=== PATIENT | female | born 1950 | race Caucasian/White ===

== ENCOUNTER 2018-07-22 00:54 | Outpatient (CLI) | payer MEDICARE, BC, SELFPAY ==
[2018-07-22 13:20] LABS: Cholesterol 216 mg/dL (50-200); HDL Cholesterol 74 mg/dL (40-60); LDL CHOLESTEROL 126 mg/dL (<100); TSH 2.12 uIU/mL (0.358-3.74); Triglyceride 82 mg/dL (30-150)
== END 2018-07-22 01:14 ==
PROVIDERS: PCP Family Medicine; Visit Provider Family Medicine
DX: E03.9 Hypothyroidism, unspecified (principal); E78.5 Hyperlipidemia, unspecified
CPT/HCPCS: 36415; 80061; 83721; 84443

== ENCOUNTER 2018-08-21 00:45 | Outpatient (CLI) | payer MEDICARE, BC, SELFPAY ==
--- NOTE | 2018-08-21 15:15 | DI.MAMMO_ITS ---
SYMPTOMS/DIAGNOSIS: BREAST CA SCREENING, Z12.31 MAMMOGRAMS: Mammograms were interpreted according to the usual protocol including computer analysis with CAD system, tomosynthesis and C view imaging. Comparison is with the prior examinations. No masses or microcalcifications are seen. There is nothing to suggest malignancy. IMPRESSION: Negative mammogram. Routine screening is recommended. Category 1 , breast density B. MQSA ASSESSMENT OF FINDINGS: Negative. Category 1. Patient will receive a letter notifying them of these results. BI-RADS category B. There are scattered areas of fibroglandular density.
== END 2018-08-21 01:05 ==
PROVIDERS: PCP Family Medicine; Visit Provider Obstetrics & Gynecology Gynecology
DX: Z12.31 Encounter for screening mammogram for malignant neoplasm of breast (principal)
CPT/HCPCS: 77063; 77067

== ENCOUNTER 2018-10-29 01:59 | Outpatient (CLI) | payer MEDICARE, BC, SELFPAY ==
[2018-10-29 12:45] LABS: Bilirubin Negative (Negative); Blood Negative (Negative); Clarity Clear; Glucose Negative (Negative); Ketones Negative (Negative); Leukocyte Esterase Small (Negative); Nitrite Negative (Negative); Specific Gravity 1.015 (1.005-1.025); Urobilinogen 0.2 EU/dL (Up TO 0.2)
[2018-10-29 13:04] LABS: Bacteria Few HPF (Negative); C & S Indicated? Yes; Casts Negative LPF (Negative); Crystals Negative HPF (Negative); Epithelial Cells Few HPF (Negative); Mucus Trace (Negative); Other Cells Rare Renal (Negative); RBC Negative (0-2)
== END 2018-10-29 02:19 ==
PROVIDERS: Emergency Medicine; PCP Family Medicine; Visit Provider Family Medicine
DX: R30.0 Dysuria (principal)
CPT/HCPCS: 81003; 81015; 87086

== ENCOUNTER 2019-07-28 02:17 | Outpatient (CLI) | payer MEDICARE, BC, SELFPAY ==
[2019-07-28 11:13] LABS: HCT 39.5 % (36.0-46.0); HGB 12.9 g/dL (12.0-15.5); Mean Corp. HGB Concentration 32.7 g/dL (32.0-36.0); Mean Corpuscular Hemoglobin 29.5 pg (27.0-33.0); Mean Corpuscular Volume 90.2 fL (80-95); Mean Platelet Volume 10.3 fL (8.0-11.0); Platelet Count 187 x1000/uL (130-400); RBC 4.38 m/cumm (4.00-5.20); RBC Distribution Width 13.3 % (11.7-14.6); White Blood Cell Count 5.12 k/cumm (4.4-10.8)
[2019-07-28 11:46] LABS: BUN 19 mg/dL (7-18); CREATININE 0.76 mg/dL (0.55-1.02); Chloride 102 mmol/L (98-107); Glucose 115 mg/dL (70-100); Potassium 3.9 mmol/L (3.5-5.1); Sodium 140 mmol/L (136-145); TSH 1.88 uIU/mL (0.36-3.74)
[2019-07-29 08:42] LABS: Calculated LDL 154 mg/dL; Cholesterol 251 mg/dL (50-200); HDL Cholesterol 81 mg/dL (40-60); Triglyceride 82 mg/dL (30-150)
== END 2019-07-28 02:37 ==
PROVIDERS: PCP Family Medicine; Visit Provider Family Medicine
DX: E03.9 Hypothyroidism, unspecified (principal); I10 Essential (primary) hypertension; E78.5 Hyperlipidemia, unspecified
CPT/HCPCS: 36415; 80048; 80061; 85027; 84443

== ENCOUNTER 2019-08-23 13:40 | Outpatient (REF) | payer MEDICARE, BC, SELFPAY ==
--- NOTE | 2019-08-23 13:00 | PAPFT_PTH ---
PATIENT: Sienna Ramirez LOC: [facility] U#:[id number] AGE/SX: 69/F ROOM: RE08/23/[address]: Love Osorio : 1950 BED: DIS: 08/23/2019 SPEC #: [id number] RECD: 08/23/19 18:46 STATUS: WINDY REQ #: [id number] YOLY: 08/23/19 13:[address]: Love Osorio [facility]PT[facility] Cytology RECD BY: Irlanda Dee ENTERED: 08/23/19 18:47 SP TYPE: PAPFT ESPERANZA DR: Matt Gibson MD Tissues: 1 - CX/ENDOCX FOR PAP SMEARS Procedures: PAP THIN PREP/UVM Screening HPV DNA PROBE Comments: [id number]
== END 2019-08-23 14:00 ==
LOC: LBN 13:40
PROVIDERS: PCP Family Medicine; Visit Provider Obstetrics & Gynecology Gynecology
DX: Z12.4 Encounter for screening for malignant neoplasm of cervix (principal); Z11.51 Encounter for screening for human papillomavirus (HPV)
CPT/HCPCS: 88142; 87624

== ENCOUNTER 2019-08-24 00:45 | Outpatient (CLI) | payer MEDICARE, BC, SELFPAY ==
--- NOTE | 2019-08-24 15:25 | DI.MAMMO_ITS ---
EXAM: MG MAMMO SCREENING CLINICAL HISTORY: screening TECHNIQUE: Bilateral full field digital CC and MLO mammographic images were obtained with 3D tomosyn thesis and utilizing computer aided detection (CAD). COMPARISON: Available for comparison. FINDINGS: Masses/Architectural Distortion: There is a focal asymmetric density in the posterior central right b reast appreciated on the craniocaudad view. This area should be further evaluated with a spot compre ssion view. Ultrasound may be indicated at that time. Microcalcifications: No suspicious pleomorphic-type are seen. Skin Thickening/Nipple Retraction: None. IMPRESSION: 1. Focal asymmetric density in the posterior central right breast. This area should be further evalu ated with a spot compression view and ultrasound. BI-RADS Cat 0 - Assessment Incomplete: Need additional imaging evaluation Breast Density - Category B - Scattered areas of fibroglandular density A negative radiographic report should not delay biopsy if a dominant or clinically suspicious mass is present. Up to ten percent of cancers are not identified on mammography. A negative report may reinforce clinical impression. Adenosis and dense breasts may obscure an underlying neoplasm. False positive reports average 6 to 10%. Patient will receive a letter notifying them of these results.
== END 2019-08-24 01:05 ==
PROVIDERS: PCP Family Medicine; Visit Provider Obstetrics & Gynecology Gynecology
DX: Z12.31 Encounter for screening mammogram for malignant neoplasm of breast (principal); R92.8 Other abnormal and inconclusive findings on diagnostic imaging of breast
CPT/HCPCS: 77063; 77067

== ENCOUNTER 2019-08-31 01:08 | Outpatient (CLI) | payer MEDICARE, BC, SELFPAY ==
--- NOTE | 2019-08-31 10:05 | DI.MAMMO_ITS ---
EXAM: MG MAMMO SCREEN CALL BACK UNI CLINICAL HISTORY: FOCAL ASYMMETRIC DENSITY IN POSTERIOR CENTRAL RT BREAST TECHNIQUE: Bilateral full field digital CC and MLO mammographic images were obtained with 3D tomosyn thesis and utilizing computer aided detection (CAD). COMPARISON: 2009 through 08/24/19. FINDINGS: A spot compression CC view with tomography was performed for a small area of nodular asymmetry in th e central right breast. No persistent abnormality is seen on the additional views. IMPRESSION: Category 1, negative mammogram. Yearly screening mammography is recommended. Breast Density - Category B - Scattered areas of fibroglandular density.
== END 2019-08-31 01:28 ==
PROVIDERS: PCP Family Medicine; Visit Provider Obstetrics & Gynecology Gynecology
DX: Z12.31 Encounter for screening mammogram for malignant neoplasm of breast (principal); R92.8 Other abnormal and inconclusive findings on diagnostic imaging of breast; N64.59 Other signs and symptoms in breast
CPT/HCPCS: 77063; 77067

== ENCOUNTER 2020-07-21 03:04 | Outpatient (CLI) | payer MEDICARE, BC, SELFPAY ==
[2020-07-24 11:41] LABS: Patient Race White; SARS-CoV-2 RNA Undetected (Undetected); SARS-CoV-2 Specimen Source Nasopharynx
== END 2020-07-21 03:24 ==
PROVIDERS: PCP Nurse Practitioner; Visit Provider Nurse Practitioner Family
DX: J02.9 Acute pharyngitis, unspecified (principal); J06.9 Acute upper respiratory infection, unspecified
CPT/HCPCS: U0003

== ENCOUNTER 2020-08-09 04:44 | Outpatient (CLI) | payer MEDICARE, BC, SELFPAY ==
[2020-08-09 13:29] LABS: Hemoglobin A1C 5.8 % (<5.7)
[2020-08-09 13:39] LABS: Calculated LDL 125 mg/dL (<100); Cholesterol 227 mg/dL (<200); HDL Cholesterol 81 mg/dL (40-60); Triglyceride 107 mg/dL (<150)
== END 2020-08-09 05:04 ==
PROVIDERS: PCP Nurse Practitioner; Visit Provider Nurse Practitioner
DX: E03.9 Hypothyroidism, unspecified (principal); R73.01 Impaired fasting glucose
CPT/HCPCS: 36415; 80061; 83036

== ENCOUNTER 2020-09-18 02:44 | Outpatient (CLI) | payer SELFPAY ==
[2020-09-18 12:55] LABS: Abs Immature Grans 0.02 10^3/uL (0.0-0.06); Absolute Basophil Count 0.01 10^3/uL (0.0-0.2); Absolute Eosinophil Count 0.26 10^3/uL (0.0-0.7); Absolute Lymphocyte Count 1.48 10^3/uL (1.2-3.4); Absolute Monocyte Count 0.45 10^3/uL (0.1-0.8); Absolute Neutrophil Count 2.58 10^3/uL (1.2-6.7); Basophils % 0.2; Eosinophils % 5.4; HCT 38.3 % (36.0-46.0); HGB 12.4 g/dL (11.2-15.7); Immature Grans % 0.4; Lymphocytes % 30.8; MCH 28.8 pg (27.0-33.0); MCHC 32.4 % (32.0-36.0); MCV 88.9 fL (80-95); MPV 10.6 fL (8.0-11.0); Monocytes % 9.4; Neutrophils % 53.8; Nucleated RBC 0 %; Platelet Count 187 10^3/uL (130-400); RBC 4.31 10^6/uL (3.93-5.22); RDW 13.2 % (11.7-14.6); RDW-SD 43.8 fL
[2020-09-18 13:11] LABS: PTT Activated 24.8 sec (21.0-27.5); Prothrombin Time 9.9 sec (9.3-11.0)
[2020-09-18 13:24] LABS: ALT 21 U/L (14-59); AST 21 U/L (15-37); Albumin 3.9 g/dL (3.4-5.0); Alkaline Phosphatase 63 U/L (46-116); BUN 25 mg/dL (7-18); Bilirubin, Total 0.5 mg/dL (0.2-1.0); CREATININE 0.83 mg/dL (0.55-1.02); Calcium 8.9 mg/dL (8.5-10.1); Chloride 103 mmol/L (98-107); Creatine Kinase 39 U/L (26-192); Glucose 113 mg/dL (74-106); LDH 182 U/L (81-234); PHOSPHORUS 3.9 mg/dL (2.6-4.7); Potassium 3.9 mmol/L (3.5-5.1); Sodium 138 mmol/L (136-145); Total Protein 6.9 g/dL (6.4-8.2)
[2020-09-18 13:41] LABS: GGT 33 U/L (5-55)
== END 2020-09-18 03:04 ==
PROVIDERS: PCP Nurse Practitioner; Visit Provider Internal Medicine Pulmonary Disease
DX: Z79.899 Other long term (current) drug therapy (principal); Z00.6 Encounter for examination for normal comparison and control in clinical research program
CPT/HCPCS: 36415; 80053; 82550; 82977; 83615; 84100; 84443; 84550; 85025; 85610; 85730

== ENCOUNTER 2020-12-06 02:24 | Outpatient (REF) | payer SELFPAY ==
[2020-12-06 12:42] LABS: Abs Immature Grans 0.01 10^3/uL (0.0-0.06); Absolute Basophil Count 0.02 10^3/uL (0.0-0.2); Absolute Lymphocyte Count 1.55 10^3/uL (1.2-3.4); Absolute Monocyte Count 0.53 10^3/uL (0.1-0.8); Absolute Neutrophil Count 2.78 10^3/uL (1.2-6.7); Basophils % 0.4; Eosinophils % 5.8; HCT 38.5 % (36.0-46.0); HGB 12.6 g/dL (11.2-15.7); Immature Grans % 0.2; Lymphocytes % 29.9; MCH 29.2 pg (27.0-33.0); MCHC 32.7 % (32.0-36.0); MCV 89.1 fL (80-95); MPV 10.7 fL (8.0-11.0); Monocytes % 10.2; Neutrophils % 53.5; Nucleated RBC 0 %; Platelet Count 192 10^3/uL (130-400); RBC 4.32 10^6/uL (3.93-5.22); RDW 13.2 % (11.7-14.6); RDW-SD 43.2 fL; WBC 5.19 10^3/uL (4.4-10.8)
[2020-12-06 13:01] LABS: ALT 26 U/L (14-59); AST 25 U/L (15-37); Alkaline Phosphatase 61 U/L (46-116); Anion Gap 7.4 mmol/L (3-11); BUN 21 mg/dL (7-18); Bilirubin, Total 0.5 mg/dL (0.2-1.0); CO2 28.6 mmol/L (21.0-32.0); CREATININE 0.7 mg/dL (0.55-1.02); Calcium 8.9 mg/dL (8.5-10.1); Chloride 103 mmol/L (98-107); Creatine Kinase 52 U/L (26-192); Glucose 100 mg/dL (74-106); LDH 198 U/L (81-234); Potassium 3.9 mmol/L (3.5-5.1); Sodium 139 mmol/L (136-145); TSH 4.05 uIU/mL (0.36-3.74); Total Protein 7.3 g/dL (6.4-8.2)
[2020-12-06 13:04] LABS: PTT Activated 26.1 sec (21.0-27.5); Prothrombin Time 9.9 sec (9.3-11.0)
[2020-12-06 13:21] LABS: GGT 29 U/L (5-55)
== END 2020-12-06 02:25 | disposition home or self-care (01) ==
LOC: LOS 02:24
PROVIDERS: PCP Nurse Practitioner; Visit Provider Internal Medicine Pulmonary Disease
DX: Z00.6 Encounter for examination for normal comparison and control in clinical research program (principal)
CPT/HCPCS: 36415; 80053; 82550; 82977; 83615; 84100; 84443; 84550; 85025; 85610; 85730

== ENCOUNTER 2021-01-31 03:02 | Outpatient (CLI) | payer MEDICARE, BC, SELFPAY ==
[2021-01-31 13:31] LABS: TSH 2.28 uIU/mL (0.36-3.74)
== END 2021-01-31 03:03 | disposition home or self-care (01) ==
LOC: LOS 03:02
PROVIDERS: PCP Nurse Practitioner; Visit Provider Nurse Practitioner
DX: E03.9 Hypothyroidism, unspecified (principal)
CPT/HCPCS: 36415; 84443

== ENCOUNTER 2021-02-02 03:05 | Outpatient (CLI) | payer MEDICARE, BC, SELFPAY ==
--- NOTE | 2021-02-02 12:45 | DI.MAMMO_ITS ---
EXAM: MAMMO SCREENING CLINICAL HISTORY: screening,Z12.39 TECHNIQUE: Mammograms were interpreted according to the usual protocol including computer analysis w [employer] CAD system, tomosynthesis and C-view imaging. COMPARISON: 2010 through 2018 FINDINGS: The breasts are composed of scattered fibroglandular densities, Breast Density category B. The right MLO view shows mild motion and suboptimal positioning. A repeat right MLO view is requeste d. No suspicious masses or suspicious microcalcifications are seen. No skin thickening or abnormal axillary lymph nodes are seen. There has been no significant change from prior exams. IMPRESSION: BI-RADS Category 0 - Assessment Incomplete: Need additional imaging evaluation. A repeat right MLO v iew is requested due to motion.. Breast Density - Category B, scattered fibroglandular densities. A negative radiographic report should not delay biopsy if a dominant or clinically suspicious mass is present. Up to ten percent of cancers are not identified on mammography. A negative report may reinforce clinical impression. Adenosis and dense breasts may obscure an underlying neoplasm. False positive reports average 6 to 10%. Patient will receive a letter notifying them of these results.
== END 2021-02-02 03:25 ==
PROVIDERS: PCP Nurse Practitioner; Visit Provider Nurse Practitioner
DX: Z12.31 Encounter for screening mammogram for malignant neoplasm of breast (principal); R92.8 Other abnormal and inconclusive findings on diagnostic imaging of breast
CPT/HCPCS: 77063; 77067

== ENCOUNTER 2021-02-07 02:53 | Outpatient (CLI) | payer MEDICARE, BC, SELFPAY ==
--- NOTE | 2021-02-07 | DI.MAMMO_ITS ---
EXAM: MG MAMMO SCREEN CALL BACK UNI -RIGHT CLINICAL HISTORY: REPEAT VIEW DUE TO MOTION AND SUBOPTIMAL POSITIONING, F/U MAMMO. TECHNIQUE: Unilateral REPEAT RIGHT MLO VIEW WELL SPOT COMPRESSION CC VIEW were obtained with 3 D tomosynthesis and utilizing computer aided detection (CAD). . COMPARISON: Prior mammograms dating back 2010 were reviewed. This additional imaging was performe d due to motion on the right MLO view of the screening mammogram performed 02/02/2021 FINDINGS: Repeat right MLO view on today's study appears unremarkable. We also performed additional spot compr ession CC view because of an asymmetric density seen on the 4 12/30/2020 screening CC view located ap proximately 6 cm in from the nipple..This additional spot view renders this area less concerning. Re view of prior mammograms also reveal that this area underwent spot-compression view on August 31, 019. This asymmetric density was not evident on interval mammograms but is actually evident and unch anged from mammogram of April 2012. IMPRESSION: No radiographic evidence of malignancy in the right breast Appropriate follow-up is to keep this patient yearly mammogram schedule, with earlier imaging if a se lf detected breast change is noted.. The patient was informed of these findings and recommendations prior to leaving the department today. BI-RADS Category 2 - Benign Findings Breast Density - Category B - Scattered areas of fibroglandular density Breast density Category C or D implies that the patient has dense breast tissue. Dense breast tissue can make it harder to find cancer on a mammogram. Dense breast tissue is also associated with an incr eased risk of breast cancer. This information about the result of the mammogram report was provided to the patient to raise their awareness. Use this report when you speak with the patient about their risks for breast cancer, which includes their family history. At that time, you may recommend additional screening tests (Ultrasoun d or MRI) as these tests may add significant information. A negative radiographic report should not delay biopsy if a dominant or clinically suspicious mass is present. Up to ten percent of cancers are not identified on mammography. A negative report may reinforce clinical impression. Adenosis and dense breasts may obscure an underlying neoplasm. False positive reports average 6 to 10%. Patient will receive a letter notifying them of these results.
== END 2021-02-07 03:13 ==
PROVIDERS: PCP Nurse Practitioner; Visit Provider Nurse Practitioner
DX: Z12.31 Encounter for screening mammogram for malignant neoplasm of breast (principal); R92.8 Other abnormal and inconclusive findings on diagnostic imaging of breast; N64.59 Other signs and symptoms in breast
CPT/HCPCS: 77063; 77067

== ENCOUNTER 2021-08-15 01:38 | Outpatient (CLI) | payer MEDICARE, BC, SELFPAY ==
[2021-08-15 12:22] LABS: HGB 13.9 g/dL (11.2-15.7); MCH 28.9 pg (27.0-33.0); MCHC 33.1 % (32.0-36.0); MCV 87.3 fL (80-95); MPV 9.6 fL (8.0-11.0); Platelet Count 378 10^3/uL (130-400); RBC 4.81 10^6/uL (3.93-5.22); RDW 12.3 % (11.7-14.6); RDW-SD 39.9 fL; WBC 9.86 10^3/uL (4.4-10.8)
[2021-08-15 12:55] LABS: CREATININE 0.8 mg/dL (0.55-1.02); Calculated LDL 136 mg/dL (<100); Cholesterol 273 mg/dL (<200); HDL Cholesterol 119 mg/dL (40-60); Potassium 3.7 mmol/L (3.5-5.1); Triglyceride 90 mg/dL (<150)
[2021-08-15 13:25] LABS: Hemoglobin A1C 6.1 % (<5.7)
== END 2021-08-15 01:39 | disposition home or self-care (01) ==
LOC: LOS 01:39
PROVIDERS: PCP Nurse Practitioner; Visit Provider Nurse Practitioner
DX: I10 Essential (primary) hypertension (principal); E78.2 Mixed hyperlipidemia; R73.01 Impaired fasting glucose
CPT/HCPCS: 36415; 80061; 85027; 82565; 83036; 84132

== ENCOUNTER 2021-08-30 13:25 | Inpatient (IN) | payer MEDICARE, BC, SELFPAY ==
[2021-08-30] VITALS (91 sets, daily range): BP systolic 99–149; BP diastolic 50–92; PULSE 69–154; RESP 1–35; TEMP 36–36.8; O2SAT 68–100
--- NOTE | 2021-08-30 13:30 | RT.EKG_ITS ---
APPROVED REPORT Exam: Resting ECG Reason for Exam: sob Patient Location: E HR:93 bpm ECG Measurements Heart Rate 93 AXIS OH 157 P 5 QRSd 113 QRS -30 QT 349 T -14 QTc 434 Conclusion Sinus rhythm...normal P axis, V-rate 60- 99 Atrial premature complex...SV complex w/ short R-R interval Left ventricular hypertrophy...multiple LVH criteria
[2021-08-30] MEDS: methylPREDNISolone SUCC 40 MG VIAL IVP (15:32)
[2021-08-30 15:33] LABS: Source Nasal/Nares
[2021-08-30 15:35] LABS: Abs Immature Grans 0.06 10^3/uL (0.0-0.06); Absolute Basophil Count 0.01 10^3/uL (0.0-0.2); Absolute Lymphocyte Count 0.32 10^3/uL (1.2-3.4); Absolute Monocyte Count 0.25 10^3/uL (0.1-0.8); Absolute Neutrophil Count 6.07 10^3/uL (1.2-6.7); Basophils % 0.1; Eosinophils % 1.5; HCT 32.2 % (36.0-46.0); HGB 10.9 g/dL (11.2-15.7); Immature Grans % 0.9; Lymphocytes % 4.7; MCH 28.6 pg (27.0-33.0); MCHC 33.9 % (32.0-36.0); MCV 84.5 fL (80-95); MPV 9.2 fL (8.0-11.0); Monocytes % 3.7; Neutrophils % 89.1; Nucleated RBC 0 %; RBC 3.81 10^6/uL (3.93-5.22); RDW 12.8 % (11.7-14.6); RDW-SD 39.4 fL; WBC 6.81 10^3/uL (4.4-10.8)
[2021-08-30 15:36] LABS: Platelet Count 144 10^3/uL (130-400)
--- NOTE | 2021-08-30 15:50 | DI.RAD_ITS ---
Exam(s) XR PORTABLE CHEST AP EXAM: XR PORTABLE CHEST AP CLINICAL HISTORY: hypoxia. TECHNIQUE: 2D digital imaging was performed. COMPARISON: CR CHEST 2 VIEWS PA,LAT from 12/08/2015 FINDINGS: Heart size is upper normal. The mediastinum is not widened. Increased interstitial markings both lungs. Some nodular-type infiltrate evident in the left lower l obe. No pleural effusions IMPRESSION: Abnormal findings as above. Recommend nonportable PA and lateral views when clinically possible DATA REPOSITORY: RADIATION DOSE DELIVERED: All CT scans at this facility use at least one of these dose optimization techniques: automated exposure control; mA and/or kV adjustment per patient size (includes targeted e xams where dose is matched to clinical indication); or iterative reconstruction.
[2021-08-30 16:03] LABS: ALT 28 U/L (14-59); AST 53 U/L (15-37); Albumin 3.1 g/dL (3.4-5.0); Alkaline Phosphatase 53 U/L (46-116); Anion Gap 7.8 mmol/L (3-11); BUN 19 mg/dL (7-18); Bilirubin, Total 1.1 mg/dL (0.2-1.0); CO2 29.2 mmol/L (21.0-32.0); CREATININE 0.7 mg/dL (0.55-1.02); Calcium 8.4 mg/dL (8.5-10.1); Chloride 92 mmol/L (98-107); Glucose 106 mg/dL (74-106); Magnesium 1.6 mg/dL (1.8-2.4); NT-proBNP 4372 pg/mL (<300); Sodium 129 mmol/L (136-145); Total Protein 6.4 g/dL (6.4-8.2)
[2021-08-30 16:08] LABS: Potassium 2.8 mmol/L (3.5-5.1)
--- NOTE | 2021-08-30 16:15 | DI.CT_ITS ---
Exam(s) CT CHEST PE CTA EXAM: CT CHEST PE CTA CLINICAL HISTORY: increased hypoxia, factor 5 leiden. TECHNIQUE: Imaging Protocol: Axial CT angiography was performed with multi-slice acquisition and mu lti-planar and/or 3D reconstructions. CONTRAST MATERIAL: Intravenous: Omnipaque 350 Contrast volume:100 ml COMPARISON: CT CHEST WITH CONTRAST from 01/19/2016 CR,XR XR PORTABLE CHEST AP from 08/30/2021 FINDINGS: Exam is somewhat limited by respiratory motion and expiratory changes. Pulmonary Arteries: No eviden ce of filling defect to suggest pulmonary emboli. Tracheobronchial tree: Patent where visualized. Mild traction bronchiectasis greater in the lower lob es. Mediastinum and Yuki: No dominant adenopathy or fluid collection. Pulmonary parenchyma: No consolidation or dominant measurable mass. Increased interstitial markings w ith peripheral honeycombing. Peripheral basilar blebs. Bilateral ground-glass opacities with a patc hy appearance. This could represent viral pneumonitis. Pleura: No effusion or pneumothorax. Heart: The heart is not dilated. coronary artery calcifications are seen. Aorta: Thoracic aorta non-dilated. No aneurysm. No dissection. Mild atherosclerotic changes. Upper abdomen: Unremarkable. Bones: Degenerative changes in the spine. Displaced right 10th rib fracture, acute or subacute. Old right 9th rib fracture. IMPRESSION: No evidence of pulmonary embolism. Worsening pulmonary fibrosis and traction bronchiectasis.. Evalua tion of the lungs is limited due to respiratory motion and expiratory changes. Viral pneumonitis rylan fabio expiratory changes. Right 9th rib fracture. RADIATION DOSE DELIVERED: 323.7mGy.cm Total DLP DATA REPOSITORY: All CT scans at this facility are submitted to the National Radiology Data Registry (NRDR) Dose Index Registry (DIR) with the [employer] (ACR). RADIATION OPTIMIZATION: All CT scans at this facility use at least one of these dose optimization te chniques: automated exposure control; mA and/or kV adjustment per patient size (includes targeted exa ms where dose is matched to clinical indication); or iterative reconstruction.
[2021-08-30 16:26] LABS: COVID-19 PCR Negative (Negative)
--- NOTE | 2021-08-30 16:27 | DI.VRAD_ITS ---
PROCEDURE INFORMATION: Exam: XR Chest Exam date and time: 08/30/2021 3:02 PM Age: 71 years old Clinical indication: Other: Hypoxia TECHNIQUE: Imaging protocol: XR of the chest. Views: 1 view. COMPARISON: CT CHEST WITH CONTRAST 01/19/2016 2:21 PM FINDINGS: Lungs: Worsened diffuse peripheral dominant lacy thin subpleural interstitial lung densities. No airspace opacification. No pleural effusion or pneumothorax. Increased similar, smooth benign-appearing biapical capping. The changes are greater on such that there now appears to be peripheral ground-glass opacification raising suspicion for possible superimposed other disease. Pleural spaces: No pneumothorax or pleural effusion. Heart/Mediastinum: Normal heart and cardio-mediastinal silhouette. Vasculature: Normal pulmonary vessels and width of the vascular pedicle. Bones/joints: Suspected lateral right 10th rib fracture. IMPRESSION: Mixed findings in the chest where there is worsened diffuse subpleural interstitial disease such that other more acute airspace disease cannot be excluded. Also, a lower lateral right rib fractures suspected but of unknown chronicity. Given the complexity of the findings, consider chest CT for further evaluation. Dictated and Authenticated by: Rich Ty MD. Ordering:MARIO Davis MD
--- NOTE | 2021-08-30 17:09 | ED.GENADUL_ITS ---
Discharge Plan Disposition Patient Disposition: [facility] INPATIENT Condition: Stable Discharge Details Clinical Impression: Pulmonary fibrosis, Hypoxia, Non-ST elevation LA (NSTEMI) Admit Date/Time: 08/30/21 18:49 Admit Provider: Lisa Li Attending Provider: Lisa Li Primary Care Provider: Regi Helton ED Provider: Praneeth Perez Discharge Data Discharge Date/Time-TO BE ENTERED AT DEPARTURE: 08/30/21 23:21 Medical Decision Making <Ryan Grady MD - Last Filed: 08/31/21 22:04> 1715 --61-year-old female with history of pulmonary fibrosis, on home O2, currently on prednisone taper, here with increased shortness of breath with dyspnea on exertion since yesterday. Patient saturating in the 60s off oxygen. Oxygen was administered. patient saturating in the 90s on 7 L nasal cannula and feeling much better. EKG was reviewed and interpreted by me: Please see report, LVH, no STEMI Chest x-ray was reviewed and interpreted by radiology:FINDINGS: Heart size is upper normal. The mediastinum is not widened. Increased interstitial markings both lungs. Some nodular-type infiltrate evident in the left lower lobe. No pleural effusions. Consider acute pulmonary embolism. CT of the chest was interpreted by radiology: IMPRESSION: Mixed findings in the chest where there is worsened diffuse subpleural interstitial disease such that other more acute airspace disease cannot be excluded. Also, a lower lateral right rib fractures suspected but of unknown chronicity. Given the complexity of the findings, consider chest CT for further evaluation. Labs reviewed and concerning for acute CHF exacerbation with elevated troponin concerning for NSTEMI. Will give ASA. Plan to trend trop. Hypomagnesemia and hypokalemia noted. I will initiate correction and give magnesium 1 g and potassium 20 mg IV. --Second troponin slightly improved. --Trialed lower dose of oxygen which patient tolerated initially and then became hypoxic and developed tachycardia and chest discomfort. High-dose nasal cannula was reapplied. Attempted humidified oxygen and flow insufficient. I requested higher flow humidified O2 from nursing. Nursing salvage supervisor requested RT involvement. 2013--I spoke with Dr. Li who requests that I speak with [facility] regarding potential transfer. Call to [facility] transfer center and they are checking on capacity. <Praneeth Perez MD - Last Filed: 08/30/21 22:19> unfortunately [facility] does not have bed. Respiratory therapy placed her on hfnc and she is stable with this, denies chest pain and apparently the oxygen valve her NC was attached to wasn't functioning. Discussed with Dr. Rivers who accepts for admission HPI <Ryan Grady MD - Last Filed: 08/31/21 22:04> General Mode of arrival: ambulatory . Date/Time Provider Initiated Documentation: 08/30/21 14:59 . Limitations to Documentation: no limitations . Information obtained by: patient . HPI Narrative: 71yo female with history of pulmonary fibrosis, here with increased shortness of breath since yesterday with associated dyspnea on exertion. Shortness of breath is moderate to severe. Improved now with increased oxygen administration. Patient typically uses nasal cannula 2 L over the past month. She has been on a prednisone taper. Patient denies associated chest pain or calf pain. Related Data Home Medications Medication Instructions Recorded Confirmed ibuprofen 2 tab PO TID PRN #100 tab-cap 06/04/13 08/30/21 Sodium Chloride For Inhalation 15 ml INHALATION BID 07/01/17 08/31/21 [Sodium Chloride] nintedanib 100 mg capsule 100 mg PO BID cap 08/17/18 08/30/21 famotidine 20 mg tablet 20 mg PO BID PRN 07/20/19 08/31/21 atenolol 50 mg tablet 50 mg PO DAILY #90 tab 10/19/20 08/30/21 levothyroxine 50 mcg tablet 50 mcg PO DAILY #90 tab-cap 10/19/20 08/30/21 losartan 100 mg tablet 100 mg PO DAILY #90 tab-cap 10/19/20 08/30/21 sertraline 50 mg tablet 50 mg PO DAILY #90 tab-cap 10/19/20 08/30/21 hydrochlorothiazide 25 mg tablet 25 mg PO DAILY 07/31/21 08/30/21 varicella-zoster glycoE [id number] 0.5 ml IM ONCE #1 ea 08/07/21 08/30/21 adj(PF) 50 mcg/0.5 mL IM susp, kit atorvastatin 20 mg PO HS 08/31/21 08/31/21 codeine-guaifenesin 10 ml PO HS PRN 08/31/21 08/31/21 ibuprofen [Advil] 200 mg PO PRN PRN 08/31/21 08/31/21 loratadine-pseudoephedrine 1 tab PO DAILY 08/31/21 08/30/21 [Lorata-D] prednisone 08/31/21 prednisone See Rx Instructions .ROUTE .COMPLEX 08/31/21 08/31/21 Previous Rx's Medication Instructions Recorded atenolol 50 mg tablet 50 mg PO DAILY #90 tab 10/19/20 levothyroxine 50 mcg tablet 50 mcg PO DAILY #90 tab-cap 10/19/20 losartan 100 mg tablet 100 mg PO DAILY #90 tab-cap 10/19/20 sertraline 50 mg tablet 50 mg PO DAILY #90 tab-cap 10/19/20 varicella-zoster glycoE vacc-[id number] 0.5 ml IM ONCE #1 ea 08/07/21 adj(PF) 50 mcg/0.5 mL IM susp, kit Allergies Allergy/AdvReac Type Severity Reaction Status Date / Time Sulfa (Sulfonamide Allergy Unknown Verified 08/30/21 13:50 Antibiotics) General Stated Complaint: SOB DANIEL: 2 Review of Systems <Ryan Grady MD - Last Filed: 08/31/21 22:04> All systems reviewed & are unremarkable except as noted in HPI and below Constitutional Constitutional: Denies fever(s) Cardiovascular Cardiovascular: Reports dyspnea Respiratory Respiratory: Denies cough and Reports dyspnea PFSH <Ryan Grady MD - Last Filed: 08/31/21 22:04> Active Problem List Elevated troponin (Acute) Acute exacerbation of idiopathic pulmonary fibrosis (Acute) Rib fracture (Acute) Hypomagnesemia (Acute) Hypokalemia (Acute) Discharge planning issues (Acute) DVT prophylaxis (Acute) Acute and chronic respiratory failure with hypoxia (Acute) Hypoxia (Acute) Non-ST elevation LA (NSTEMI) (Acute) Factor V Leiden carrier (Chronic) Pulmonary fibrosis (Chronic) Medical History Cervical 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 (10/30/11) h/o LEEP 2004 Chronic low back pain Chronic respiratory failure with hypoxia Depression (06/20/15) Factor V Leiden mutation H/O cervical fibromuscular dysplasia (09/11/15) HTN (hypertension) Hyperlipidemia Hypothyroidism (acquired) Impaired fasting glucose (09/19/12) Mass of skin (12/01/12) Pulmonary fibrosis Pulmonary nodule, right 07/2021- 10 mm, with enlarged hilar lymph node- rec 3 mo f/- [facility] following Rupture of right tympanic membrane (02/07/15) due to infection, healed 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 HIRAM Zaragoza of colonoscopy S/P right knee arthroscopy Family History Mother , AGE 63 Essential hypertension Heart disease Lung cancer Hypertension Father , AGE 81 Essential hypertension Stroke Lung cancer Heart disease Hypertension Sister , AGE 63 Essential hypertension Hyperlipidemia Bladder cancer Maternal Grandfather , age 56 Essential hypertension Heart disease Stroke Hypertension Paternal Grandfather , age 59 Throat cancer Hypertension Maternal Grandmother , age 54 Diabetes Hypertension Paternal Grandmother , age 82 Stomach cancer Hypertension Maternal Aunt Breast cancer Social History Smoking/Tobacco Use Status: Former Tobacco Use Quit Date: 10/13/05 Tobacco: How many years used: 5 Second Hand Exposure: Yes (As a child) Smoking risk assessment performed?: Yes Alcohol Intake: current Alcohol Intake frequency: a few times a week Alcohol type: wine Drug use: Never Substance use type: does not use Caregiver/Support person: No Household members: none Housing: house Number of Children: 3 Communication Needs: None Education Level: college Do you need help understanding health information?: Never 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 Pets and animals: No Sexually active: No Do you think of yourself as: straight/heterosexual Current gender identity: female What is your relationship status?: How often do you talk on the phone with friends or family?: three or more times per week How often do you get together with friends or relatives?: three or more times per week How often do you attend alevism or samaritan services?: 4 or more times per year Do you belong to any clubs or organized social groups?: yes Panel score (0-1 are the most socially isolated patients): 3 What type of physical activity do you participate in: walking Duration: 15-30 minutes/day Frequency: daily Jayde/Confucianism: Cheondoism Special jayde needs: No Seatbelt use: always Helmet use: Yes Helmet use: always Drive intox or ride w/intox waste collection driver: No Female Reproductive History Menstrual Menopause type: natural History History 3 Para Hx # Term Pregnancies 3 Multiple births Hx # Pregnancies Ectopic pregnancies AB induced Hx Number of Living Children AB spontaneous Exam <Ryan Grady MD - Last Filed: 08/31/21 22:04> Const General: cooperative and no acute distress HENMT Head: normocephalic and atraumatic Mouth: moist mucous membranes Eyes Conjunctivae: normal conjunctivae Sclera: normal sclerae EOM: EOM intact bilaterally Neck Neck: trachea midline and supple Resp Effort & Inspection: normal respiratory effort, no cough and not labored Auscultation: rales bilaterally at the base, no rhonchi and no wheezes Cardio Rate: regular rate and not tachycardic Rhythm: regular rhythm GI Palpation: soft, not firm, no guarding, no masses, not rigid and nontender Skin General skin exam: no rashes or lesions noted Neuro General: patient alert, patient awake, patient oriented x3 and tone normal Extrem General: no calf tenderness and no edema Psych Appearance: grossly normal Mental Status: mental status grossly normal Speech and Movement: speech and movement normal Course <Ryan Grady MD - Last Filed: 08/31/21 22:04> Vital Signs Vital signs: Vital Signs Temperature 36.6 C 08/30/21 13:40 Pulse 95 H 08/30/21 13:40 Respiratory Rate 35 H 08/30/21 13:40 Blood Pressure 120/76 08/30/21 13:40 Pulse Oximetry 68 L 08/30/21 13:40 Temperature 36.6 C 08/30/21 13:40 Temperature Source Skin 08/30/21 13:40 Pulse 93 H 08/30/21 16:45 Pulse 95 H 08/30/21 16:50 Respiratory Rate 24 08/30/21 16:50 Respiratory Effort 08/30/21 14:46 Respiratory Depth Normal 08/30/21 14:46 Respiratory Pattern Normal 08/30/21 14:46 Blood Pressure 138/83 08/30/21 16:45 Blood Pressure Mean 94 08/30/21 16:45 Blood Pressure Position Supine 08/30/21 13:40 Pulse Oximetry 97 08/30/21 16:50 Oxygen Delivery Method Nasal Cannula 08/30/21 14:48 Oxygen Flow Rate 10 08/30/21 14:48 Pain Level 0 08/30/21 13:40 Lab/Test Results Lab/Test Results: Laboratory Tests Range/Units 08/30/21 08/30/21 08/30/21 15:25 15:25 15:25 WBC (4.4-10.8) 10^3/uL 6.81 RBC (3.93-5.22) 10^6/uL 3.81 L Hgb (11.2-15.7) g/dL 10.9 L Hct (36.0-46.0) % 32.2 L MCV (80-95) fL 84.5 MCH (27.0-33.0) pg 28.6 MCHC (32.0-36.0) % 33.9 RDW (11.7-14.6) % 12.8 Plt Count (130-400) 10^3/uL 144 D MPV (8.0-11.0) fL 9.2 Immature Gran % 0.9 Neutrophils % 89.1 Lymphocytes % 4.7 Monocytes % 3.7 Eosinophils % 1.5 Basophils % 0.1 Nucleated RBC % % 0 Absolute Neutrophils (1.2-6.7) 10^3/uL 6.07 Absolute Lymphocytes (1.2-3.4) 10^3/uL 0.32 L Absolute Monocytes (0.1-0.8) 10^3/uL 0.25 Absolute Eosinophils (0.0-0.7) 10^3/uL 0.10 Absolute Basophils (0.0-0.2) 10^3/uL 0.01 Sodium (136-145) mmol/L 129 L Potassium (3.5-5.1) mmol/L 2.8 L* Chloride (98-107) mmol/L 92 L Carbon Dioxide (21.0-32.0) mmol/L 29.2 Anion Gap (3-11) mmol/L 7.8 BUN (7-18) mg/dL 19 H Creatinine (0.55-1.02) mg/dL 0.7 Estimated GFR/1.73 m2 (mL/min/1.73m2) >= 60.00 Glucose (74-106) mg/dL 106 Calcium (8.5-10.1) mg/dL 8.4 L Magnesium (1.8-2.4) mg/dL 1.6 L Total Bilirubin (0.2-1.0) mg/dL 1.1 H AST (15-37) U/L 53 H ALT (14-59) U/L 28 Alkaline Phosphatase (46-116) U/L 53 Troponin I (<0.06) ng/mL 0.40 H* NT-Pro-B Natriuret Pep (<300) pg/mL 4372 H Total Protein (6.4-8.2) g/dL 6.4 Albumin (3.4-5.0) g/dL 3.1 L COVID-19 Source Nasal/Nares
[2021-08-30] MEDS: Normal Saline - Diluent 50 ML VIAL IV (17:10)
[2021-08-30] MEDS: Normal Saline Flush 10 ML SYR IVP (17:10)
[2021-08-30] MEDS: Omnipaque 350 MG/ML 100 ML BTL IJ (17:10)
--- NOTE | 2021-08-30 17:15 | RT.EKG_ITS ---
APPROVED REPORT Exam: Resting ECG Reason for Exam: sob Patient Location: E HR:92 bpm ECG Measurements Heart Rate 92 AXIS MS 151 P 19 QRSd 107 QRS -30 QT 395 T -23 QTc 488 Conclusion Unknown rhythm, irregular rate...V-rate 60-149, variation>10% Left ventricular hypertrophy...multiple LVH criteria Probable anterior infarct, age indeterminate...Q >35mS, T neg, V2-V5
[2021-08-30] MEDS: MAGNESIUM SULFATE 1 GM/100 ML BAG IVPB (17:33)
--- NOTE | 2021-08-30 18:03 | DI.VRAD_ITS ---
PROCEDURE INFORMATION: Exam: CTA Chest With Contrast Exam date and time: 08/30/2021 4:25 PM Age: 71 years old Clinical indication: Other: Increased hypoxia, factor 5 leiden TECHNIQUE: Imaging protocol: Computed tomographic angiography of the chest with contrast. 3D rendering (Not supervised by radiologist): MIP and/or 3D reconstructed images were created by the technologist. Contrast material: OMNIPAQUE 350; Contrast volume: 100 ml; Contrast route: INTRAVENOUS (IV); COMPARISON: CT CHEST WITH CONTRAST 01/19/2016 2:21 PM FINDINGS: Limitations: None. Pulmonary arteries: Normal caliber and contrast opacification. Arterial contrast enhancement is diagnostic. Aorta: Mild atherosclerosis, otherwise, unremarkable. Great vessels off aortic arch: Normal caliber. No significant stenosis. Lungs: There is diffusely worsened subpleural cystic destructive change and increased caliber of the bronchi extending to those regions compatible with worsening traction bronchiectasis. Additionally there is increased interstitial thickening in the diseased segments. Diffuse bilateral ground-glass lung opacification is new with mild sparing at the extremes of both lung apices, left more so than right and in portions of the right middle lobe and non dependent right lower lobe. Pleural spaces: No pleural effusion or pneumothorax. Heart: Normal dimensions. No pericardial effusion. Coronary arteries: Multivessel calcification. Lymph nodes: No enlarged or otherwise suspicious axillary, mediastinal or hilar adenopathy. Bones/joints: Acute appearing displaced posterolateral right 10th rib fracture. Healed lateral right 9th rib fracture. Soft tissues: Normal. IMPRESSION: 1. Negative for pulmonary arterial embolism. 2. Worsened pulmonary disease, mainly in the form of worsened diffuse subpleural lung fibrosis but with diffuse ground-glass lung opacification of uncertain etiology or significance. Findings are not felt to be associated with pulmonary edema and may represent atypical diffuse infection including viral etiologies or changes associated with worsening lung fibrosis. Clinical correlation for acute infection with appropriate testing to corroborate is recommended. 3. Acute displaced posterolateral right 10th rib fracture. Dictated and Authenticated by: Rich Ty MD. Ordering:MARIO Davis MD
[2021-08-30 18:27] LABS: Troponin I 0.39 ng/mL (<0.06)
[2021-08-30] MEDS: Normal Saline 1,000 ML 100 ML IV (18:36)
[2021-08-30] MEDS: POTASSIUM CHLORIDE 20 MEQ/100 ML BAG 50 MEQ IVPB (18:36)
--- NOTE | 2021-08-30 19:33 | NUR.NOTE ---
Nursing Note: Patient O2 saturation showing 89% on 5 L/min via NC (high-flow) patient noted to be intermitently mouth breathing. Patient placed on Oxymask and O2 titrated up to 12 L/min and O2 saturation showed 93% for a few minutes. O2 saturation began to decrease to 90% (normal pleth) Dr. Grady notified and assessing patient.
--- NOTE | 2021-08-30 19:40 | NUR.NOTE ---
Nursing Note: Patient placed on humidified oxygen at 9L/min via high flow NC patient currently 92%
[2021-08-30] MEDS: Albuterol/Ipratropium 3 ML UPD VIAL UPD (20:00)
[2021-08-30] MEDS: Potassium Chloride 20 MEQ TABCR 40 MEQ PO (21:43)
[2021-08-30] MEDS: methylPREDNISolone SUCC 125 MG VIAL 80 MG IVP (21:45)
--- NOTE | 2021-08-30 22:10 | NUR.NOTE ---
Nursing Note: 2200 troponin collected and taken to lab. Patient remains on high flow oxygen and currently sating 92%, alert and orintated at this time. No distress noted. Vitals remain stable.
[2021-08-30 22:37] LABS: Troponin I 0.29 ng/mL (<0.06)
[2021-08-31] VITALS (191 sets, daily range): BP systolic 108–168; BP diastolic 60–115; PULSE 76–103; RESP 0–38; TEMP 36–37.1; O2SAT 79–99
--- NOTE | 2021-08-31 00:21 | W.PM.HP.N ---
Date of service: 08/31/21 Time of Service: 00:22 Assessment and Plan Assessment and plan (1) Acute exacerbation of idiopathic pulmonary fibrosis: Status: Acute Assessment and plan: I suspect that this exacerbation is precipitated by the steroid taper. Increase prednisone to 60 mg PO daily. R/o infection with a procalcitonin. Continue ofev, nebs. Consult pulmonology. (2) Acute and chronic respiratory failure with hypoxia: Status: Acute Assessment and plan: Due to above. As above. PE ruled out. (3) Elevated troponin: Status: Acute Assessment and plan: In setting of hypoxemia as well as SVT. I doubt that it represents a true ACS. Will consult cardiology. Repeat EKG in am and obtain echo. (4) SVT (supraventricular tachycardia): Status: Resolved Assessment and plan: I suspect that this was being triggered by hypoxemia. Will obtain echo/EKG. Cardiology consult. Continue home atenolol. Replete K/mag (5) Chest pain: Status: Resolved Assessment and plan: As above - in setting of hypoxemia/SVT, even though troponin is elevated, true ACS is less likely. Consult cardiology. Obtain echo. Repeat EKG in am. Will give one time dose of aspirin 325 mg and check FLP. (6) Hypokalemia: Status: Acute Assessment and plan: The patient was recently initiated on HCTZ which can cause hypokalemia. Replete and recheck in am. Also, replete magnesium. (7) Hypomagnesemia: Status: Acute Assessment and plan: Replete, recheck in am (8) Rib fracture: Status: Acute Assessment and plan: Likely due to cough as the patient is denying trauma. Will check vitamin D level. (9) Discharge planning issues: Status: Acute Assessment and plan: Full code as confirmed by conversation with the patient on admission (10) DVT prophylaxis: Status: Acute Assessment and plan: Enoxaparin SC History of Present Illness History of Present Illness Chief Complaint: Worsening dyspnea on exertion Narrative: Ms Ramirez is a 71 year old female with h/o pulmonary fibrosis on ofev, chronic hypoxic respiratory failure on 2L of O2 at baseline (was initiated on O2 about 6 weeks ago, followed by [facility] pulmonology), hypertension, hypothyroidism, who presented to [facility] ED on 08/30/21 c/o worsening exertional dyspnea for two days. The patient was saturating in the 70% range on her usual 2L of O2 at home this morning at rest, whereas before she would normally be around 88%, only briefly dipping into the 70s and on exertion. During the periods of low oxygen saturations, she would also feel like her heart is racing, and this morning she also had a substernal ache which resolved once the oxygen saturation came up. She states she had a stress test more than 20 years ago which was negative and has never had a cardiac cath. According to the ED provider, the patient saturated between 60-70% on arrival to the ED on 2L. The patient required up to 9 L of O2 in the ED - however, there were issues with the oxygen delivery system, and it is unclear just how much oxygen the patient was actually getting. During her ED stay, she did appear to go into SVT, which was not caught on EKG and was self-limited. She ruled out for COVID-19. The patient was found to have an elevated troponin of 0.40 without evidence of acute ischemia on EKG, which has now trended down to 0.29. PE has been ruled out with a negative CTA of the chest. The patient is now on humidified heated high flow system 50 L 40% FiO2 saturating in the 90s. Hospitalist admission was requested. The patient denies contact with anyone with symptoms of or confirmed diagnosis of COVID-19. She is fully vaccinated against COVID-19 but has not yet had a booster. She did have a temperature of 100.9 two days ago. Her sputum has not changed colors and she does not otherwise feel sick, specifically denying changes to taste/smell, nausea/diarrhea. She denies trauma to her ribs and thinks maybe it's cough that caused her to have a rib fracture seen on CT. She is full code. Review of Systems All systems reviewed & are unremarkable except as noted in HPI and below [facility] Active Problem List Elevated troponin (Acute) Acute exacerbation of idiopathic pulmonary fibrosis (Acute) Rib fracture (Acute) Hypomagnesemia (Acute) Hypokalemia (Acute) Discharge planning issues (Acute) DVT prophylaxis (Acute) Acute and chronic respiratory failure with hypoxia (Acute) Hypoxia (Acute) Non-ST elevation CO (NSTEMI) (Acute) Factor V Leiden carrier (Chronic) Pulmonary fibrosis (Chronic) Medical History Cervical 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 (10/30/11) h/o LEEP 2003 Chronic low back pain Chronic respiratory failure with hypoxia Depression (06/20/15) Factor V Leiden mutation H/O cervical fibromuscular dysplasia (06/23/15) HTN (hypertension) Hyperlipidemia Hypothyroidism (acquired) Impaired fasting glucose (09/19/12) Mass of skin (12/01/12) Pulmonary fibrosis Pulmonary nodule, right 07/2021- 10 mm, with enlarged hilar lymph node- rec 3 mo f/- 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 HIRAM Zaragoza of colonoscopy S/P right knee arthroscopy Family History Mother , AGE 63 Essential hypertension Heart disease Lung cancer Hypertension Father , AGE 81 Essential hypertension Stroke Lung cancer Heart disease Hypertension Sister , AGE 63 Essential hypertension Hyperlipidemia Bladder cancer Maternal Grandfather , age 56 Essential hypertension Heart disease Stroke Hypertension Paternal Grandfather , age 59 Throat cancer Hypertension Maternal Grandmother , age 54 Diabetes Hypertension Paternal Grandmother , age 82 Stomach cancer Hypertension Maternal Aunt Breast cancer Social History Smoking/Tobacco Use Status: Former Tobacco Use Quit Date: 10/13/05 Tobacco: How many years used: 5 Second Hand Exposure: Yes (As a child) Smoking risk assessment performed?: Yes Alcohol Intake: current Alcohol Intake frequency: a few times a week Alcohol type: wine Drug use: Never Substance use type: does not use Caregiver/Support person: No Household members: none Housing: house Number of Children: 3 Communication Needs: None Education Level: college Do you need help understanding health information?: Never 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 Pets and animals: No Sexually active: No Do you think of yourself as: straight/heterosexual Current gender identity: female What is your relationship status?: How often do you talk on the phone with friends or family?: three or more times per week How often do you get together with friends or relatives?: three or more times per week How often do you attend mu-ism or judaism services?: 4 or more times per year Do you belong to any clubs or organized social groups?: yes Panel score (0-1 are the most socially isolated patients): 3 What type of physical activity do you participate in: walking Duration: 15-30 minutes/day Frequency: daily Jayde/Christianity: Buddhist Special jayde needs: No Seatbelt use: always Helmet use: Yes Helmet use: always Drive intox or ride w/intox bus van driver: No Female Reproductive History Menstrual Menopause type: natural History History 3 Para Hx # Term Pregnancies 3 Multiple births Hx # Pregnancies Ectopic pregnancies AB induced Hx Number of Living Children AB spontaneous Meds Allergies and Home Medications Allergies Allergy/AdvReac Type Severity Reaction Status Date / Time Sulfa (Sulfonamide Allergy Unknown Verified 08/30/21 13:50 Antibiotics) Home Medications Medication Instructions Recorded Confirmed Type ibuprofen 2 tab PO TID PRN #100 tab-cap 06/04/13 08/30/21 History Sodium Chloride For Inhalation 15 ml INHALATION BID 07/01/17 08/31/21 History [Sodium Chloride] nintedanib 100 mg capsule 100 mg PO BID cap 08/17/18 08/30/21 History famotidine 20 mg tablet 20 mg PO BID PRN 07/20/19 08/31/21 History atenolol 50 mg tablet 50 mg PO DAILY #90 tab 10/19/20 08/30/21 Rx levothyroxine 50 mcg tablet 50 mcg PO DAILY #90 tab-cap 10/19/20 08/30/21 Rx losartan 100 mg tablet 100 mg PO DAILY #90 tab-cap 10/19/20 08/30/21 Rx sertraline 50 mg tablet 50 mg PO DAILY #90 tab-cap 10/19/20 08/30/21 Rx hydrochlorothiazide 25 mg tablet 25 mg PO DAILY 07/31/21 08/30/21 History varicella-zoster glycoE [id number] 0.5 ml IM ONCE #1 ea 08/07/21 08/30/21 Rx adj(PF) 50 mcg/0.5 mL IM susp, kit atorvastatin 20 mg PO HS 08/31/21 08/31/21 History codeine-guaifenesin 10 ml PO HS PRN 08/31/21 08/31/21 History ibuprofen [Advil] 200 mg PO PRN PRN 08/31/21 08/31/21 History loratadine-pseudoephedrine 1 tab PO DAILY 08/31/21 08/30/21 History [Lorata-D] prednisone See Rx Instructions .ROUTE .COMPLEX 08/31/21 08/31/21 History Exam Narrative Exam Narrative: General: Pleasant middle-aged female who is mildly dyspneic on humidified heated high flow canula, 40L 50% FiO2, O2 sat 92%, able to complete sentences Neurological: A&Ox3, no focal deficits Psychiatric: Appropriate speech pattern/content Skin: Visible skin intact HEENT: Atraumatic, normocephalic, EOMI, MMM, clear oropharynx, no submandibular or cervical lymphadenopathy, no goiter or JVD Cardiovascular: RRR, no m/r/g Lungs: mild rales at B bases Gastrointestinal: soft, nontender, nondistended Genitourinary: deferred Extremities: trace edema BLE's, B feet are cold, +1 pedal pulses B Results Imaging Additional studies: CXR: Increased interstitial markings both lungs. Some nodular-type infiltrate evident in the left lower lobe. No pleural effusions CTA chest: 1. Negative for pulmonary arterial embolism. 2. Worsened pulmonary disease, mainly in the form of worsened diffuse subpleural lung fibrosis but with diffuse ground-glass lung opacification of uncertain etiology or significance. Findings are not felt to be associated with pulmonary edema and may represent atypical diffuse infection including viral etiologies or changes associated with worsening lung fibrosis. Clinical correlation for acute infection with appropriate testing to corroborate is recommended. 3. Acute displaced posterolateral right 10th rib fracture. EKG #1: SR, HR 93, no acute ischemia EKG #2: SR 92, byphasic-appearing T waves in lateral precoridal leads, no acute ischemia Labs Result diagrams: 08/30/21 15:25 08/30/21 15:25 Labs: Laboratory Results - last 24 hr 08/30/21 08/30/21 08/30/21 15:25 15:25 15:25 WBC 6.81 RBC 3.81 L Hgb 10.9 L Hct 32.2 L MCV 84.5 MCH 28.6 MCHC 33.9 RDW 12.8 Plt Count 144 D MPV 9.2 Immature Gran % 0.9 Neutrophils % 89.1 Lymphocytes % 4.7 Monocytes % 3.7 Eosinophils % 1.5 Basophils % 0.1 Nucleated RBC % 0 Absolute Neutrophils 6.07 Absolute Lymphocytes 0.32 L Absolute Monocytes 0.25 Absolute Eosinophils 0.10 Absolute Basophils 0.01 Sodium 129 L Potassium 2.8 L* Chloride 92 L Carbon Dioxide 29.2 Anion Gap 7.8 BUN 19 H Creatinine 0.7 Estimated GFR/1.73 m2 >= 60.00 Glucose 106 Calcium 8.4 L Magnesium 1.6 L Total Bilirubin 1.1 H AST 53 H ALT 28 Alkaline Phosphatase 53 Troponin I 0.40 H* NT-Pro-B Natriuret Pep 4372 H Total Protein 6.4 Albumin 3.1 L COVID-19 Source Nasal/Nares SARS-CoV-2 (PCR) Negative 08/30/21 08/30/21 17:32 22:00 WBC RBC Hgb Hct MCV MCH MCHC RDW Plt Count MPV Immature Gran % Neutrophils % Lymphocytes % Monocytes % Eosinophils % Basophils % Nucleated RBC % Absolute Neutrophils Absolute Lymphocytes Absolute Monocytes Absolute Eosinophils Absolute Basophils Sodium Potassium Chloride Carbon Dioxide Anion Gap BUN Creatinine Estimated GFR/1.73 m2 Glucose Calcium Magnesium Total Bilirubin AST ALT Alkaline Phosphatase Troponin I 0.39 H* 0.29 H* NT-Pro-B Natriuret Pep Total Protein Albumin COVID-19 Source SARS-CoV-2 (PCR) Last Vital Signs Temp 36.8 C 08/30/21 21:51 Pulse 103 H 08/30/21 21:45 Resp 21 08/30/21 21:51 BP 123/71 08/30/21 21:45 Pulse Ox 91 L 08/30/21 21:51
[2021-08-31] MEDS: Albuterol/Ipratropium 3 ML UPD VIAL UPD ×5 (00:31→23:06)
[2021-08-31] MEDS: Aspirin E.C. 325 MG TABEC PO (02:48)
[2021-08-31] MEDS: Levothyroxine 50 MCG TAB PO (05:47)
[2021-08-31 07:13] LABS: Abs Immature Grans 0.04 10^3/uL (0.0-0.06); Absolute Basophil Count 0.01 10^3/uL (0.0-0.2); Absolute Lymphocyte Count 0.27 10^3/uL (1.2-3.4); Absolute Monocyte Count 0.11 10^3/uL (0.1-0.8); Absolute Neutrophil Count 5.41 10^3/uL (1.2-6.7); Basophils % 0.2; HCT 33.6 % (36.0-46.0); HGB 11.3 g/dL (11.2-15.7); Immature Grans % 0.7; Lymphocytes % 4.6; MCH 28.5 pg (27.0-33.0); MCHC 33.6 % (32.0-36.0); MCV 84.6 fL (80-95); MPV 9.9 fL (8.0-11.0); Monocytes % 1.9; Neutrophils % 92.6; Nucleated RBC 0 %; Platelet Count 174 10^3/uL (130-400); RBC 3.97 10^6/uL (3.93-5.22); RDW 12.9 % (11.7-14.6); RDW-SD 39.3 fL; WBC 5.84 10^3/uL (4.4-10.8)
[2021-08-31 07:36] LABS: Anion Gap 11.2 mmol/L (3-11); BUN 23 mg/dL (7-18); CO2 25.8 mmol/L (21.0-32.0); CREATININE 0.7 mg/dL (0.55-1.02); Calcium 8.8 mg/dL (8.5-10.1); Chloride 91 mmol/L (98-107); Glucose 187 mg/dL (74-106); Potassium 3.7 mmol/L (3.5-5.1); Sodium 128 mmol/L (136-145)
[2021-08-31 07:43] LABS: Magnesium 2.3 mg/dL (1.8-2.4)
[2021-08-31 07:44] LABS: Troponin I 0.17 ng/mL (<0.06)
[2021-08-31 07:48] LABS: Calculated LDL 111 mg/dL (<100); Cholesterol 227 mg/dL (<200); HDL Cholesterol 102 mg/dL (40-60); Triglyceride 72 mg/dL (<150)
[2021-08-31] MEDS: Enoxaparin 40 MG/0.4 ML SYR SC (07:56)
[2021-08-31] MEDS: Famotidine 20 MG TAB PO (07:57)
[2021-08-31] MEDS: Atenolol 50 MG TAB PO (07:57)
[2021-08-31] MEDS: hydroCHLOROthiazide 25 MG TAB PO (07:57)
[2021-08-31] MEDS: Losartan 50 MG TAB 100 MG PO (07:58)
[2021-08-31] MEDS: Potassium Chloride 20 MEQ TABCR 40 MEQ PO (07:58)
[2021-08-31] MEDS: predniSONE 20 MG TAB 60 MG PO (07:59)
[2021-08-31] MEDS: Sodium Chloride 0.9% for Inhalation 15 ML VIAL IH (07:59)
[2021-08-31] MEDS: Sertraline 50 MG TAB PO (07:59)
[2021-08-31] MEDS: Normal Saline Flush 10 ML SYR IVP ×2 (08:00→23:58)
--- NOTE | 2021-08-31 08:00 | RT.EKG_ITS ---
APPROVED REPORT Exam: Resting ECG Reason for Exam: follow up chest pain/elevated troponin Patient Location: I HR:83 bpm ECG Measurements Heart Rate 83 AXIS AK 146 P 8 QRSd 97 QRS -26 QT 435 T -38 QTc 511 Conclusion Sinus rhythm...normal P axis, V-rate 60- 99 Left ventricular hypertrophy...multiple voltage criteria Abnormal T, consider ischemia, diffuse leads...T <-0.20mV, ant/lat/inf
[2021-08-31 08:09] LABS: Procalcitonin 0.1 ng/mL
--- NOTE | 2021-08-31 08:17 | PUCC_ITS ---
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 She had been ruled out for a PE, however her CT scans show progressive fibrotic disease in addition now to bilateral ground glass opacities. I do suspect an ILD exacerbation, however prior to initiating high dose and prolonged steroids I will rule out infection with a bronchoscopy and BAL. Her FiO2 requirements are not high enough to preclude this procudure. This was discussed in depth with the patient and she is agreeable to the plan. Given the course of this process, if it is an infection, I favor an indolent fungal etiology. If her infectious work up is negative then we will proceed with a prolonged prednisone taper. Recommendations Pulmonary: Hypoxic Respiratory Failure - continue O2 for sats >90% - continue home nebulizers bid Progressive fibrosing interstitial lung disease - continue home OFEV - I will inform the patients pulmonologust at [facility] of her admission with us Abnormal chest CT - will performed bronchoscopy with BAL today to rule out infectious etiology - patient is consented (consent in chart) - will give conscious sedation for this procedure - if BAL diff returns with either prodominantly neutrophilic of macrophagic then ok with continueing steroids - if BAL returns with lymphocytic predomenance, then discontinue steroids and await for speciation - if BAL rules out infection then recommend the following prednisone taper:60mg daily for 1 week, 50mg daily for 1 week, 40mg daily for 1 week, 30mg daily for 1 week, 20mg daily for 1 week, 10mg daily for 1 week, 5mg daily for 1 week - would recommend PJP prophylaxis but patient has Sulfa allergy listed on jace rt - would inquire as to what the reaction is as the other options are dapsone or atovaquone, each with their own set of issues. Cardiac: SVT - likely 2/2 hypoxia - continue to monitor Elevated troponin - demand in the setting of hypoxia Renal: Chronic Hyponatremia - stable from labs done at [facility] 08/03/21 I&O: Intake & Output 08/28/21 08/29/21 08/30/21 08/31/21 23:59 23:59 23:59 23:59 Intake Total 200 / 200 60 / 60 Output Total 925 / 925 Balance 200 / 200 -865 / -865 Weight 64.8 kg 64.7 kg Daily Fluid Goal:: Even to negative GI Nutrition: OK for diet after bedside swallow Infectious Disease: Concern for infection - BAL and bronchial washings for bacterial, AFB and fungal culture - Fungitell, urine histo and urine blasto, BAL PJP PCR Hematologic: Lymphopenia - suggestive of possible infectious etiology, will monitor Neurologic: No acute concerns Endocrine: No acute concerns Lines: PIV Prophylaxis: Lovenox, recommend either PPI or H2 martin while on high dose steroids Code Status: Resuscitation Status Full Code Subjective Critical and life-threatening events over the past 24 hours: This is a 61-year-old female with medical history of fibrotic ILD who is followed at [facility] pulmonary for this problem. She was last seen there August 03, 2021 in the setting of worsening respiratory symptoms. Of note she had just completed a clinical trial on open label follow-up looking at the long-term treatment plan in patients with progressive fibrosing interstitial lung disease. She has been on Ofev and stable for several years however noticed in early July worsening in her shortness of breath with exertion, palpitation and significant hypoxia while at home. 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 Her otr hazmat company driver was concerned for an acute exacerbation of her ILD versus a PE and so he repeated a high-resolution CT scan of the chest in addition to a CT scan PE protocol. Her CT PE protocol was negative for pulmonary embolism however her chest CT with no contrast did show progression of her fibrotic disease. She was started on a prednisone taper for this and presented to the emergency department after decreasing her prednisone dose per the taper. Healthy that overall her symptoms have included shortness of breath and more difficulty breathing. She has also noted more fatigue and endorses 1 low-grade fever. She denies hemoptysis. She does also endorse palpitations from time to time. During her course the pharmacy did have 1 run of SVT that was self- limiting and she did have a mild troponin elevation which is likely demand due to her hypoxia. Cardiology saw the patient this morning and also believes her troponin elevation and SVT to be a result of hypoxia. He CTPE study completed not only showed progressive fibrotic disease but also found diffuse ground glass opacities. Spirometry Date FEV1/FVC LLN FEV1 % LLN FVC % LLN Comments 07/10/21 83 65 2.00 97 1.51 2.42 85 1.94 07/31/21 87 65 1.96 95 1.51 2.25 85 1.94 Date TLC % LLN RV % DLCO LLN sGaw % Pressures 07/10/21 8.35 46% 07/31/21 7.14 39% Exam Const General: no acute distress Nutritional Appearance: well nourished [facility] Head: normocephalic Ears: external ears normal and no periauricular adenopathy General nose exam: nasal mucous membranes and turbinates normal Face and sinus: sinuses nontender Mouth: oropharynx normal and moist mucous membranes Teeth and gingiva: dentition normal Eyes General: appearance normal, both eyes and all related structures Pupils: PERRL Neck Neck: normal visual inspection and no lymphadenopathy Chest Chest: normal inspection of the chest Resp Effort & Inspection: normal respiratory effort Auscultation: rales bilaterally 2/3 way up, no rhonchi and no wheezes Cardio Rate: regular rate Rhythm: regular rhythm Heart Sounds: S1 normal, S2 normal and no murmurs Pulses: radial pulses present bilaterally GI Inspection: normal to inspection Palpation: soft Skin General skin exam: no rashes or lesions noted Neuro General: patient alert, patient awake and patient oriented x3 Extrem General: no clubbing, cyanosis or edema Psych Mental Status: mental status grossly normal Affect: normal affect Attitude: cooperative Most Recent VS/Results Last Vital Signs Temp 36.0 C L 08/31/21 05:56 Pulse 93 H 08/31/21 08:01 Resp 19 08/31/21 08:01 BP 118/72 08/31/21 08:01 Pulse Ox 92 08/31/21 08:01 Laboratory Results - last 24 hr 08/30/21 08/30/21 08/30/21 15:25 15:25 15:25 WBC 6.81 RBC 3.81 L Hgb 10.9 L Hct 32.2 L MCV 84.5 MCH 28.6 MCHC 33.9 RDW 12.8 Plt Count 144 D MPV 9.2 Immature Gran % 0.9 Neutrophils % 89.1 Lymphocytes % 4.7 Monocytes % 3.7 Eosinophils % 1.5 Basophils % 0.1 Nucleated RBC % 0 Absolute Neutrophils 6.07 Absolute Lymphocytes 0.32 L Absolute Monocytes 0.25 Absolute Eosinophils 0.10 Absolute Basophils 0.01 Sodium 129 L Potassium 2.8 L* Chloride 92 L Carbon Dioxide 29.2 Anion Gap 7.8 BUN 19 H Creatinine 0.7 Estimated GFR/1.73 m2 >= 60.00 Glucose 106 Calcium 8.4 L Magnesium 1.6 L Total Bilirubin 1.1 H AST 53 H ALT 28 Alkaline Phosphatase 53 Troponin I 0.40 H* C-Reactive Protein NT-Pro-B Natriuret Pep 4372 H Total Protein 6.4 Albumin 3.1 L Triglycerides Total Cholesterol LDL Cholesterol, Calc HDL Cholesterol Procalcitonin COVID-19 Source Nasal/Nares SARS-CoV-2 (PCR) Negative 08/30/21 08/30/21 08/31/21 17:32 22:00 06:07 WBC RBC Hgb Hct MCV MCH MCHC RDW Plt Count MPV Immature Gran % Neutrophils % Lymphocytes % Monocytes % Eosinophils % Basophils % Nucleated RBC % Absolute Neutrophils Absolute Lymphocytes Absolute Monocytes Absolute Eosinophils Absolute Basophils Sodium 128 L Potassium 3.7 D Chloride 91 L Carbon Dioxide 25.8 Anion Gap 11.2 H BUN 23 H Creatinine 0.7 Estimated GFR/1.73 m2 >= 60.00 Glucose 187 H D Calcium 8.8 Magnesium 2.3 Total Bilirubin AST ALT Alkaline Phosphatase Troponin I 0.39 H* 0.29 H* 0.17 H* C-Reactive Protein 22.50 H NT-Pro-B Natriuret Pep Total Protein Albumin Triglycerides Total Cholesterol LDL Cholesterol, Calc HDL Cholesterol Procalcitonin COVID-19 Source SARS-CoV-2 (PCR) 08/31/21 08/31/21 08/31/21 06:07 06:07 06:07 WBC 5.84 RBC 3.97 Hgb 11.3 Hct 33.6 L MCV 84.6 MCH 28.5 MCHC 33.6 RDW 12.9 Plt Count 174 MPV 9.9 Immature Gran % 0.7 Neutrophils % 92.6 Lymphocytes % 4.6 Monocytes % 1.9 Eosinophils % 0.0 Basophils % 0.2 Nucleated RBC % 0 Absolute Neutrophils 5.41 Absolute Lymphocytes 0.27 L Absolute Monocytes 0.11 Absolute Eosinophils 0.00 Absolute Basophils 0.01 Sodium Potassium Chloride Carbon Dioxide Anion Gap BUN Creatinine Estimated GFR/1.73 m2 Glucose Calcium Magnesium Total Bilirubin AST ALT Alkaline Phosphatase Troponin I C-Reactive Protein NT-Pro-B Natriuret Pep Total Protein Albumin Triglycerides 72 Total Cholesterol 227 H LDL Cholesterol, Calc 111 H HDL Cholesterol 102 Procalcitonin 0.1 COVID-19 Source SARS-CoV-2 (PCR) Review of Systems All systems reviewed & are unremarkable except as noted in HPI and below Time spent with patient Time spent in Critical Care: 120 Time spent in Critical care included: Performing procedures not included in c.c time, Coordination of care, Chart review, Documenting critically ill care, Time at immediate bedside and Discussing critically ill care with other medical staff
--- NOTE | 2021-08-31 08:39 | W.CARDCONSUL ---
Date of service: 08/31/21 Time of Service: 08:39 Assessment and Plan Assessment and plan (1) SVT (supraventricular tachycardia): Status: Resolved (2) Acute exacerbation of idiopathic pulmonary fibrosis: Status: Acute (3) Non-ST elevation HI (NSTEMI): Status: Acute Assessment and plan: Patient has evidence of a non-ST elevation myocardial infarction likely on demand ischemia due to her severe lung disease and hypoxia. An echocardiogram pending Her self-limited SVT is likely also due in part to her lung disease From a cardiac standpoint I would recommend supportive care through this hospitalization Thank you for the opportunity to participate in the care of this patient History of Present Illness History of Present Illness Chief Complaint: Shortness of breath, elevated troponin Narrative: This is a 71-year-old woman who has a history of interstitial lung disease. This was diagnosed about 5 years ago. She was doing fairly well until about a month ago when she noted a dramatic decrease in her exercise tolerance, with worsening dyspnea on exertion as well as a drop in her pulse oximetry. Prior to this time she was able to walk up to a mile on a regular basis without limitation. She saw her fire prevention forester Dr. Shepherd at [facility] where she had pulmonary function tests repeated. Showed a significant decline in the FVC and in diffusing capacity over the course of 1 month's time. She was hypoxic at rest. She had a CTA to exclude pulmonary emboli which was negative. She was felt to have acute exacerbation of her interstitial lung disease. She was given supplemental oxygen and also a course of prednisone. She started on 40 mg daily and had been gradually tapering, and was taking 10 mg at the time of her presentation here. About 2 days prior to her admission she began to have worsening shortness of breath and hypoxia. She was dyspneic even walking to the bathroom and described associated chest tightness. She called [facility] and was advised to present here to the hospital for evaluation. She has been admitted, her steroids have been increased and she is receiving supplemental oxygen. As part of her evaluation she had serial cardiac enzymes. Initial troponin was 0.4, subsequently 0.39, 0.29, and 0.17 today. Her electrocardiogram showed no significant ST elevation or depressions, though some anterior and inferior T wave inversions have been noted. She has had several self-limited runs of supraventricular tachycardia, all asymptomatic. Patient denies any significant cardiac history. She has hypertension and dyslipidemia. She had exercise testing about 25 years ago, reportedly unremarkable Consults Consult date: 08/31/21 Requesting physician: Lisa Li Review of Systems Cardiovascular Cardiovascular: Reports as per HPI, Denies edema, Denies leg edema, Denies radiating jaw, neck or arm pain, Reports dyspnea and Reports dyspnea on exertion Comments: Chest tightness Respiratory Respiratory: Reports dyspnea and Reports dyspnea on exertion [facility] Active Problem List Elevated troponin (Acute) Acute exacerbation of idiopathic pulmonary fibrosis (Acute) Rib fracture (Acute) Hypomagnesemia (Acute) Hypokalemia (Acute) Discharge planning issues (Acute) DVT prophylaxis (Acute) Acute and chronic respiratory failure with hypoxia (Acute) Hypoxia (Acute) Non-ST elevation HI (NSTEMI) (Acute) Factor V Leiden carrier (Chronic) Pulmonary fibrosis (Chronic) Medical History Cervical 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 (10/30/11) h/o LEEP 2003 Chronic low back pain Chronic respiratory failure with hypoxia Depression (06/20/15) Factor V Leiden mutation H/O cervical fibromuscular dysplasia (06/23/15) HTN (hypertension) Hyperlipidemia Hypothyroidism (acquired) Impaired fasting glucose (09/19/12) Mass of skin (12/01/12) Pulmonary fibrosis Pulmonary nodule, right 07/2021- 10 mm, with enlarged hilar lymph node- rec 3 mo f/- [facility] following Rupture of right tympanic membrane (02/07/15) due to infection, healed 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 HIRAM Zaragoza of colonoscopy S/P right knee arthroscopy Family History Mother , AGE 63 Essential hypertension Heart disease Lung cancer Hypertension Father , AGE 81 Essential hypertension Stroke Lung cancer Heart disease Hypertension Sister , AGE 63 Essential hypertension Hyperlipidemia Bladder cancer Maternal Grandfather , age 56 Essential hypertension Heart disease Stroke Hypertension Paternal Grandfather , age 59 Throat cancer Hypertension Maternal Grandmother , age 54 Diabetes Hypertension Paternal Grandmother , age 82 Stomach cancer Hypertension Maternal Aunt Breast cancer Social History Smoking/Tobacco Use Status: Former Tobacco Use Quit Date: 10/13/05 Tobacco: How many years used: 5 Second Hand Exposure: Yes (As a child) Smoking risk assessment performed?: Yes Alcohol Intake: current Alcohol Intake frequency: a few times a week Alcohol type: wine Drug use: Never Substance use type: does not use Caregiver/Support person: No Household members: none Housing: house Number of Children: 3 Communication Needs: None Education Level: college Do you need help understanding health information?: Never 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 Pets and animals: No Sexually active: No Do you think of yourself as: straight/heterosexual Current gender identity: female What is your relationship status?: How often do you talk on the phone with friends or family?: three or more times per week How often do you get together with friends or relatives?: three or more times per week How often do you attend zoroastrian or congregation services?: 4 or more times per year Do you belong to any clubs or organized social groups?: yes Panel score (0-1 are the most socially isolated patients): 3 What type of physical activity do you participate in: walking Duration: 15-30 minutes/day Frequency: daily Jayde/Jainism: Jew Special jayde needs: No Seatbelt use: always Helmet use: Yes Helmet use: always Drive intox or ride w/intox parts delivery driver: No Female Reproductive History Menstrual Menopause type: natural History History 3 Para Hx # Term Pregnancies 3 Multiple births Hx # Pregnancies Ectopic pregnancies AB induced Hx Number of Living Children AB spontaneous Exam Narrative Exam Narrative: Well-developed well-nourished looks younger than stated age no acute distress Eyes EOM: EOM intact bilaterally Neck Carotids: normal carotid upstroke and no bruits Resp Effort & Inspection: normal respiratory effort and able to speak in complete sentences Other: Crackles, no wheeze Cardio Jugular venous pressure: no JVD Palpation: normal PMI Rate: regular rate Rhythm: regular rhythm Heart Sounds: S1 normal and S2 normal Other: 1/6 to 2/6 systolic ejection quality murmur Skin Other: Warm and dry Extrem Other: No peripheral edema, superficial varicosities, intact distal pulses Results Last Vital Signs Temp 37.1 C 08/31/21 08:04 Pulse 96 H 08/31/21 08:04 Resp 19 08/31/21 08:01 BP 118/72 08/31/21 08:01 Pulse Ox 92 08/31/21 08:01 Labs Result diagrams: 08/31/21 06:07 08/31/21 06:07 Labs: Laboratory Results - last 24 hr 08/30/21 08/30/21 08/30/21 15:25 15:25 15:25 WBC 6.81 RBC 3.81 L Hgb 10.9 L Hct 32.2 L MCV 84.5 MCH 28.6 MCHC 33.9 RDW 12.8 Plt Count 144 D MPV 9.2 Immature Gran % 0.9 Neutrophils % 89.1 Lymphocytes % 4.7 Monocytes % 3.7 Eosinophils % 1.5 Basophils % 0.1 Nucleated RBC % 0 Absolute Neutrophils 6.07 Absolute Lymphocytes 0.32 L Absolute Monocytes 0.25 Absolute Eosinophils 0.10 Absolute Basophils 0.01 Sodium 129 L Potassium 2.8 L* Chloride 92 L Carbon Dioxide 29.2 Anion Gap 7.8 BUN 19 H Creatinine 0.7 Estimated GFR/1.73 m2 >= 60.00 Glucose 106 Calcium 8.4 L Magnesium 1.6 L Total Bilirubin 1.1 H AST 53 H ALT 28 Alkaline Phosphatase 53 Troponin I 0.40 H* C-Reactive Protein NT-Pro-B Natriuret Pep 4372 H Total Protein 6.4 Albumin 3.1 L Triglycerides Total Cholesterol LDL Cholesterol, Calc HDL Cholesterol Procalcitonin COVID-19 Source Nasal/Nares SARS-CoV-2 (PCR) Negative 08/30/21 08/30/21 08/31/21 17:32 22:00 06:07 WBC RBC Hgb Hct MCV MCH MCHC RDW Plt Count MPV Immature Gran % Neutrophils % Lymphocytes % Monocytes % Eosinophils % Basophils % Nucleated RBC % Absolute Neutrophils Absolute Lymphocytes Absolute Monocytes Absolute Eosinophils Absolute Basophils Sodium 128 L Potassium 3.7 D Chloride 91 L Carbon Dioxide 25.8 Anion Gap 11.2 H BUN 23 H Creatinine 0.7 Estimated GFR/1.73 m2 >= 60.00 Glucose 187 H D Calcium 8.8 Magnesium 2.3 Total Bilirubin AST ALT Alkaline Phosphatase Troponin I 0.39 H* 0.29 H* 0.17 H* C-Reactive Protein 22.50 H NT-Pro-B Natriuret Pep Total Protein Albumin Triglycerides Total Cholesterol LDL Cholesterol, Calc HDL Cholesterol Procalcitonin COVID-19 Source SARS-CoV-2 (PCR) 08/31/21 08/31/21 08/31/21 06:07 06:07 06:07 WBC 5.84 RBC 3.97 Hgb 11.3 Hct 33.6 L MCV 84.6 MCH 28.5 MCHC 33.6 RDW 12.9 Plt Count 174 MPV 9.9 Immature Gran % 0.7 Neutrophils % 92.6 Lymphocytes % 4.6 Monocytes % 1.9 Eosinophils % 0.0 Basophils % 0.2 Nucleated RBC % 0 Absolute Neutrophils 5.41 Absolute Lymphocytes 0.27 L Absolute Monocytes 0.11 Absolute Eosinophils 0.00 Absolute Basophils 0.01 Sodium Potassium Chloride Carbon Dioxide Anion Gap BUN Creatinine Estimated GFR/1.73 m2 Glucose Calcium Magnesium Total Bilirubin AST ALT Alkaline Phosphatase Troponin I C-Reactive Protein NT-Pro-B Natriuret Pep Total Protein Albumin Triglycerides 72 Total Cholesterol 227 H LDL Cholesterol, Calc 111 H HDL Cholesterol 102 Procalcitonin 0.1 COVID-19 Source SARS-CoV-2 (PCR)
--- NOTE | 2021-08-31 11:06 | W.PM.PROGNOT ---
Date of Service Date of service: 08/31/21 Time of Service: 11:07 Assessment and Plan Assessment and plan (1) Acute exacerbation of idiopathic pulmonary fibrosis: Status: Acute Assessment and plan: Patient undergo fiberoptic bronchoscopy with BAL washings to rule out any fungal component or bacterial component to her exacerbation since we will keep her on high-dose steroids. She is not febrile and she has no leukocytosis nor any elevation of procalcitonin, she has not been put on any antimicrobials. However, we should consider prophylaxis for PJP (e.g. atovaquone) (2) Acute and chronic respiratory failure with hypoxia: Status: Acute Assessment and plan: Due to above. As above. PE ruled out. (3) Elevated troponin: Status: Acute Assessment and plan: troponin I now declining. Cardiology also concurs that this was a type II ischemia brought on by hypoxemia and SVT. Echo was ordered by the mysql developer but was never completed. (4) SVT (supraventricular tachycardia): Status: Resolved Assessment and plan: self limited d/t hypoxemia. Will continue to monitor (5) Chest pain: Status: Resolved Assessment and plan: In setting of hypoxemia and SVT. No further chest pain this morning. will monitor but her troponin I is trending down and cards also does not feel that this was ACS but rather was d/t type II demand ischemia (6) Hypokalemia: Status: Acute Assessment and plan: The patient was recently initiated on HCTZ which can cause hypokalemia. Replete and recheck in am. Also, replete magnesium. Potassium now corrected to 3.7. Patient now on potassium 40 meq daily. will continue to monitor (7) Hypomagnesemia: Status: Acute Assessment and plan: Replete, recheck in am Mg++ now up to 2.3. will monitor while on diuretic therapy. (8) Rib fracture: Status: Acute Assessment and plan: Likely due to cough as the patient is denying trauma. Will check vitamin D level. (9) Discharge planning issues: Status: Acute Assessment and plan: Full code as confirmed by conversation with the patient on admission (10) DVT prophylaxis: Status: Acute Assessment and plan: Enoxaparin SC Subjective Subjective Interval history since last seen: 71-year-old female with history of pulmonary fibrosis on Ofev, chronic hypoxic respiratory failure on 2 L of oxygen at baseline, increased to 4 L with activity, patient is followed by [facility] pulmonology, Dr. Hawthorne. Patient has had worsening dyspnea for past few days w/ her oxygen levels dropping into the 70%'s. Patient has also been experiencing palpitations when her oxygen is low. Patient developed SVT last night during her evaluation in the ER and she required up to 9 LPM while in the ER but now is on HFNC at 50 L and 40% FIO2. COVID-19 swab was negative last night. She is vaccinated. Workup last night included CTA of her chest which showed no PE but worsening of her pulmonary fibrosis w/ traction bronchiectasis (however, CTA is an end-expiratory films and therefore this may make the interstitial markings look worse than they are). She also has a rib fracture of the right 9th and 10th ribs. The 9th appears old while the 10th is acute or subacute. Treatment last night included nebulizers, HFNC and an increse of her prednisone to 50 mg daily. Her troponins I went up to 0.4 but is coming down now to 0.17. This likely reflects her hypoxemia and SVT causing a type II stress ischemia response. This morning she appears to be doing better. She is sitting up in her bed talking w/ the fortune teller. I discussed her case w/ Dr. Buckley who plans to perform bronchoscopy later this morning. Patient says that she had only one elevated temperature to 100 last week. No chills or rigors and no purulent sputum production, just her usual white to clear sputum. She denies any chest pain/pressure today. Exam Narrative Exam Narrative: Older white female sitting up in her bed talking in complete paragraphs not using accessory respiratory muscles. Lungs with diffuse fine cellophane type rales no rhonchi or wheezing Heart is regular rate and rhythm Abdomen soft nontender nondistended Extremities without peripheral cyanosis or edema Objective Last Vital Signs Temp 37.1 C 08/31/21 08:04 Pulse 96 H 08/31/21 08:04 Resp 19 08/31/21 08:01 BP 118/72 08/31/21 08:01 Pulse Ox 92 08/31/21 08:01 Laboratory Results - last 24 hr 08/30/21 08/30/21 08/30/21 15:25 15:25 15:25 WBC 6.81 RBC 3.81 L Hgb 10.9 L Hct 32.2 L MCV 84.5 MCH 28.6 MCHC 33.9 RDW 12.8 Plt Count 144 D MPV 9.2 Immature Gran % 0.9 Neutrophils % 89.1 Lymphocytes % 4.7 Monocytes % 3.7 Eosinophils % 1.5 Basophils % 0.1 Nucleated RBC % 0 Absolute Neutrophils 6.07 Absolute Lymphocytes 0.32 L Absolute Monocytes 0.25 Absolute Eosinophils 0.10 Absolute Basophils 0.01 Sodium 129 L Potassium 2.8 L* Chloride 92 L Carbon Dioxide 29.2 Anion Gap 7.8 BUN 19 H Creatinine 0.7 Estimated GFR/1.73 m2 >= 60.00 Glucose 106 Calcium 8.4 L Magnesium 1.6 L Total Bilirubin 1.1 H AST 53 H ALT 28 Alkaline Phosphatase 53 Troponin I 0.40 H* C-Reactive Protein NT-Pro-B Natriuret Pep 4372 H Total Protein 6.4 Albumin 3.1 L Triglycerides Total Cholesterol LDL Cholesterol, Calc HDL Cholesterol Procalcitonin COVID-19 Source Nasal/Nares SARS-CoV-2 (PCR) Negative 08/30/21 08/30/21 08/31/21 17:32 22:00 06:07 WBC RBC Hgb Hct MCV MCH MCHC RDW Plt Count MPV Immature Gran % Neutrophils % Lymphocytes % Monocytes % Eosinophils % Basophils % Nucleated RBC % Absolute Neutrophils Absolute Lymphocytes Absolute Monocytes Absolute Eosinophils Absolute Basophils Sodium 128 L Potassium 3.7 D Chloride 91 L Carbon Dioxide 25.8 Anion Gap 11.2 H BUN 23 H Creatinine 0.7 Estimated GFR/1.73 m2 >= 60.00 Glucose 187 H D Calcium 8.8 Magnesium 2.3 Total Bilirubin AST ALT Alkaline Phosphatase Troponin I 0.39 H* 0.29 H* 0.17 H* C-Reactive Protein 22.50 H NT-Pro-B Natriuret Pep Total Protein Albumin Triglycerides Total Cholesterol LDL Cholesterol, Calc HDL Cholesterol Procalcitonin COVID-19 Source SARS-CoV-2 (PCR) 08/31/21 08/31/21 08/31/21 06:07 06:07 06:07 WBC 5.84 RBC 3.97 Hgb 11.3 Hct 33.6 L MCV 84.6 MCH 28.5 MCHC 33.6 RDW 12.9 Plt Count 174 MPV 9.9 Immature Gran % 0.7 Neutrophils % 92.6 Lymphocytes % 4.6 Monocytes % 1.9 Eosinophils % 0.0 Basophils % 0.2 Nucleated RBC % 0 Absolute Neutrophils 5.41 Absolute Lymphocytes 0.27 L Absolute Monocytes 0.11 Absolute Eosinophils 0.00 Absolute Basophils 0.01 Sodium Potassium Chloride Carbon Dioxide Anion Gap BUN Creatinine Estimated GFR/1.73 m2 Glucose Calcium Magnesium Total Bilirubin AST ALT Alkaline Phosphatase Troponin I C-Reactive Protein NT-Pro-B Natriuret Pep Total Protein Albumin Triglycerides 72 Total Cholesterol 227 H LDL Cholesterol, Calc 111 H HDL Cholesterol 102 Procalcitonin 0.1 COVID-19 Source SARS-CoV-2 (PCR)
[2021-08-31] MEDS: Lidocaine 2% Viscous 15 ML CUP (12:25)
[2021-08-31] MEDS: Midazolam 2 MG/2 ML VIAL 4 MG IVP ×2 (12:30→12:35)
[2021-08-31] MEDS: fentaNYL 100 MCG/2 ML VIAL IVP (12:32)
[2021-08-31] MEDS: Ketamine 500 MG/10 ML VIAL IVP (12:37)
--- NOTE | 2021-08-31 12:43 | INITIAL_ITS ---
- If Service Date Differs Date of service: 08/31/21 Time of Service: 12:43 Care Management Initial Assess REASON FOR HOSPITALIZATION:: Hypoxic respiratory failure, pulmonary fibrosis PAST MEDICAL HISTORY/PAST SURGICAL HISTORY:: Active Problem List. Elevated troponin (Acute). Acute exacerbation of idiopathic pulmonary fibrosis (Acute). Rib fracture (Acute). Hypomagnesemia (Acute). Hypokalemia (Acute). Discharge planning issues (Acute). DVT prophylaxis (Acute). Acute and chronic respiratory failure with hypoxia (Acute). Hypoxia (Acute). Non-ST elevation SD (NSTEMI) (Acute). 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 Pulmonary fibrosis (Chronic). Medical History. 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 h/o LEEP 2003. Chronic low back pain. Chronic respiratory failure with hypoxia. Depression (06/20/15). Factor V Leiden mutation. H/O cervical fibromuscular dysplasia (06/23/15). HTN (hypertension). Hyperlipidemia. Hypothyroidism (acquired). Impaired fasting glucose (09/19/12). Mass of skin (12/01/12). Pulmonary fibrosis. Pulmonary nodule, right. 07/2021- 10 mm, with enlarged hilar lymph node- rec 3 mo f[place] [facility] [place]. Rupture of right tympanic membrane (02/07/15). due to infection, h ealed. Varicose veins of lower extremity. right leg. Surgical History. Cervical Conization/LEEP (~2003). DR. GANDHI. Hx of colonoscopy. S/P right knee arthroscopy PREVIOUS FUNCTIONAL STATUS/SOCIAL/FAMILY SUPPORTS:: Sienna lives in her home in [facility]. She has three adult children, and two grand children. 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 CURRENT FUNCTIONAL STATUS:: Sienna was sitting up in bed when CM visited with her. She reported that she is feeling ok, although she had a bronchoscopy that did not go smoothly today. She stated that overall she is very happy with the care she is receiving at [facility]. She has been in contact with her children, keeping them updated. She stated that she sees a Associate Justice at [facility], and has home O2, which was coordinated by [facility] She stated that she is independent in the community and does not feel services are indicated at this time. CM will con tinue to follow. ADVANCE DIRECTIVES:: On file, Quinn, son, listed as agent. Axel, daughter, listed as alternate agent. Has patient been provided with info about the portal/API?: Yes Did the patient sign up for the portal?: Yes (active) CODE STATUS:: Full Code INSURANCE COVERAGE / FINANCIAL ISSUES:: MCR/ BCBS CURRENT HOME/COMMUNITY SERVICES/EQUIPMENT:: No current services or equipment. PRIMARY CARE PHYSICIAN:: Regi Helton POTENTIAL DISCHARGE NEEDS:: Follow up appointments PATIENT/FAMILY EDUCATION NEEDS:: Review discharge instructions and limitations, discussion of self care needs including ask me three. ANTICIPATED BARRIERS TO DISCHARGE:: None identified at this time. TRANSPORTATION:: Via private vehicle. PLAN:: Anticipate Sienna will return home when medically cleared. She will be driven home via private vehicle when ready. She will follow up with her PCP and discharge plan of care. CM will continue to follow.
[2021-08-31] MEDS: Lidocaine 2% Pres-Free 2 ML VIAL 1 ML IVP (12:45)
[2021-08-31] MEDS: Albuterol 2.5 MG/3 ML INH SOLN VIAL UPD ×3 (13:10→14:04)
[2021-08-31 14:33] LABS: Mononuclear Cells 70 %; Polynuclear Cells 30 %
--- NOTE | 2021-08-31 17:22 | CHAPLAIN ---
Sienna was resting in bed, waiting of have a procedure with Dr. Hallman. She shared some personal history and told me about her three adult children who all live at a distance. Sienna lives alone, but said she has a neighbor whom she can call in emergencies. She's had trouble being out of breath with while walking and that's what brought her in. She has been dealing with respiratory issues for several years, but said it is scary when health issues arise and she is by herself. She is Sabianist and usually attends [employer] in [facility]
--- NOTE | 2021-08-31 18:18 | ROE_ITS ---
Date of service: 08/31/21 Time of Service: 12:30 Operative Note Operative Note Bronchoscopy Date:08/31/21 Time:1230 Indication:New GGO - abnormal chest CT, ILD Procedure performed: Flexible bronchoscopy Sedation plan: Conscious sedation Medications used: 2mg Versed, 25mcg Fentanyl, 50mg ketamine Informed consent was obtained after the risks and benefits or the procedure were discussed. The patient?s nasal passage was numbed with 2% topical lidocaine u sing cotton swabs. A proper and complete time out was performed. The therapeutic 6.2mm Olympus bronchoscope was inserted through the right nares and the vocal cords were visualized. The vocal cords were normal in appearance, however there was visualization of laryngospasm that was not sustained. During this time the patient began coughing more and breathing shallowly. Her saturations did drop to the high 70's and so I removed the bronchoscope, sat her up and suctioned orally. She did recover from this and so the addition of a non-rebreather over the HFNC was applied. Given the desaturation, I did not give anymore sedation or cough suppression and opted to attempt the procedure again using an anterior approach and without more sedation.The bronchoscope was inserted into the airways. The trachea was midline and without injury. A full and complete airway exam was not performed due to patient intolerance of further sedation and significant coughing. The bronchoscopy was directed to the RML in order to perform a BAL. A bronchoalveolar lavage was performed in the RML. A total of 120 cc of saline was administered with a return of 15 cc. The fluid was slightly cloudy in appearance. The bronchoscope was then removed and the case terminated. The patient remained in the ICU and was in stable condition at the cessation of the case. Samples collected:RML BAL, bronchial washings Testing ordered:fungal, bacterial, AFB cultures, cell differential, PJP PCR Complications:Right nose bleed from scope trauma. Intraprocedural hypoxia with quick recovery. Lina Buckley MD Pulmonary & Critical Care Medicine
--- NOTE | 2021-08-31 20:24 | NUR.NOTE ---
Bedside bronchoscopy in ICU by Rios Guy D. Keon RN and this RN also at bedside: Pt premedicated as per order see DEC, Rx given during procedure also documented on DEC. TIME OUT COMPLETED AT 12:22, Bronchoscope IN at 12:40, O2 adjusted to maintain sat via HFO with optiflow and NRB,. Bronchoscope OUT at 12:56. Patient monitored 1:1 X 30 minutes post-procedure, Oxygen titrated down to maintain sat @ 90-92% Nursing Note:
[2021-08-31] MEDS: Atorvastatin 20 MG TAB PO (22:40)
[2021-09-01] VITALS (124 sets, daily range): BP systolic 119–141; BP diastolic 60–85; PULSE 73–115; RESP 2–35; TEMP 31–37.5; O2SAT 81–100
[2021-09-01] MEDS: Albuterol/Ipratropium 3 ML UPD VIAL UPD ×3 (04:54→18:00)
[2021-09-01] MEDS: Levothyroxine 50 MCG TAB PO (04:56)
[2021-09-01] MEDS: Docusate Sodium 100 MG CAP PO (04:56)
--- NOTE | 2021-09-01 05:41 | NUR.NOTE ---
Pt started coughing more around 0450, was due for next Duoneb at 0500 since last one was given at 2300 due to coughing. BL lungs were Wheezy with the exception on the Left base that was just course. Pt coughing up thick clear phlegm per Pt. Duoneb given, Pt still coughing some but less and HR has come down from as high as 115 to 70's. O2 during coughing went down to mid 80's even on Hi-flow but now that Douneb is done and Pt is more settled O2 is back at 97 on Hi-flow.
[2021-09-01 07:02] LABS: Abs Immature Grans 0.04 10^3/uL (0.0-0.06); Absolute Basophil Count 0.01 10^3/uL (0.0-0.2); Absolute Eosinophil Count 0.03 10^3/uL (0.0-0.7); Absolute Lymphocyte Count 0.62 10^3/uL (1.2-3.4); Absolute Monocyte Count 0.64 10^3/uL (0.1-0.8); Basophils % 0.1; Eosinophils % 0.3; HCT 30.9 % (36.0-46.0); HGB 10.3 g/dL (11.2-15.7); Immature Grans % 0.4; Lymphocytes % 6.3; MCH 29.2 pg (27.0-33.0); MCHC 33.3 % (32.0-36.0); MCV 87.5 fL (80-95); MPV 9.9 fL (8.0-11.0); Monocytes % 6.5; Neutrophils % 86.4; Nucleated RBC 0 %; Platelet Count 179 10^3/uL (130-400); RBC 3.53 10^6/uL (3.93-5.22); RDW 13.2 % (11.7-14.6); RDW-SD 41.5 fL; WBC 9.78 10^3/uL (4.4-10.8)
[2021-09-01 07:04] LABS: Absolute Neutrophil Count 8.45 10^3/uL (1.2-6.7)
[2021-09-01 07:07] LABS: Adenovirus DNA Result Negative (Negative); Metapneumovirus RNA Result Negative (Negative); Parainfluenza Type1 RNA Result Negative (Negative); Parainfluenza Type2 RNA Result Negative (Negative); Parainfluenza Type3 RNA Result Negative (Negative); Parainfluenza Type4 RNA Result Negative (Negative); Rhinovirus RNA Result Negative (Negative)
[2021-09-01 07:13] LABS: Anion Gap 7.3 mmol/L (3-11); BUN 21 mg/dL (7-18); CO2 27.7 mmol/L (21.0-32.0); CREATININE 0.7 mg/dL (0.55-1.02); Calcium 8.3 mg/dL (8.5-10.1); Chloride 94 mmol/L (98-107); Glucose 121 mg/dL (74-106); Magnesium 1.9 mg/dL (1.8-2.4); Potassium 3.9 mmol/L (3.5-5.1); Sodium 129 mmol/L (136-145)
[2021-09-01] MEDS: Sertraline 50 MG TAB PO (08:01)
[2021-09-01] MEDS: Atenolol 50 MG TAB PO (08:01)
[2021-09-01] MEDS: Enoxaparin 40 MG/0.4 ML SYR SC (08:01)
[2021-09-01] MEDS: Famotidine 20 MG TAB PO (08:02)
[2021-09-01] MEDS: predniSONE 20 MG TAB 60 MG PO (08:02)
[2021-09-01] MEDS: Potassium Chloride 20 MEQ TABCR 40 MEQ PO (08:02)
[2021-09-01] MEDS: hydroCHLOROthiazide 25 MG TAB PO (08:02)
[2021-09-01] MEDS: Losartan 50 MG TAB 100 MG PO (08:02)
[2021-09-01] MEDS: guaiFENesin/CODEINE PHOSPHATE 10 ML CUP PO ×2 (09:48→21:36)
--- NOTE | 2021-09-01 13:38 | W.PM.PROGNOT ---
Date of Service Date of service: 09/01/21 Time of Service: 13:38 Assessment and Plan Assessment and plan (1) Acute exacerbation of idiopathic pulmonary fibrosis: Status: Acute Assessment and plan: Patient underwent fiberoptic bronchoscopy with BAL washings to rule out any fungal component or bacterial component to her exacerbation since we will keep her on high-dose steroids. \ She is not febrile and she has no leukocytosis nor any elevation of procalcitonin, she has not been put on any antimicrobials. Will initiate prophylaxis for PJP (e.g. atovaquone). She has a sulfa allergy listed in her medical record and states that she apparently had some reaction as an infant that resulted in the possibility of a sulfa allergy. She believes it was a skin manifestation and she is willing to try bactrim SS daily. (2) Acute and chronic respiratory failure with hypoxia: Status: Acute Assessment and plan: Due to above. As above. PE ruled out. (3) Elevated troponin: Status: Acute Assessment and plan: troponin I now declining. Cardiology also concurs that this was a type II ischemia brought on by hypoxemia and SVT. Echo was ordered by the farm products shipper but was never completed. (4) SVT (supraventricular tachycardia): Status: Resolved Assessment and plan: self limited d/t hypoxemia. Will continue to monitor (5) Chest pain: Status: Resolved Assessment and plan: In setting of hypoxemia and SVT. No further chest pain this morning. will monitor but her troponin I is trending down and cards also does not feel that this was ACS but rather was d/t type II demand ischemia (6) Hypokalemia: Status: Acute Assessment and plan: The patient was recently initiated on HCTZ which can cause hypokalemia. Repleted and now normal. Potassium now corrected to 3.7. Patient now on potassium 40 meq daily. will continue to monitor (7) Hypomagnesemia: Status: Acute Assessment and plan: Repleted Mg++ went up to 2.3. Mg of 1.9 today. Monitor. (8) Rib fracture: Status: Acute Assessment and plan: Likely due to cough as the patient is denying trauma. Will check vitamin D level. (9) Discharge planning issues: Status: Acute Assessment and plan: Full code as confirmed by conversation with the patient on admission (10) DVT prophylaxis: Status: Acute Assessment and plan: Enoxaparin SC Subjective Subjective Patient reports: feels better, tolerating a regular diet, shortness of breath, afebrile and other (Sputum is clear. No CP, palpitations.); denies diarrhea, nausea and vomiting Interval history since last seen: Interval history since last seen: 71-year-old female with history of pulmonary fibrosis on Ofev, chronic hypoxic respiratory failure on 2 L of oxygen at baseline, increased to 4 L with activity, patient is followed by [facility] pulmonology, Dr. Hawthorne. Patient has had worsening dyspnea for past few days w/ her oxygen levels dropping into the 70%'s. Patient has also been experiencing palpitations when her oxygen is low. Patient developed SVT last night during her evaluation in the ER and she required up to 9 LPM while in the ER but now is on HFNC at 50 L and 40% FIO2. COVID-19 swab was negative last night. She is vaccinated. Workup last night included CTA of her chest which showed no PE but worsening of her pulmonary fibrosis w/ traction bronchiectasis (however, CTA is an end-expiratory films and therefore this may make the interstitial markings look worse than they are). She also has a rib fracture of the right 9th and 10th ribs. The 9th appears old while the 10th is acute or subacute. Treatment last night included nebulizers, HFNC and an increase of her prednisone to 50 mg daily. Her troponins-I went up to 0.4 but is coming down now to 0.17. This likely reflects her hypoxemia and SVT causing a type II stress ischemia response. Exam Narrative Exam Narrative: -sitting up in her bed talking in complete paragraphs not using accessory respiratory muscles. Const General: cooperative, no acute distress and other Resp Effort & Inspection: normal respiratory effort Auscultation: crackles bilaterally (Faint, in bases.) Cardio Rate: regular rate Rhythm: regular rhythm Heart Sounds: S1 normal and S2 normal GI Inspection: normal to inspection Palpation: soft and nontender Skin General skin exam: no rashes or lesions noted Extrem General: no pedal edema and no calf tenderness Objective Last Vital Signs Temp 37.5 C 09/01/21 11:28 Pulse 91 H 09/01/21 12:00 Resp 30 H 09/01/21 12:00 BP 126/76 09/01/21 12:00 Pulse Ox 93 09/01/21 12:00 Laboratory Results - last 24 hr 08/31/21 08/31/21 08/31/21 10:59 12:50 13:00 WBC RBC Hgb Hct MCV MCH MCHC RDW Plt Count MPV Immature Gran % Neutrophils % Lymphocytes % Monocytes % Eosinophils % Basophils % Nucleated RBC % Absolute Neutrophils Absolute Lymphocytes Absolute Monocytes Absolute Eosinophils Absolute Basophils Sodium Potassium Chloride Carbon Dioxide Anion Gap BUN Creatinine Estimated GFR/1.73 m2 Glucose Calcium Magnesium Fluid Source Cancelled Fluid Color Cancelled Fluid Clarity Cancelled Fluid WBC Cancelled Fld Polynuclear WBCs % Cancelled 30 Fluid Mononuclear Cell Cancelled 70 Fluid Other Cells Cancelled Adenovirus DNA Negative Human Metapneumovir RNA Negative Parainfluenza 1 (PCR) Negative Parainfluenza 2 (PCR) Negative Parainfluenza 3 (PCR) Negative Parainfluenza 4 (PCR) Negative Resp Viral Spec Desc Not Applicable Rhinovirus (PCR) Negative Path Cons Comment Cancelled Not Applicable 09/01/21 09/01/21 06:05 06:05 WBC 9.78 D RBC 3.53 L Hgb 10.3 L Hct 30.9 L MCV 87.5 MCH 29.2 MCHC 33.3 RDW 13.2 Plt Count 179 MPV 9.9 Immature Gran % 0.4 Neutrophils % 86.4 Lymphocytes % 6.3 Monocytes % 6.5 Eosinophils % 0.3 Basophils % 0.1 Nucleated RBC % 0 Absolute Neutrophils 8.45 H Absolute Lymphocytes 0.62 L Absolute Monocytes 0.64 Absolute Eosinophils 0.03 Absolute Basophils 0.01 Sodium 129 L Potassium 3.9 Chloride 94 L Carbon Dioxide 27.7 Anion Gap 7.3 BUN 21 H Creatinine 0.7 Estimated GFR/1.73 m2 >= 60.00 Glucose 121 H Calcium 8.3 L Magnesium 1.9 Fluid Source Fluid Color Fluid Clarity Fluid WBC Fld Polynuclear WBCs % Fluid Mononuclear Cell Fluid Other Cells Adenovirus DNA Human Metapneumovir RNA Parainfluenza 1 (PCR) Parainfluenza 2 (PCR) Parainfluenza 3 (PCR) Parainfluenza 4 (PCR) Resp Viral Spec Desc Rhinovirus (PCR) Path Cons Comment
[2021-09-01] MEDS: Ibuprofen 400 MG TAB PO (21:35)
[2021-09-01] MEDS: Atorvastatin 20 MG TAB PO (21:36)
[2021-09-01] MEDS: Normal Saline Flush 10 ML SYR IVP (21:37)
[2021-09-02] VITALS (83 sets, daily range): BP systolic 117–143; BP diastolic 72–92; PULSE 73–111; RESP 1–37; TEMP 31–36.6; O2SAT 78–97
[2021-09-02] MEDS: Albuterol/Ipratropium 3 ML UPD VIAL UPD ×5 (00:23→23:36)
[2021-09-02] MEDS: Levothyroxine 50 MCG TAB PO (06:08)
[2021-09-02 07:16] LABS: BUN 18 mg/dL (7-18); CREATININE 0.7 mg/dL (0.55-1.02); Calcium 8.4 mg/dL (8.5-10.1); Chloride 92 mmol/L (98-107); Glucose 104 mg/dL (74-106); Potassium 4.1 mmol/L (3.5-5.1); Sodium 125 mmol/L (136-145)
[2021-09-02] MEDS: Enoxaparin 40 MG/0.4 ML SYR SC (08:50)
[2021-09-02] MEDS: Atenolol 50 MG TAB PO (08:50)
[2021-09-02] MEDS: Famotidine 20 MG TAB PO (08:50)
[2021-09-02] MEDS: hydroCHLOROthiazide 25 MG TAB PO (08:51)
[2021-09-02] MEDS: Losartan 50 MG TAB 100 MG PO (08:51)
[2021-09-02] MEDS: Potassium Chloride 20 MEQ TABCR 40 MEQ PO (08:54)
[2021-09-02] MEDS: predniSONE 20 MG TAB 60 MG PO (08:54)
[2021-09-02] MEDS: Sertraline 50 MG TAB PO (08:54)
[2021-09-02] MEDS: Normal Saline Flush 10 ML SYR IVP ×2 (09:21→19:46)
[2021-09-02 10:46] LABS: Gram Smear Result Neutrophils Present
--- NOTE | 2021-09-02 10:57 | W.PM.PROGNOT ---
Date of Service Date of service: 09/02/21 Time of Service: 10:58 Assessment and Plan Assessment and plan (1) Acute exacerbation of idiopathic pulmonary fibrosis: Status: Acute Assessment and plan: Patient underwent fiberoptic bronchoscopy with BAL washings to rule out any fungal component or bacterial component to her exacerbation since we will keep her on high-dose steroids. \ She is not febrile and she has no leukocytosis nor any elevation of procalcitonin, she has not been put on any antimicrobials. Will initiate prophylaxis for PJP (e.g. atovaquone). She has a sulfa allergy listed in her medical record and states that she apparently had some reaction as an infant that resulted in the possibility of a sulfa allergy. She believes it was a skin manifestation and she is willing to try bactrim SS daily; initiated on 09/01 w/o incident. (2) Acute and chronic respiratory failure with hypoxia: Status: Acute Assessment and plan: Due to above. As above. PE ruled out. (3) Elevated troponin: Status: Acute Assessment and plan: troponin I now declining. Cardiology also concurs that this was a type II ischemia brought on by hypoxemia and SVT. Echo was ordered by the labor relations manager but was never completed. (4) SVT (supraventricular tachycardia): Status: Resolved Assessment and plan: HR overnight in the 70-80's range. With sitting up and ambulating to commode; increases to 110's to 120's. No CP. (5) Chest pain: Status: Resolved Assessment and plan: In setting of hypoxemia and SVT. No further chest pain. Troponin I decreased to 0.17 from high of 0.4. Cardiology also does not feel that this was ACS but rather was d/t type II demand ischemia (6) Hypokalemia: Status: Acute Assessment and plan: The patient was recently initiated on HCTZ which can cause hypokalemia. Repleted and now normal. Potassium now corrected to 3.7. Patient now on potassium 40 meq daily. will continue to monitor (7) Hypomagnesemia: Status: Acute Assessment and plan: Repleted Mg++ went up to 2.3. Mg of 1.9 today. Monitor. (8) Rib fracture: Status: Acute Assessment and plan: Likely due to cough as the patient is denying trauma. Vitamin D level pending. (9) Discharge planning issues: Status: Acute Assessment and plan: Full code as confirmed by conversation with the patient on admission (10) DVT prophylaxis: Status: Acute Assessment and plan: Enoxaparin SC (11) Hyponatremia: Status: Acute Assessment and plan: Na 125 today; 128-129 since admission. No confusion. Subjective Subjective Patient reports: no new complaints, tolerating a regular diet and afebrile; denies diarrhea, nausea and vomiting Exam Narrative Exam Narrative: -sitting up in her bed talking in complete paragraphs not using accessory respiratory muscles. Const General: cooperative, no acute distress and other Resp Effort & Inspection: normal respiratory effort Auscultation: crackles bilaterally (Faint, in bases.) Cardio Rate: regular rate Rhythm: regular rhythm Heart Sounds: S1 normal and S2 normal GI Inspection: normal to inspection Palpation: soft and nontender Skin General skin exam: no rashes or lesions noted Extrem General: no pedal edema and no calf tenderness Objective Last Vital Signs Temp 36.6 C 09/02/21 10:56 Pulse 94 H 09/02/21 10:56 Resp 24 09/02/21 10:56 BP 129/78 09/02/21 10:56 Pulse Ox 88 L 09/02/21 10:56 Laboratory Results - last 24 hr 09/02/21 06:50 Sodium 125 L Potassium 4.1 Chloride 92 L Carbon Dioxide 26.0 Anion Gap 7.0 BUN 18 Creatinine 0.7 Estimated GFR/1.73 m2 >= 60.00 Glucose 104 Calcium 8.4 L PAWSS Have you Been Recently Intoxicated or Drunk Within the Last 30 days?: No Have you Ever Experienced Previous Episodes of Alcohol Withdrawal?: No Have you ever Experienced Withdrawal Seizures?: No Have you ever Experienced Delirium Tremens(DT)s?: No Have you ever undergone Alcohol Rehabilitation Treatment (i.e, inpt ot outpatient treatment programs)?: No Have you ever Experienced Blackouts?: No Have you ever Combined Alcohol with other Downers within the last 90 days?: No Have you ever Combined Alcohol with any other Substance of Abuse during the last 90 days?: No Positive Blood Alcohol level on Presentation? [PCS.BAL]: No Evidence of Increased Autonomic Activity (i.e. HR>120, tremor, sweating, agitation, nausea)?: No Result: 0
--- NOTE | 2021-09-02 11:15 | PHA.REVIEW ---
Pharmacy Admission Review - Admission Clinical Review (Last Reviewed 08/31/21 @ 08:45 by Sienna Wong MD) Hyponatremia (Acute) Abnormal CT of the chest (Acute) Elevated troponin (Acute) Acute exacerbation of idiopathic pulmonary fibrosis (Acute) Rib fracture (Acute) Hypomagnesemia (Acute) Hypokalemia (Acute) Discharge planning issues (Acute) DVT prophylaxis (Acute) Acute and chronic respiratory failure with hypoxia (Acute) Hypoxia (Acute) Non-ST elevation WA (NSTEMI) (Acute) Sulfa (Sulfonamide Antibiotics) Allergy (Unknown, Verified 08/30/21 13:50) Resuscitation Status Full Code Height 5 ft 3 in Weight 65.5 kg - Renal Dosing Renal Dosing: BUN 18 mg/dL (7-18) 09/02/21 06:50 Creatinine 0.7 mg/dL (0.55-1.02) 09/02/21 06:50 Medications needing adjustments: Reviewed (crcl ~56ml/min) - Anticoagulation Anticoagulation: Hgb 10.3 g/dL (11.2-15.7) L 09/01/21 06:05 Hct 30.9 % (36.0-46.0) L 09/01/21 06:05 Plt Count 179 10^3/uL (130-400) 09/01/21 06:05 Creatinine 0.7 mg/dL (0.55-1.02) 09/02/21 06:50 DVT Prophylaxis: Reviewed Medications: Enoxaparin Therapeutic Anticoagulation: N/A - Relevant Labs Sodium 125 mmol/L (136-145) L 09/02/21 06:50 Potassium 4.1 mmol/L (3.5-5.1) 09/02/21 06:50 Chloride 92 mmol/L (98-107) L 09/02/21 06:50 Magnesium 1.9 mg/dL (1.8-2.4) 09/01/21 06:05 C-Reactive Protein 22.50 mg/dL (0.0-0.3) H 08/31/21 06:07 Electrolytes, C-Reactive P, ESR: Reviewed - DM Control DM Control: Glucose 104 mg/dL (74-106) 09/02/21 06:50 Insulin Dosing: N/A - Heart Failure/WA Heart Failure/WA: Troponin I 0.17 ng/mL (<0.06) H* 08/31/21 06:07 NT-Pro-B Natriuret Pep 4372 pg/mL (<300) H 08/30/21 15:25 - BP Control BP Control: Blood Pressure [Left Arm] 117/76 Blood Pressure [Left Arm] 125/76 Blood Pressure [Left Arm] 141/85 Blood Pressure 129/78 Blood Pressure 117/76 Blood Pressure 121/91 Blood Pressure 125/76 Blood Pressure 128/76 Blood Pressure 141/85 - Qtc Review If Elevated: Reviewed (511) - IV to PO Switch IV Medications: N/A - Home Meds Home Med List reviewed: Reviewed - Current meds Current Medication Order Review: Reviewed (started bactrim SS daily for PJP prophylaxis.)
[2021-09-02 12:54] LABS: Fungitell Qualitative Negative (Negative); Fungitell Quantitative Value <31 pg/mL (<60 pg/mL)
[2021-09-02] MEDS: guaiFENesin/CODEINE PHOSPHATE 10 ML CUP PO (19:46)
[2021-09-02] MEDS: Atorvastatin 20 MG TAB PO (19:46)
[2021-09-03] VITALS (67 sets, daily range): BP systolic 121–147; BP diastolic 65–91; PULSE 75–102; RESP 2–34; TEMP 31–37.2; O2SAT 82–98
--- NOTE | 2021-09-03 | DI.RAD_ITS ---
Exam(s) XR PORTABLE CHEST AP EXAM: XR PORTABLE CHEST AP CLINICAL HISTORY: f/u infiltrates, hypoxia TECHNIQUE: 2D digital imaging was performed. COMPARISON: CR CHEST 2 VIEWS PA,LAT from 12/08/2015 CR CHEST 2 VIEWS PA,LAT from 12/08/2015 CR,XR XR PORTABLE CHEST AP from 08/30/2021 CR,XR XR PORTABLE CHEST AP from 08/30/[address] CHEST PE CTA from 08/30/[address] CHEST PE CTA from 08/30/2021 FINDINGS: Low lung volumes. Underlying fibrotic changes. No change bilateral infiltrates. No effusions. Hea rt size normal. IMPRESSION: No change in bilateral infiltrates and interstitial fibrosis. DATA REPOSITORY: RADIATION DOSE DELIVERED:
[2021-09-03 02:56] LABS: Vitamin D 25 Total 14.8 ng/mL (30-100)
[2021-09-03] MEDS: Levothyroxine 50 MCG TAB PO (06:23)
[2021-09-03] MEDS: Albuterol/Ipratropium 3 ML UPD VIAL UPD ×4 (06:23→23:49)
[2021-09-03 06:59] LABS: HCT 34.3 % (36.0-46.0); HGB 11.5 g/dL (11.2-15.7); MCH 28.6 pg (27.0-33.0); MCHC 33.5 % (32.0-36.0); MCV 85.3 fL (80-95); MPV 9.4 fL (8.0-11.0); Platelet Count 205 10^3/uL (130-400); RBC 4.02 10^6/uL (3.93-5.22); RDW 12.7 % (11.7-14.6); RDW-SD 39.1 fL; WBC 7.44 10^3/uL (4.4-10.8)
[2021-09-03 07:33] LABS: Anion Gap 4.6 mmol/L (3-11); BUN 17 mg/dL (7-18); CO2 28.4 mmol/L (21.0-32.0); CREATININE 0.7 mg/dL (0.55-1.02); Calcium 8.6 mg/dL (8.5-10.1); Chloride 91 mmol/L (98-107); Glucose 104 mg/dL (74-106)
[2021-09-03 07:45] LABS: Sodium 124 mmol/L (136-145)
--- NOTE | 2021-09-03 08:37 | PUCC_ITS ---
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 She had been ruled out for a PE, however her CT scans show progressive fibrotic disease in addition now to bilateral ground glass opacities. I suspected an ILD flare however given the appearance of her CAT scan and subacute nature there was a reasonable possibility that this could be an infectious etiology. I performed a bronchoscopy with a BAL of the right middle lobe that has been negative for infectious work-up thus far. Additionally the cell differential on the BAL was completely normal. Given these results it is safe to continue with high-dose steroids as treatment of an ILD flare. Some of the work-up is still pending however it is unlikely for these to be positive given the cell differential seen on the BAL. She is symptomatically improving although is still on high flow nasal cannula today. We will try to wean her to an Oxymizer and see how she does with ambulation. Recommendations Pulmonary: Hypoxic Respiratory Failure - continue O2 for sats >90% - hold hypertonic saline nebs given wheezing - start Symbicort bid for wheezing - continue albuterol nebs as needed - she should be discharged with these as well - incentive spirometry and Acapella (VibraPEP) - OOB to chair - recommend diuresis ILD flare - continue home OFEV - she wished to switch her care from [facility] to [facility] for her pulmonary needs - recommend the following prednisone taper:60mg daily for 1 week, 50mg daily for 1 week, 40mg daily for 1 week, 30mg daily for 1 week, 20mg daily for 1 week, 10mg daily for 1 week, 5mg daily for 1 week - continue PJP ppx until patient prednisone dose is below 20mg Cardiac: SVT - likely 2/2 hypoxia - continue to monitor Elevated troponin - demand in the setting of hypoxia Renal: Chronic Hyponatremia - stable from labs done at [facility] 08/03/21 - recommend stopping HCTZ - would recommend giving lasix instead I&O: Intake & Output 08/31/21 09/01/21 09/02/21 09/03/21 23:59 23:59 23:59 23:59 Intake Total 2009 750 / 750 1490 / 1490 240 / 240 Output Total 1735 / 1735 1500 / 1500 1800 / 1800 325 / 325 Balance 275 / 275 -750 / -750 -310 / -310 -85 / -85 Weight 64.7 kg 61.6 kg 65.5 kg 64.9 kg Daily Fluid Goal:: negative 1-2L in 24 hour period GI Nutrition: PO diet is ok Date of Last Bowel Movement: 09/02/21 Infectious Disease: Infection ruled out with bronchoscopy BAL Hematologic: No acute concerns Neurologic: No acute concerns Endocrine: No acute concerns Lines: PIV Prophylaxis: famotidine (onsteroids) Lovenox Code Status: Resuscitation Status Full Code Subjective Critical and life-threatening events over the past 24 hours: Sienna is doing well today. She is still coughing and having some tightness in her chest that is improved with albuterol nebulizers. She had a good weekend but is still desatura ting with movement. She has not had any further nose bleeds. Exam Const General: no acute distress Nutritional Appearance: well nourished [facility] Head: normocephalic Ears: external ears normal and no periauricular adenopathy General nose exam: nasal mucous membranes and turbinates normal Face and sinus: sinuses nontender Mouth: oropharynx normal and moist mucous membranes Teeth and gingiva: dentition normal Eyes General: appearance normal, both eyes and all related structures Pupils: PERRL Neck Neck: normal visual inspection and no lymphadenopathy Chest Chest: normal inspection of the chest Resp Effort & Inspection: normal respiratory effort Auscultation: rales bilaterally 1/[address] way up, no rhonchi and wheezes scattered wheezes Cardio Rate: regular rate Rhythm: regular rhythm Heart Sounds: S1 normal, S2 normal and no murmurs Pulses: radial pulses present bilaterally GI Inspection: normal to inspection Palpation: soft Skin General skin exam: no rashes or lesions noted Neuro General: patient alert, patient awake and patient oriented x3 Extrem General: no clubbing, cyanosis or edema Psych Mental Status: mental status grossly normal Affect: normal affect Attitude: cooperative Most Recent VS/Results Last Vital Signs Temp 36.6 C 09/03/21 03:33 Pulse 79 09/03/21 02:00 Resp 25 H 09/03/21 03:30 BP 131/81 09/03/21 02:00 Pulse Ox 96 09/03/21 03:30 Laboratory Results - last 24 hr 08/31/21 08/31/21 08/31/21 06:07 12:05 13:00 WBC RBC Hgb Hct MCV MCH MCHC RDW Plt Count MPV Sodium Potassium Chloride Carbon Dioxide Anion Gap BUN Creatinine Estimated GFR/1.73 m2 Glucose Calcium 25-OH Vitamin D Total 14.8 L Gram Stain Neutrophils Present A Aerobic Culture SEE BELOW B-(1,3)-D-Glucan Quant <31 B-(1,3)-D-Glucan Qual Negative Ref Test Specimen Type Not Applicable Ref Report Verification Not Applicable 08/31/21 09/03/21 09/03/21 13:00 06:00 06:00 WBC 7.44 RBC 4.02 Hgb 11.5 Hct 34.3 L MCV 85.3 MCH 28.6 MCHC 33.5 RDW 12.7 Plt Count 205 MPV 9.4 Sodium 124 L Potassium 4.0 Chloride 91 L Carbon Dioxide 28.4 Anion Gap 4.6 BUN 17 Creatinine 0.7 Estimated GFR/1.73 m2 >= 60.00 Glucose 104 Calcium 8.6 25-OH Vitamin D Total Gram Stain SEE BELOW A Aerobic Culture SEE BELOW B-(1,3)-D-Glucan Quant B-(1,3)-D-Glucan Qual Ref Test Specimen Type Not Applicable Ref Report Verification Not Applicable Review of Systems All systems reviewed & are unremarkable except as noted in HPI and below Time spent with patient Time spent in Critical Care: 35 Time spent in Critical care included: Chart review, Documenting critically ill care, Time at immediate bedside and Discussing critically ill care with other medical staff
[2021-09-03] MEDS: Potassium Chloride 20 MEQ TABCR 40 MEQ PO (08:45)
[2021-09-03] MEDS: predniSONE 20 MG TAB 60 MG PO (08:45)
[2021-09-03] MEDS: Sertraline 50 MG TAB PO (08:46)
[2021-09-03] MEDS: Normal Saline Flush 10 ML SYR IVP ×2 (08:47→19:58)
[2021-09-03] MEDS: Famotidine 20 MG TAB PO (08:47)
[2021-09-03] MEDS: Losartan 50 MG TAB 100 MG PO (08:47)
[2021-09-03] MEDS: Atenolol 50 MG TAB PO (08:47)
[2021-09-03] MEDS: Enoxaparin 40 MG/0.4 ML SYR SC (08:47)
--- NOTE | 2021-09-03 09:00 | NUR.NOTE ---
Call received from pulmonary clinic for f/u jesse: On Friday at 3 PM or 15:00. letter to be sent to pt via mail.Nursing Note:
[2021-09-03] MEDS: Budesonide/Formoterol 160/4.5 6 GM 60 PUFF INH IH ×2 (09:30→19:56)
--- NOTE | 2021-09-03 09:43 | DI.US_ITS ---
APPROVED REPORT EXAM: Comprehensive 2D, Doppler, and color-flow Echocardiogram Patient Location: In-Patient Room/Bed: [id number] Photo Print Specialist: Sally Bobo RDCS (AE) Indications: NSTEMI, SVT Other Information Study Quality: Adequate Conclusion Normal left ventricular wall thickness and chamber size. Estimated ejection fraction is 55 to 60%. Wall motion is normal The right ventricle is not well visualized, unable to assess right ventricular function Both atria are normal in size The aortic valve is sclerotic and trileaflet without stenosis or regurgitation Mild mitral annular calcification. Trace to mild mitral regurgitation Normal tricuspid valve with trace to mild regurgitation. Estimated right ventricular systolic pressu re is 37 mmHg Mildly dilated ascending aorta Wall motion Left Ventricle The left ventricle is normal size. Left ventricular systolic function is borderline. There is normal left ventricular wall thickness. Left ventricular filling pattern is normal for age. Transmitral Dopp ler flow pattern suggests impaired LV relaxation. Transmitral Doppler flow pattern suggests pseudonor malization. There is no ventricular septal defect visualized. LVEF is 55-60%. Right Ventricle Right ventricle is not well visualized. Right ventricular systolic function could not be assessed. Th e RVSP is 36.9 mmHg. Atria The left atrium size is normal. The right atrium size is normal. The interatrial septum is intact wit h no evidence for an atrial septal defect. Atrial septal aneurysm is present. Aortic Valve The Aortic valve is sclerotic. Aortic valve is trileaflet. There is no aortic valvular stenosis. No a ortic regurgitation is present. Mitral Valve Mild mitral annular calcification. No evidence of mitral valve stenosis. Trace to mild mitral regurgi tation. Tricuspid Valve The tricuspid valve is normal in structure. There is no tricuspid valve stenosis. Trace to mild tricu spid regurgitation. Pulmonic Valve The pulmonary valve is normal in structure. There is no pulmonic valvular stenosis. There is no pulmo idalia valvular regurgitation. Great Vessels The aortic root is normal in size. The ascending aorta is mildly dilated. Aortic arch is normal in ca liber. IVC is normal in size and collapses >50% with inspiration. Pericardium There is no pericardial effusion. 2D Dimensions IVSD d PLAX 0.95 cm F: 0.6-1.0 LV Vol A2C d MOD 62.0 mL LVPW d PLAX 0.98 cm F: 0.6 - 1.0 LV Vol A4C d MOD 100.7 mL LVID d PLAX 4.11 cm F: 3.8 - 5.2 LA vol/ BSA A2C s A-L 18.2 mL/m2 LVDs 2.95 cm F: 2.2 - 3.5 LA vol/ BSA A4C s A-L 30.4 mL/m2 Ao Root d 2.98 cm F: 2.7 - 3.3 LA Vol/ BSA Biplane s A-L 23.6 mL/m2 RA Area A4C 13.14 cm2 LA Area A4C s MOD 16.68 cm2 RA Vol/ BSA A4C s A-L 18.1 mL/m2 LA Area A2C s MOD 12.87 cm2 Ao Asc Diam d 3.51 cm F: 2.3 - 3.1 LV EF A4C MOD 55.2 % LV EF Teichholz 54.8 % LV EF A2C MOD 55.7 % LVEF (Santizo's) 52.23 % F: 54 - 74 LV EF Biplane MOD 52.2 % LV Volume 62.98 mL F: 46 - 106 SV 41.26 mL LV Volume Index 37.48 mL/m2 F: 29 - 61 SV Index 24.53 mL/m2 LV Vol Biplane MOD 79.0 mL FS 28.05 % M-Mode TAPSE 1.56 cm (M/F) >1.7 LV Diastology MV E' medial 0.052 (>0.07 m/s) E/A Ratio 0.6 LV E/e MED 8.40 (<14) MV E Vmax 0.44 (0.4-1.3 m/s) MV E' lateral 0.052 (>0.1 m/s) MV A Vmax 0.80 (0.4-1.3 m/s) LV E/e LAT 8.40 (<14) MV E/A Ratio 0.54 MV E/E' medial 8.43 MV E/E' lateral 8.43 Aortic Valve LVOT Area 3.17 cm2 AoV Area Vmax 3.00 cm2 LVOT Vmax 0.99 m/s AoV Area/ BSA (Vmax) 1.79 cm2/m2 LVOT Mean Severiano. 0.64 m/s TONA Mean Severiano. 2.64 cm2 LVOT Peak Grad 3.9 mmHg TONA Mean Severiano. Index 1.57 cm2/m2 LVOT Mean Grad 1.9 mmHg LVOT VTI 0.191 m LVOT Diam s 2.00 cm AoV Vmax 1.04 m/s Velocity Ratio 0.95 AoV Mean Severiano. 0.77 m/s AoV Peak Grad 4.4 mmHg LVOT SV 60.73 mL AoV Mean Grad 2.6 mmHg AoV VTI 0.160 m AoV Area VTI 3.80 cm2 AoV Area/ BSA (VTI) 2.26 cm/m2 Mitral Valve MV DT 311 (160-240 msec) MV PHT 90 msec MV Area PHT 2.44 cm2 MV VTI 0.172 m MV Area VTI 3.53 (4.0-6.0 cm2) Tricuspid Valve TR Peak Grad 33.8 mmHg TR Vmax 2.91 m/s RA Pressure 3.00 mmHg RVSP (TR) 36.9 mmHg
[2021-09-03] MEDS: guaiFENesin 600 MG TABCR PO ×2 (12:12→19:58)
--- NOTE | 2021-09-03 12:15 | W.NUTRFU ---
Date of service: 09/03/21 Time of Service: 12:15 Nutrition Note NOTE: Ms. Ramirez has good PO intake on heart healthy eating diet. Her BMI is 25.3 kg/m2 which is WNL. Looking back at weights historically, her weight is entirely stable. No nutritional issues noted at this time. Will continue to follow. Time Spent in Nutritional Counseling and Treatment: 0
--- NOTE | 2021-09-03 13:38 | W.PM.PROGNOT ---
Date of Service Date of service: 09/03/21 Time of Service: 13:38 Assessment and Plan Assessment and plan (1) Acute exacerbation of idiopathic pulmonary fibrosis: Status: Acute Assessment and plan: Patient underwent fiberoptic bronchoscopy with BAL washings to rule out any fungal component or bacterial component to her exacerbation since we will keep her on high-dose steroids. \ She is not febrile and she has no leukocytosis nor any elevation of procalcitonin, she has not been put on any antimicrobials. Will initiate prophylaxis for PJP (e.g. atovaquone). She has a sulfa allergy listed in her medical record and states that she apparently had some reaction as an infant that resulted in the possibility of a sulfa allergy. She believes it was a skin manifestation and she is willing to try bactrim SS daily; initiated on 09/01 w/o incident. (2) Acute and chronic respiratory failure with hypoxia: Status: Acute Assessment and plan: Due to above. As above. PE ruled out. (3) Elevated troponin: Status: Acute Assessment and plan: troponin I now declining. Cardiology also concurs that this was a type II ischemia brought on by hypoxemia and SVT. Echo was ordered by the temperature inspector but was never completed. (4) SVT (supraventricular tachycardia): Status: Resolved Assessment and plan: HR overnight in the 70-80's range. With sitting up and ambulating to commode; increases to 110's to 120's. No CP. (5) Chest pain: Status: Resolved Assessment and plan: In setting of hypoxemia and SVT. No further chest pain. Troponin I decreased to 0.17 from high of 0.4. Cardiology also does not feel that this was ACS but rather was d/t type II demand ischemia (6) Hypokalemia: Status: Acute Assessment and plan: The patient was recently initiated on HCTZ which can cause hypokalemia. Repleted and now normal. Potassium now corrected to 3.7. Patient now on potassium 40 meq daily. will continue to monitor (7) Hypomagnesemia: Status: Acute Assessment and plan: Repleted Mg++ went up to 2.3. Mg of 1.9 today. Monitor. (8) Rib fracture: Status: Acute Assessment and plan: Likely due to cough as the patient is denying trauma. Vitamin D level pending. (9) Discharge planning issues: Status: Acute Assessment and plan: Full code as confirmed by conversation with the patient on admission (10) DVT prophylaxis: Status: Acute Assessment and plan: Enoxaparin SC (11) Hyponatremia: Status: Acute Assessment and plan: Na 125 today; 128-129 since admission. No confusion. Subjective Subjective Patient reports: no new complaints, feels better, tolerating a regular diet, shortness of breath (With activity) and afebrile; denies diarrhea, nausea and vomiting Exam Narrative Exam Narrative: -sitting up in her bed talking in complete paragraphs not using accessory respiratory muscles. Const General: cooperative, no acute distress and other Resp Effort & Inspection: normal respiratory effort Auscultation: crackles bilaterally (Faint, in bases.) Cardio Rate: regular rate Rhythm: regular rhythm Heart Sounds: S1 normal and S2 normal GI Inspection: normal to inspection Palpation: soft and nontender Skin General skin exam: no rashes or lesions noted Extrem General: no pedal edema and no calf tenderness Objective Last Vital Signs Temp 37.0 C 09/03/21 07:30 Pulse 92 H 09/03/21 12:08 Resp 28 H 09/03/21 12:08 BP 127/76 09/03/21 12:08 Pulse Ox 86 L 09/03/21 12:08 Laboratory Results - last 24 hr 08/31/21 08/31/21 08/31/21 06:07 12:05 13:00 WBC RBC Hgb Hct MCV MCH MCHC RDW Plt Count MPV Sodium Potassium Chloride Carbon Dioxide Anion Gap BUN Creatinine Estimated GFR/1.73 m2 Glucose Calcium 25-OH Vitamin D Total 14.8 L Gram Stain Neutrophils Present A Aerobic Culture SEE BELOW B-(1,3)-D-Glucan Quant <31 B-(1,3)-D-Glucan Qual Negative Ref Test Specimen Type Not Applicable Ref Report Verification Not Applicable 08/31/21 09/03/21 09/03/21 13:00 06:00 06:00 WBC 7.44 RBC 4.02 Hgb 11.5 Hct 34.3 L MCV 85.3 MCH 28.6 MCHC 33.5 RDW 12.7 Plt Count 205 MPV 9.4 Sodium 124 L Potassium 4.0 Chloride 91 L Carbon Dioxide 28.4 Anion Gap 4.6 BUN 17 Creatinine 0.7 Estimated GFR/1.73 m2 >= 60.00 Glucose 104 Calcium 8.6 25-OH Vitamin D Total Gram Stain SEE BELOW A Aerobic Culture SEE BELOW B-(1,3)-D-Glucan Quant B-(1,3)-D-Glucan Qual Ref Test Specimen Type Not Applicable Ref Report Verification Not Applicable PAWSS Have you Been Recently Intoxicated or Drunk Within the Last 30 days?: No Have you Ever Experienced Previous Episodes of Alcohol Withdrawal?: No Have you ever Experienced Withdrawal Seizures?: No Have you ever Experienced Delirium Tremens(DT)s?: No Have you ever undergone Alcohol Rehabilitation Treatment (i.e, inpt ot outpatient treatment programs)?: No Have you ever Experienced Blackouts?: No Have you ever Combined Alcohol with other Downers within the last 90 days?: No Have you ever Combined Alcohol with any other Substance of Abuse during the last 90 days?: No Positive Blood Alcohol level on Presentation? [PCS.BAL]: No Evidence of Increased Autonomic Activity (i.e. HR>120, tremor, sweating, agitation, nausea)?: No Result: 0
[2021-09-03] MEDS: Benzonatate 100 MG CAP PO ×2 (14:01→19:58)
--- NOTE | 2021-09-03 18:54 | CMPROGNOTE_ITS ---
- If Service Date Differs Date of service: 09/03/21 Time of Service: 18:54 Care Management Progress Note S/O: Per report, Sienna continues to require hospitalization, as she is still desaturating with movement, and her oxygen needs are higher than her baseline. Sienna reports that she is still coughing and has had tightness in her chest, but that it has improved with albuterol nebulizers. CM met with Sienna and two of her adult children over the weekend, who are very supportive. She plans to stay with her son, Quinn, who lives in [place] and is an RN, for a short time post hospitalization. CM provided Sienna with a coloring book and word search, which she was appreciative of. CM will continue to follow. A: Sienna is a 71 year old female admitted to [facility] on 08/30/21 for hypoxic respiratory failure, pulmonary fibrosis. P: Anticipate Sienna will go to her son's home to recover once she is medically cleared. She will be driven home by her son, Quinn. She will require an O2 tank for travel, which CM asked RT to attend to. She will follow up with her PCP and discharge plan of care. CM will continue to follow.
[2021-09-03] MEDS: Atorvastatin 20 MG TAB PO (19:58)
[2021-09-03] MEDS: guaiFENesin/CODEINE PHOSPHATE 10 ML CUP PO (21:35)
[2021-09-04] VITALS (59 sets, daily range): BP systolic 97–136; BP diastolic 72–87; PULSE 76–113; RESP 1–37; TEMP 36.4–37.4; O2SAT 75–99
[2021-09-04] MEDS: Levothyroxine 50 MCG TAB PO (05:36)
[2021-09-04] MEDS: Albuterol/Ipratropium 3 ML UPD VIAL UPD ×4 (05:51→19:58)
[2021-09-04 06:27] LABS: Anion Gap 5.3 mmol/L (3-11); BUN 17 mg/dL (7-18); CO2 29.7 mmol/L (21.0-32.0); CREATININE 0.7 mg/dL (0.55-1.02); Calcium 8.9 mg/dL (8.5-10.1); Chloride 91 mmol/L (98-107); Glucose 98 mg/dL (74-106); Potassium 4.9 mmol/L (3.5-5.1); Sodium 126 mmol/L (136-145)
--- NOTE | 2021-09-04 08:12 | W.PULMCC ---
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 She had been ruled out for a PE, however her CT scans show progressive fibrotic disease in addition now to bilateral ground glass opacities. I suspected an ILD flare however given the appearance of her CAT scan and subacute nature there was a reasonable possibility that this could be an infectious etiology. I performed a bronchoscopy with a BAL of the right middle lobe that has been negative for infectious work-up thus far. Additionally the cell differential on the BAL was completely normal. Given these results it is safe to continue with high-dose steroids as treatment of an ILD flare. She continues to make slow progress but was able to tolerate oxymizer overnight. She still has significant desaturations during coughing fits. Recommendations Pulmonary: Hypoxic Respiratory Failure - continue O2 for sats >90% - hold hypertonic saline nebs for now - continue Symbicort bid - continue albuterol nebs 4 times a day - incentive spirometry and Acapella (VibraPEP) - OOB to chair - recommend diuresis ILD flare - continue home OFEV - will treat cough more aggressively with codeine cough syrup to try and prevent the significant desaturations during her coughing fits. - she wished to switch her care from [facility] to [facility] for her pulmonary needs - recommend the following prednisone taper:60mg daily for 1 week, 50mg daily for 1 week, 40mg daily for 1 week, 30mg daily for 1 week, 20mg daily for 1 week, 10mg daily for 1 week, 5mg daily for 1 week - continue PJP ppx until patient prednisone dose is below 20mg Cardiac: SVT - likely 2/2 hypoxia - continue to monitor Elevated troponin - demand in the setting of hypoxia Renal: Subacute Hyponatremia - stable from labs done at [facility] 08/03/21 - recommend stopping HCTZ - starting Lasix PO 20mg bid I&O: Intake & Output 09/01/21 09/02/21 09/03/21 09/04/21 23:59 23:59 23:59 23:59 Intake Total 750 / 750 1490 / 1490 850 / 850 10 Output Total 1500 / 1500 1800 / 1800 1100 / 1100 350 / 350 Balance -750 / -750 -310 / -310 -250 / -250 -340 / -340 Weight 61.6 kg 65.5 kg 64.9 kg 64.3 kg Daily Fluid Goal:: Negative 1-2 L in 24 hours GI Nutrition: PO diet ok Date of Last Bowel Movement: 09/02/21 Infectious Disease: No acute concerns Hematologic: No acute concerns Neurologic: No acute concerns Endocrine: No acute concerns Lines: PIV Prophylaxis: famotidine and lovenox Code Status: Resuscitation Status Full Code Subjective Critical and life-threatening events over the past 24 hours: She is feeling ok today. She remained on oxymizer overnight. Her sats remain stable, but when she starts coughing they drop significantly. She states that she gets into the coughing fits and then has to work to catch her breath. The cough is minimally productive and primarily dry. Exam Const General: no acute distress Nutritional Appearance: well nourished [facility] Head: normocephalic Ears: external ears normal and no periauricular adenopathy General nose exam: nasal mucous membranes and turbinates normal Face and sinus: sinuses nontender Mouth: oropharynx normal and moist mucous membranes Teeth and gingiva: dentition normal Eyes General: appearance normal, both eyes and all related structures Pupils: PERRL Neck Neck: normal visual inspection and no lymphadenopathy Chest Chest: normal inspection of the chest Resp Effort & Inspection: normal respiratory effort Auscultation: rales bilaterally 1/2 way up, no rhonchi and no wheezes Cardio Rate: regular rate Rhythm: regular rhythm Heart Sounds: S1 normal, S2 normal and no murmurs Pulses: radial pulses present bilaterally GI Inspection: normal to inspection Palpation: soft Skin General skin exam: no rashes or lesions noted Neuro General: patient alert, patient awake and patient oriented x3 Extrem General: no clubbing, cyanosis or edema Psych Mental Status: mental status grossly normal Affect: normal affect Attitude: cooperative Most Recent VS/Results Last Vital Signs Temp 37.1 C 09/04/21 04:00 Pulse 88 09/04/21 06:00 Resp 22 09/04/21 06:00 BP 128/75 09/04/21 06:00 Pulse Ox 94 09/04/21 06:00 Laboratory Results - last 24 hr 09/04/21 06:00 Sodium 126 L Potassium 4.9 D Chloride 91 L Carbon Dioxide 29.7 Anion Gap 5.3 BUN 17 Creatinine 0.7 Estimated GFR/1.73 m2 >= 60.00 Glucose 98 Calcium 8.9 Review of Systems All systems reviewed & are unremarkable except as noted in HPI and below Time spent with patient Time spent in Critical Care: 35 Time spent in Critical care included: Coordination of care, Chart review, Documenting critically ill care, Time at immediate bedside and Discussing critically ill care with other medical staff
[2021-09-04] MEDS: Potassium Chloride 20 MEQ TABCR 40 MEQ PO (09:00)
[2021-09-04] MEDS: Enoxaparin 40 MG/0.4 ML SYR SC (09:00)
[2021-09-04] MEDS: Famotidine 20 MG TAB PO (09:02)
[2021-09-04] MEDS: Docusate Sodium 100 MG CAP PO ×2 (09:02→19:58)
[2021-09-04] MEDS: Furosemide 20 MG TAB PO ×2 (09:02→16:14)
[2021-09-04] MEDS: guaiFENesin/CODEINE PHOSPHATE 10 ML CUP PO ×2 (09:02→19:58)
[2021-09-04] MEDS: Losartan 50 MG TAB 100 MG PO (09:02)
[2021-09-04] MEDS: Atenolol 50 MG TAB PO (09:03)
[2021-09-04] MEDS: Normal Saline Flush 10 ML SYR IVP ×2 (09:03→19:59)
[2021-09-04] MEDS: predniSONE 20 MG TAB 60 MG PO (09:03)
[2021-09-04] MEDS: Budesonide/Formoterol 160/4.5 6 GM 60 PUFF INH IH ×2 (09:06→19:59)
--- NOTE | 2021-09-04 09:07 | CMPROGNOTE_ITS ---
- If Service Date Differs Date of service: 09/04/21 Time of Service: 18:16 Care Management Progress Note S/O: Per report, Sienna plans to stay with her son, Quinn, who lives in [place] and is an RN, for a short time post hospitalization. Per MD, Sienna is making slow progression at this time. CM will continue to follow. A: Sienna is a 71 year old female admitted to [facility] on 08/30/21 for hypoxic respiratory failure, pulmonary fibrosis. P: Anticipate Sienna will go to her son's home to recover once she is medically cleared. She will be driven home by her son, Quinn. She will require an O2 tank for travel, which CM asked RT to attend to. She will follow up with her PCP and discharge plan of care. CM will continue to follow.
[2021-09-04] MEDS: Sertraline 50 MG TAB PO (09:11)
--- NOTE | 2021-09-04 12:23 | PGE_ITS ---
Date of Service Date of service: 09/04/21 Time of Service: : Assessment and Plan Assessment and plan (1) Acute exacerbation of idiopathic pulmonary fibrosis: Status: Acute Assessment and plan: Patient underwent fiberoptic bronchoscopy with BAL washings to rule out any fungal component or bacterial component to her exacerbation since we will keep her on high-dose steroids. \ She is not febrile and she has no leukocytosis nor any elevation of procalcitonin, she has not been put on any antimicrobials. Will initiate prophylaxis for PJP (e.g. atovaquone). She has a sulfa allergy listed in her medical record and states that she apparently had some reaction as an infant that resulted in the possibility of a sulfa allergy. She believes it was a skin manifestation and she is willing to try bactrim SS daily; initiated on 09/01 w/o incident. Fungal serology pending. Viral PCR studies neg. Coughing paroxysms for up to 10mins in length. O2 desaturations with cough. PRN guaifenesin/codeine Duonebs, albuterol. Prednisone (2) Acute and chronic respiratory failure with hypoxia: Status: Acute Assessment and plan: Due to above. As above. PE ruled out. (3) Elevated troponin: Status: Acute Assessment and plan: troponin I now declining. Cardiology also concurs that this was a type II ischemia brought on by hypoxemia and SVT. Echo was ordered by the research programmer but was never completed. (4) SVT (supraventricular tachycardia): Status: Resolved Assessment and plan: Resolved. Now has sinus tachycardia that is improving. No CP. (5) Chest pain: Status: Resolved Assessment and plan: In setting of hypoxemia and SVT. No further chest pain. Troponin I decreased to 0.17 from high of 0.4. Cardiology also does not feel that this was ACS but rather was d/t type II demand ischemia (6) Hypokalemia: Status: Acute Assessment and plan: The patient was recently initiated on HCTZ which can cause hypokalemia. Repleted and now normal. Potassium now corrected to 4.9. Patient now on potassium 40 meq daily; decrease to 20meq daily. Monitor. (7) Hypomagnesemia: Status: Acute Assessment and plan: Repleted Mg++ went up to 2.3. Mg of 1.9. Monitor. (8) Rib fracture: Status: Acute Assessment and plan: Likely due to cough as the patient is denying trauma. Vitamin D level pending. (9) Discharge planning issues: Status: Acute Assessment and plan: Full code as confirmed by conversation with the patient on admission (10) DVT prophylaxis: Status: Acute Assessment and plan: Enoxaparin SC (11) Hyponatremia: Status: Acute Assessment and plan: Na 126 today; 125 yesterday. No confusion. Subjective Subjective Patient reports: no new complaints, tolerating a regular diet and afebrile; denies nausea and vomiting Interval history since last seen: Coughing paroxysms resulting in drop in O2 saturation. Exam Narrative Exam Narrative: -sitting up in her bed talking in complete paragraphs not using accessory respiratory muscles. Const General: cooperative, no acute distress and other Resp Effort & Inspection: normal respiratory effort Auscultation: crackles bilaterally Cardio Rate: regular rate Rhythm: regular rhythm Heart Sounds: S1 normal and S2 normal GI Inspection: normal to inspection Palpation: soft and nontender Skin General skin exam: no rashes or lesions noted Extrem General: no pedal edema and no calf tenderness Objective Last Vital Signs Temp 37.4 C 09/04/21 08:45 Pulse 94 H 09/04/21 08:00 Resp 17 09/04/21 09:00 BP 127/76 09/04/21 08:00 Pulse Ox 94 09/04/21 09:00 Laboratory Results - last 24 hr 09/04/21 06:00 Sodium 126 L Potassium 4.9 D Chloride 91 L Carbon Dioxide 29.7 Anion Gap 5.3 BUN 17 Creatinine 0.7 Estimated GFR/1.73 m2 >= 60.00 Glucose 98 Calcium 8.9 PAWSS Have you Been Recently Intoxicated or Drunk Within the Last 30 days?: No Have you Ever Experienced Previous Episodes of Alcohol Withdrawal?: No Have you ever Experienced Withdrawal Seizures?: No Have you ever Experienced Delirium Tremens(DT)s?: No Have you ever undergone Alcohol Rehabilitation Treatment (i.e, inpt ot outpatient treatment programs)?: No Have you ever Experienced Blackouts?: No Have you ever Combined Alcohol with other Downers within the last 90 days?: No Have you ever Combined Alcohol with any other Substance of Abuse during the last 90 days?: No Positive Blood Alcohol level on Presentation? [PCS.BAL]: No Evidence of Increased Autonomic Activity (i.e. HR>120, tremor, sweating, agitation, nausea)?: No Result: 0
--- NOTE | 2021-09-04 14:34 | CHAPLAIN ---
Sienna was resting comfortably in bed when I visited. She said she expects to stay over night tonight at least, before being discharged and then plans to stay with her son and daughter in law in [place] when she is discharged. Her son Quinn is a nurse. Sienna shared some personal history and talked about her experiences with her diagnosis a few years ago. She likes things to be in order, and recently completed cataloguing the family furniture and belongs in her house. Her parents have both and her sister at 60 so Sienna is the sole survivor of her family of origin and it is important to her that she take care of family furniture and possessions. Sienna lives by herself in [place]. He three kids all live at a distance. Quinn is the closest in [place]. She is clearly proud of her kids, their accomplishments and who they are as people after dealing with some difficult situations in childhood. Sienna is [employer], and said she has tailored her beliefs to meet her needs. She attends the [employer] in [facility]. This flareup of his illness has been scary for her, but she is feeling like there are things she can control and is focusing on that. 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
[2021-09-04] MEDS: Atorvastatin 20 MG TAB PO (19:59)
[2021-09-05] VITALS (56 sets, daily range): BP systolic 102–129; BP diastolic 59–80; PULSE 76–107; RESP 1–35; TEMP 36–36.6; O2SAT 86–99
[2021-09-05] MEDS: Melatonin 3 MG TAB PO ×2 (00:30→21:52)
[2021-09-05] MEDS: Zolpidem 5 MG TAB PO (00:30)
[2021-09-05] MEDS: guaiFENesin/CODEINE PHOSPHATE 10 ML CUP PO ×4 (00:31→21:52)
[2021-09-05] MEDS: Albuterol 2.5 MG/3 ML INH SOLN VIAL UPD (03:28)
[2021-09-05] MEDS: Levothyroxine 50 MCG TAB PO (06:07)
[2021-09-05 07:36] LABS: Anion Gap 9.5 mmol/L (3-11); BUN 22 mg/dL (7-18); CO2 26.5 mmol/L (21.0-32.0); CREATININE 0.7 mg/dL (0.55-1.02); Calcium 8.7 mg/dL (8.5-10.1); Chloride 90 mmol/L (98-107); Glucose 95 mg/dL (74-106); Potassium 4.2 mmol/L (3.5-5.1); Sodium 126 mmol/L (136-145)
[2021-09-05 07:38] LABS: Magnesium 1.7 mg/dL (1.8-2.4)
[2021-09-05] MEDS: Budesonide/Formoterol 160/4.5 6 GM 60 PUFF INH IH ×2 (08:21→21:52)
[2021-09-05] MEDS: Albuterol/Ipratropium 3 ML UPD VIAL UPD ×4 (08:21→21:51)
[2021-09-05] MEDS: Enoxaparin 40 MG/0.4 ML SYR SC (09:04)
[2021-09-05] MEDS: Atenolol 50 MG TAB PO (09:04)
[2021-09-05] MEDS: Losartan 50 MG TAB 100 MG PO (09:05)
[2021-09-05] MEDS: Famotidine 20 MG TAB PO (09:05)
[2021-09-05] MEDS: Furosemide 20 MG TAB PO ×2 (09:05→15:38)
[2021-09-05] MEDS: predniSONE 20 MG TAB 60 MG PO (09:07)
[2021-09-05] MEDS: Sertraline 50 MG TAB PO (09:07)
[2021-09-05] MEDS: Potassium Chloride 20 MEQ TABCR PO (09:07)
--- NOTE | 2021-09-05 10:09 | W.PULMCC ---
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 She had been ruled out for a PE, however her CT scans show progressive fibrotic disease in addition now to bilateral ground glass opacities. I suspected an ILD flare however given the appearance of her CAT scan and subacute nature there was a reasonable possibility that this could be an infectious etiology. I performed a bronchoscopy with a BAL of the right middle lobe that has been negative for infectious work-up thus far. Additionally the cell differential on the BAL was completely normal. Given these results it is safe to continue with high-dose steroids as treatment of an ILD flare. She continues to make slow progress but was able to tolerate oxymizer overnight. She still has significant desaturations during coughing fits but seems to be making small improvements. Recommendations Pulmonary: Hypoxic Respiratory Failure - continue O2 for sats >90% - hold hypertonic saline nebs for now - continue Symbicort bid - continue albuterol nebs 4 times a day - incentive spirometry and Acapella (VibraPEP) - OOB to chair - recommend continued diuresis ILD flare - continue home OFEV - continue codeine cough syrup to try and prevent the significant desaturations during her coughing fits. - she wished to switch her care from [facility] to [facility] for her pulmonary needs - recommend the following prednisone taper:60mg daily for 1 week, 50mg daily for 1 week, 40mg daily for 1 week, 30mg daily for 1 week, 20mg daily for 1 week, 10mg daily for 1 week, 5mg daily for 1 week - continue PJP ppx until patient prednisone dose is below 20mg Cardiac: SVT - likely 2/2 hypoxia - no further episodes Elevated troponin - demand in the setting of hypoxia Renal: Subacute Hyponatremia - stable from labs done at [facility] 08/03/21 - recommend stopping HCTZ - starting Lasix PO 20mg bid I&O: Intake & Output 09/02/21 09/03/21 09/04/21 09/05/21 23:59 23:59 23:59 23:59 Intake Total 1490 / 1490 850 / 850 1017 / 1017 510 / 510 Output Total 1800 / 1800 1100 / 1100 2024 / 2024 675 / 675 Balance -310 / -310 -250 / -250 -1008 / -1008 -165 / -165 Weight 65.5 kg 64.9 kg 64.3 kg 63.7 kg Daily Fluid Goal:: Negative 1-2L in 24 hours GI Nutrition: Continue diet Date of Last Bowel Movement: 09/02/21 Infectious Disease: No acute concerns Hematologic: No acute concerns Neurologic: No acute concerns Endocrine: No acute concerns - monitor daily glucose given steroids Lines: PIV Prophylaxis: famotidine and lovenox Code Status: Resuscitation Status Full Code Subjective Critical and life-threatening events over the past 24 hours: Sienna is doing well today. The cough syrup is providing her some relief. She still desaturates significantly with coughing, but not not such a drastic degree. She was also able to walk slowly to the commode without experiencing desaturations. She also is 1L negative since starting low dose lasix. She requested a palliative consult with Dr. Moss once she has returned to work in October. Exam Const General: no acute distress Nutritional Appearance: well nourished [facility] Head: normocephalic Ears: external ears normal and no periauricular adenopathy General nose exam: nasal mucous membranes and turbinates normal Face and sinus: sinuses nontender Mouth: oropharynx normal and moist mucous membranes Teeth and gingiva: dentition normal Eyes General: appearance normal, both eyes and all related structures Pupils: PERRL Neck Neck: normal visual inspection and no lymphadenopathy Chest Chest: normal inspection of the chest Resp Effort & Inspection: normal respiratory effort Auscultation: rales bilaterally 1/[address] up, no rhonchi and no wheezes Cardio Rate: regular rate Rhythm: regular rhythm Heart Sounds: S1 normal, S2 normal and no murmurs Pulses: radial pulses present bilaterally GI Inspection: normal to inspection Palpation: soft Skin General skin exam: no rashes or lesions noted Neuro General: patient alert, patient awake and patient oriented x3 Extrem General: no clubbing, cyanosis or edema Psych Mental Status: mental status grossly normal Affect: normal affect Attitude: cooperative Most Recent VS/Results Last Vital Signs Temp 36.5 C 09/05/21 09:19 Pulse 105 H 09/05/21 09:19 Resp 22 09/05/21 09:19 BP 122/61 09/05/21 09:19 Pulse Ox 93 09/05/21 09:19 Laboratory Results - last 24 hr 08/31/21 09/05/21 09/05/21 17:40 06:20 06:20 Sodium 126 L Potassium 4.2 Chloride 90 L Carbon Dioxide 26.5 Anion Gap 9.5 BUN 22 H Creatinine 0.7 Estimated GFR/1.73 m2 >= 60.00 Glucose 95 Calcium 8.7 Magnesium 1.7 L Urine Histoplasma Ag Not Detected U Histoplasma Ag Index Not Detected Review of Systems All systems reviewed & are unremarkable except as noted in HPI and below Time spent with patient Time spent in Critical Care: 35 Time spent in Critical care included: Performing procedures not included in c.c time, Coordination of care, Chart review, Documenting critically ill care, Time at immediate bedside and Discussing critically ill care with other medical staff
--- NOTE | 2021-09-05 12:06 | PGE_ITS ---
Date of Service Date of service: 09/05/21 Time of Service: 12:06 Assessment and Plan Assessment and plan (1) Acute exacerbation of idiopathic pulmonary fibrosis: Status: Acute Assessment and plan: Patient underwent fiberoptic bronchoscopy with BAL washings to rule out any fungal component or bacterial component to her exacerbation since we will keep her on high-dose steroids. \ She is not febrile and she has no leukocytosis nor any elevation of procalcitonin, she has not been put on any antimicrobials. Will initiate prophylaxis for PJP (e.g. atovaquone). She has a sulfa allergy listed in her medical record and states that she apparently had some reaction as an infant that resulted in the possibility of a sulfa allergy. She believes it was a skin manifestation and she is willing to try bactrim SS daily; initiated on 09/01 w/o incident. Fungal serology pending. Viral PCR studies neg. Coughing paroxysms for up to 10mins in length. O2 desaturations with cough. Improving. PRN guaifenesin/codeine Duonebs, albuterol. Prednisone (2) Acute and chronic respiratory failure with hypoxia: Status: Acute Assessment and plan: Due to above. As above. PE ruled out. (3) Elevated troponin: Status: Acute Assessment and plan: Troponin peaked then declined. Cardiology agreed that this is type II ischemia brought on by hypoxemia and SVT. Echocardiogram: Normal left ventricular wall thickness and chamber size. Estimated ejection fraction is 55 to 60%. Wall motion is normal The right ventricle is not well visualized, unable to assess right ventricular function Both atria are normal in size The aortic valve is sclerotic and trileaflet without stenosis or regurgitation Mild mitral annular calcification. Trace to mild mitral regurgitation Normal tricuspid valve with trace to mild regurgitation. Estimated right ventricular systolic pressure is 37 mmHg Mildly dilated ascending aorta (4) SVT (supraventricular tachycardia): Status: Resolved Assessment and plan: Resolved. Now has sinus tachycardia that is improving. No CP. (5) Chest pain: Status: Resolved Assessment and plan: In setting of hypoxemia and SVT. No further chest pain. Troponin I decreased to 0.17 from high of 0.4. Cardiology also does not feel that this was ACS but rather was d/t type II demand ischemia (6) Hypokalemia: Status: Acute Assessment and plan: The patient was recently initiated on HCTZ which can cause hypokalemia. Repleted and now normal. Potassium corrected and increased to 4.9. Patient was on potassium 40 meq daily; decrease to 20meq daily. Monitor. (7) Hypomagnesemia: Status: Acute Assessment and plan: Repleted Mg++ went up to 2.3. Mg of 1.9. Monitor. (8) Rib fracture: Status: Acute Assessment and plan: Likely due to cough as the patient is denying trauma. Vitamin D level pending. (9) Discharge planning issues: Status: Acute Assessment and plan: Full code as confirmed by conversation with the patient on admission (10) DVT prophylaxis: Status: Acute Assessment and plan: Enoxaparin SC (11) Hyponatremia: Status: Acute Assessment and plan: Na 126 today; 125 yesterday. No confusion. Subjective Subjective Patient reports: no new complaints, tolerating a regular diet and afebrile; denies nausea and vomiting Interval history since last seen: Cough has improved somewhat. Less decrease in oxygen saturation with activity or coughing paroxysms. Exam Narrative Exam Narrative: -sitting up in her bed talking in complete paragraphs not using accessory respiratory muscles. Const General: cooperative, no acute distress and other Resp Effort & Inspection: normal respiratory effort Auscultation: crackles bilaterally Cardio Rate: regular rate Rhythm: regular rhythm Heart Sounds: S1 normal and S2 normal GI Inspection: normal to inspection Palpation: soft and nontender Skin General skin exam: no rashes or lesions noted Extrem General: no pedal edema and no calf tenderness Objective Last Vital Signs Temp 36.5 C 09/05/21 09:19 Pulse 105 H 09/05/21 09:19 Resp 22 09/05/21 09:19 BP 122/61 09/05/21 09:19 Pulse Ox 93 09/05/21 09:19 Laboratory Results - last 24 hr 08/31/21 09/05/21 09/05/21 17:40 06:20 06:20 Sodium 126 L Potassium 4.2 Chloride 90 L Carbon Dioxide 26.5 Anion Gap 9.5 BUN 22 H Creatinine 0.7 Estimated GFR/1.73 m2 >= 60.00 Glucose 95 Calcium 8.7 Magnesium 1.7 L Urine Histoplasma Ag Not Detected U Histoplasma Ag Index Not Detected PAWSS Have you Been Recently Intoxicated or Drunk Within the Last 30 days?: No Have you Ever Experienced Previous Episodes of Alcohol Withdrawal?: No Have you ever Experienced Withdrawal Seizures?: No Have you ever Experienced Delirium Tremens(DT)s?: No Have you ever undergone Alcohol Rehabilitation Treatment (i.e, inpt ot outpati ent treatment programs)?: No Have you ever Experienced Blackouts?: No Have you ever Combined Alcohol with other Downers within the last 90 days?: No Have you ever Combined Alcohol with any other Substance of Abuse during the last 90 days?: No Positive Blood Alcohol level on Presentation? [PCS.BAL]: No Evidence of Increased Autonomic Activity (i.e. HR>120, tremor, sweating, agitation, nausea)?: No Result: 0
--- NOTE | 2021-09-05 14:18 | NUR.NOTE ---
Case management meets with patient.Nursing Note:
--- NOTE | 2021-09-05 15:13 | CHAPLAIN ---
I had a visit with Sienna this morning. She said she believes she'll be here through gi and the weekend. She said she is ok with that and would rather not go home until she is sure she won't need to come back. Her son and his family will be visiting tomorrow, and Sienna is looking forward to that. Her son is a nurse who lives in the [facility] and Sienna will be staying with him when she is discharged. She appreciated the prayer stacey, edyta and arlet, because her dad was headmaster at years ago). 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
[2021-09-05] MEDS: Docusate Sodium 100 MG CAP PO (15:38)
[2021-09-05] MEDS: Atorvastatin 20 MG TAB PO (18:18)
--- NOTE | 2021-09-05 19:07 | CMPROGNOTE_ITS ---
- If Service Date Differs Date of service: 09/05/21 Time of Service: 19:07 Care Management Progress Note S/O: Sienna was sitting up in bed when CM met with her. She was pleasant and engaged in conversation. She reported that she feels that she is improving, although it is a slow progression. CM discussed Palliative Care with Sienna, as it could be a great resource for her in the community. She requested to meet with Dr. Moss, and would prefer not to meet with Dr. De La Vega. Dr. Moss is current ly not seeing palliative patients, so CM suggested Winifred Loaiza, and she stated that she would be happy to meet with Winifred. Palliative is currently not available due to the Holiday, but CM will arrange for Winifred to see her next week, if she is still inpatient at that time. Sienna reports that she is comfortable, and very happy with the care she is receiving. She is talking with her children daily, keeping them updated. CM will continue to follow. A: Sienna is a 71 year old female admitted to [facility] on 08/30/21 for hypoxic respiratory failure, pulmonary fibrosis. P: Anticipate Sienna will go to her son's home to recover once she is medically cleared. She will be driven home by her son, Quinn. She will require an O2 tank for travel, which CM asked RT to attend to. She will follow up with her PCP and discharge plan of care. CM will continue to follow.
[2021-09-05] MEDS: Normal Saline Flush 10 ML SYR IVP (21:52)
[2021-09-05] MEDS: Magnesium Oxide 400 MG TAB PO (21:52)
[2021-09-05] MEDS: Ergocalciferol 50000 UNITS CAP PO (21:57)
[2021-09-06] VITALS (11 sets, daily range): BP systolic 99–123; BP diastolic 61–77; PULSE 73–94; RESP 4–25; TEMP 36–36.7; O2SAT 80–97
[2021-09-06] MEDS: Albuterol 2.5 MG/3 ML INH SOLN VIAL UPD (05:10)
[2021-09-06] MEDS: Levothyroxine 50 MCG TAB PO (05:11)
[2021-09-06] MEDS: guaiFENesin/CODEINE PHOSPHATE 10 ML CUP PO ×4 (05:11→20:17)
[2021-09-06 05:51] LABS: Anion Gap 5.6 mmol/L (3-11); BUN 24 mg/dL (7-18); CO2 28.4 mmol/L (21.0-32.0); CREATININE 0.8 mg/dL (0.55-1.02); Calcium 8.5 mg/dL (8.5-10.1); Chloride 93 mmol/L (98-107); Glucose 108 mg/dL (74-106); Potassium 4.5 mmol/L (3.5-5.1); Sodium 127 mmol/L (136-145)
[2021-09-06] MEDS: Furosemide 20 MG TAB PO ×2 (08:12→15:32)
[2021-09-06] MEDS: Atenolol 50 MG TAB PO (08:12)
[2021-09-06] MEDS: Losartan 50 MG TAB 100 MG PO (08:12)
[2021-09-06] MEDS: predniSONE 20 MG TAB 60 MG PO (08:12)
[2021-09-06] MEDS: Famotidine 20 MG TAB PO (08:12)
[2021-09-06] MEDS: Enoxaparin 40 MG/0.4 ML SYR SC (08:13)
[2021-09-06] MEDS: Potassium Chloride 20 MEQ TABCR PO (08:13)
[2021-09-06] MEDS: Sertraline 50 MG TAB PO (08:29)
[2021-09-06] MEDS: Ibuprofen 400 MG TAB PO ×2 (09:40→20:13)
[2021-09-06] MEDS: Docusate Sodium 100 MG CAP PO ×3 (09:41→22:10)
[2021-09-06] MEDS: Albuterol/Ipratropium 3 ML UPD VIAL UPD ×4 (10:00→20:13)
[2021-09-06] MEDS: Budesonide/Formoterol 160/4.5 6 GM 60 PUFF INH IH ×2 (10:06→20:16)
--- NOTE | 2021-09-06 14:24 | W.PM.PROGNOT ---
Date of Service Date of service: 09/06/21 Time of Service: 14:24 Assessment and Plan Assessment and plan (1) Acute exacerbation of idiopathic pulmonary fibrosis: Status: Acute Assessment and plan: Patient underwent fiberoptic bronchoscopy with BAL washings to rule out any fungal component or bacterial component to her exacerbation since we will keep her on high-dose steroids. \ She is not febrile and she has no leukocytosis nor any elevation of procalcitonin, she has not been put on any antimicrobials. Will initiate prophylaxis for PJP (e.g. atovaquone). She has a sulfa allergy listed in her medical record and states that she apparently had some reaction as an infant that resulted in the possibility of a sulfa allergy. She believes it was a skin manifestation and she is willing to try bactrim SS daily; initiated on 09/01 w/o incident. Fungal serology pending. Viral PCR studies neg. Coughing paroxysms for up to 10mins in length. O2 desaturations with cough. Overall, improving. PRN guaifenesin/codeine Duonebs, albuterol. Prednisone (2) Acute and chronic respiratory failure with hypoxia: Status: Acute Assessment and plan: Due to above. As above. PE ruled out. (3) Elevated troponin: Status: Acute Assessment and plan: Troponin peaked then declined. Cardiology agreed that this is type II ischemia brought on by hypoxemia and SVT. Echocardiogram: Normal left ventricular wall thickness and chamber size. Estimated ejection fraction is 55 to 60%. Wall motion is normal The right ventricle is not well visualized, unable to assess right ventricular function Both atria are normal in size The aortic valve is sclerotic and trileaflet without stenosis or regurgitation Mild mitral annular calcification. Trace to mild mitral regurgitation Normal tricuspid valve with trace to mild regurgitation. Estimated right ventricular systolic pressure is 37 mmHg Mildly dilated ascending aorta (4) SVT (supraventricular tachycardia): Status: Resolved Assessment and plan: Resolved. Now has sinus tachycardia that is improving. No CP. (5) Chest pain: Status: Resolved Assessment and plan: In setting of hypoxemia and SVT. No further chest pain. Troponin I decreased to 0.17 from high of 0.4. Cardiology also does not feel that this was ACS but rather was d/t type II demand ischemia (6) Hypokalemia: Status: Acute Assessment and plan: The patient was recently initiated on HCTZ which can cause hypokalemia. Repleted and now normal. Potassium corrected and increased to 4.9 > 4.5. Patient was on potassium 40 meq daily; decrease to 20meq daily. Monitor. (7) Hypomagnesemia: Status: Acute Assessment and plan: Mg++ went up to 2.3. Mg of 1.9 > 1.7. Increase MgOxide to 400mg BID. Monitor. (8) Rib fracture: Status: Acute Assessment and plan: Likely due to cough as the patient is denying trauma. Vitamin D level 14.8 Vit D 50,000 Units po Qweek. (9) Discharge planning issues: Status: Acute Assessment and plan: Full code as confirmed by conversation with the patient on admission (10) DVT prophylaxis: Status: Acute Assessment and plan: Enoxaparin SC (11) Hyponatremia: Status: Acute Assessment and plan: Na 126 today; 125 yesterday. No confusion. Subjective Subjective Patient reports: no new complaints and tolerating a regular diet; denies diarrhea, nausea and vomiting Interval history since last seen: She endorses that her cough is less frequent but still has paroxysms that cause her O2 saturations to drop. Exam Narrative Exam Narrative: -sitting up in her bed talking in complete paragraphs not using accessory respiratory muscles. Const General: cooperative, no acute distress and other Resp Effort & Inspection: normal respiratory effort Auscultation: crackles bilaterally Cardio Rate: regular rate Rhythm: regular rhythm Heart Sounds: S1 normal and S2 normal GI Inspection: normal to inspection Palpation: soft and nontender Skin General skin exam: no rashes or lesions noted Extrem General: no pedal edema and no calf tenderness Objective Last Vital Signs Temp 36.6 C 09/06/21 07:50 Pulse 89 09/06/21 12:00 Resp 25 H 09/06/21 12:00 BP 116/75 09/06/21 12:00 Pulse Ox 85 L 09/06/21 13:13 Laboratory Results - last 24 hr 09/06/21 05:11 Sodium 127 L Potassium 4.5 Chloride 93 L Carbon Dioxide 28.4 Anion Gap 5.6 BUN 24 H Creatinine 0.8 Estimated GFR/1.73 m2 >= 60.00 Glucose 108 H Calcium 8.5 PAWSS Have you Been Recently Intoxicated or Drunk Within the Last 30 days?: No Have you Ever Experienced Previous Episodes of Alcohol Withdrawal?: No Have you ever Experienced Withdrawal Seizures?: No Have you ever Experienced Delirium Tremens(DT)s?: No Have you ever undergone Alcohol Rehabilitation Treatment (i.e, inpt ot outpatient treatment programs)?: No Have you ever Experienced Blackouts?: No Have you ever Combined Alcohol with other Downers within the last 90 days?: No Have you ever Combined Alcohol with any other Substance of Abuse during the last 90 days?: No Positive Blood Alcohol level on Presentation? [PCS.BAL]: No Evidence of Increased Autonomic Activity (i.e. HR>120, tremor, sweating, agitation, nausea)?: No Result: 0
[2021-09-06] MEDS: Magnesium Oxide 400 MG TAB PO ×2 (15:32→20:14)
[2021-09-06] MEDS: Atorvastatin 20 MG TAB PO (20:14)
[2021-09-06] MEDS: Milk of Magnesia 30 ML CUP PO (20:17)
[2021-09-06] MEDS: Melatonin 3 MG TAB PO (22:10)
[2021-09-06] MEDS: Zolpidem 5 MG TAB PO (22:18)
[2021-09-07] VITALS (26 sets, daily range): BP systolic 103–146; BP diastolic 57–85; PULSE 74–105; RESP 1–36; TEMP 36.4–37.3; O2SAT 69–98
[2021-09-07] MEDS: guaiFENesin/CODEINE PHOSPHATE 10 ML CUP PO ×5 (03:45→21:48)
[2021-09-07] MEDS: Albuterol 2.5 MG/3 ML INH SOLN VIAL UPD (03:46)
[2021-09-07] MEDS: Levothyroxine 50 MCG TAB PO (06:16)
[2021-09-07 06:57] LABS: Absolute Basophil Count 0.01 10^3/uL (0.0-0.2); Absolute Eosinophil Count 0.33 10^3/uL (0.0-0.7); Absolute Lymphocyte Count 1.07 10^3/uL (1.2-3.4); Absolute Monocyte Count 0.72 10^3/uL (0.1-0.8); Absolute Neutrophil Count 6.31 10^3/uL (1.2-6.7); Basophils % 0.1; Eosinophils % 3.9; HCT 32.4 % (36.0-46.0); Immature Grans % 1.2; Lymphocytes % 12.5; MCH 28.9 pg (27.0-33.0); MPV 9.3 fL (8.0-11.0); Monocytes % 8.4; Neutrophils % 73.9; Nucleated RBC 0 %; Platelet Count 281 10^3/uL (130-400); RBC 3.81 10^6/uL (3.93-5.22); RDW 13.2 % (11.7-14.6); RDW-SD 40.8 fL; WBC 8.54 10^3/uL (4.4-10.8)
[2021-09-07 07:31] LABS: ALT 28 U/L (14-59); AST 30 U/L (15-37); Albumin 2.7 g/dL (3.4-5.0); Alkaline Phosphatase 44 U/L (46-116); BUN 26 mg/dL (7-18); Bilirubin, Total 0.4 mg/dL (0.2-1.0); CREATININE 0.8 mg/dL (0.55-1.02); Calcium 8.4 mg/dL (8.5-10.1); Chloride 94 mmol/L (98-107); Glucose 104 mg/dL (74-106); Potassium 4.5 mmol/L (3.5-5.1); Sodium 129 mmol/L (136-145); Total Protein 6.1 g/dL (6.4-8.2)
[2021-09-07] MEDS: Enoxaparin 40 MG/0.4 ML SYR SC (07:57)
[2021-09-07] MEDS: Potassium Chloride 20 MEQ TABCR PO (07:58)
[2021-09-07] MEDS: Losartan 50 MG TAB 100 MG PO (07:58)
[2021-09-07] MEDS: Famotidine 20 MG TAB PO (07:58)
[2021-09-07] MEDS: predniSONE 20 MG TAB 60 MG PO (07:58)
[2021-09-07] MEDS: Atenolol 50 MG TAB PO (07:58)
[2021-09-07] MEDS: Furosemide 20 MG TAB PO ×2 (07:59→17:47)
[2021-09-07] MEDS: Docusate Sodium 100 MG CAP PO (07:59)
[2021-09-07] MEDS: Magnesium Oxide 400 MG TAB PO ×2 (07:59→19:44)
[2021-09-07] MEDS: Sertraline 50 MG TAB PO (07:59)
[2021-09-07] MEDS: Ibuprofen 400 MG TAB PO ×3 (07:59→21:48)
[2021-09-07] MEDS: Albuterol/Ipratropium 3 ML UPD VIAL UPD ×4 (08:00→19:45)
[2021-09-07] MEDS: Budesonide/Formoterol 160/4.5 6 GM 60 PUFF INH IH ×2 (08:31→19:42)
[2021-09-07] MEDS: Benzonatate 200 MG CAP PO ×3 (08:58→19:44)
[2021-09-07] MEDS: Polyethylene Glycol 3350 17 GM PACKET PO ×2 (08:58→19:45)
--- NOTE | 2021-09-07 09:52 | PDOC.CMPRO ---
- If Service Date Differs Date of service: 09/07/21 Time of Service: 09:52 Care Management Progress Note S/O: Sienna was sitting up in bed when CM met with her. She was pleasant in interaction and engaged easily with CM. Sienna had many questions about her discharge plan and asked if CM could meet with her son Quinn when he came to visit. Sienna shared that she would be going to stay with Quinn in [place] when she was ready for discharge. He is an experienced RN and will be taking a leave of absence to provide care for her. Sienna also shared some details of her marriage and life during her child rearing years and some of the challenges she has faced and overcome. She verbalized understanding that she is very ill and may not recover to her former baseline. At this point her future is uncertain. She will stay with Quinn and his as long as needed, but knows that she may not be able to return to the home that she loves . Quinn came to visit this afternoon and CM met with him as well. He has very appropriate, specific questions about Sienna's discharge plan and current health issues that need to be addressed with Dr. Buckley. He needs to ensure that when discharged, her oxygen needs do not exceed those that can be provided in the home. He feels comfortable providing her care but knows that there are limits to what can be accomplished in that setting. He also has questions about respiratory equipment and routines which can best be addressed by Dr. Buckley and the RT staff. Quinn also talked about palliative care and hospice and what role those services may play going forward. Sienna has declined significantly in the past few weeks. She has gone from needing no oxygen to requiring ICU level of care for respiratory support. It is unclear at this point what her future needs and baseline will be. Quinn is very supportive but also very realistic. He and Sienna have a very close, loving, supportive relationship which is obvious when observed but also verbalized by both of them. A palliative consult has been ordered and it is hoped that it can be scheduled for Friday when Quinn will return. He also hopes to be able to meet with Dr. Buckley in person on Friday to discuss his concerns and have his questions answered. When discharged, home health services will likely be needed for PT and oxygen therapy at least and CM will work with Quinn to establish those services in the [place] area. A: Sienna is a 71 year old female admitted to [facility] on 08/30/21 for hypoxic respiratory failure, pulmonary fibrosis. P: Sienna will go to her son Quinn's home in [place] to recover once she is medically cleared. She will likely require home health services for PT and will need oxygen therapy at home. She will be driven home by Quinn. She will require an O2 tank for travel, which CM asked RT to attend to. Sienna will follow up with her PCP and discharge plan of care, although she will likely need close follow up in the [facility] for the time she is there. Depending on her course of illness, it also likely that Sienna will need Palliative Care or, possibly, hospice. CM will continue to support Sienna and her family and asses for ongoing discharge considerations..
--- NOTE | 2021-09-07 11:38 | PT.INIE ---
Date of service: 09/07/21 Time of Service: 11:38 PT Notes Visit Reasons: Hypoxic Respiratory Failure,Pulmonary Fibrosis, Physical Therapy Inpatient Initial Evaluation Date: 09/07/2021 Referring Doctor: Porfirio Beltran MD PT Orders: PT CONSULT: Eval/treat Precautions: Fall. Standard. Activity as tolerated. Patient Profile/Admitting Diagnosis: Sienna is a 71-year-old female with diagnosis of exacerbation of idiopathic pulmonary fibrosis, acute on chronic respiratory failure with hypoxia, elevated troponin, hypokalemia, hypomagnesemia, rib fracture, and hyponatremia. 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 (10/30/11) h/o LEEP 2003 Chronic low back pain Chronic respiratory failure with hypoxia Depression (06/20/15) Factor V Leiden mutation H/O cervical fibromuscular dysplasia (06/23/15) HTN (hypertension) Hyperlipidemia Hypothyroidism (acquired) Impaired fasting glucose (09/19/12) Mass of skin (12/01/12) Pulmonary fibrosis Pulmonary nodule, right 07/2021- 10 mm, with enlarged hilar lymph node- [place] 3 [place] [facility] [place] Rupture of right tympanic membrane (02/07/15) due to infection, healed 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 HIRAM Zaragoza of colonoscopy S/P right knee arthroscopy Social History/Home Situation: Sienna states that she will be recuperating at her son's house in [place] when medically cleared for discharge from this hospital. Independent with all aspects of ADLs without an assistive ambulatory device. Equipment Owned/DME: None Subjective: Sienna reports that she is a part of clinical research [place] [facility] [place] of her chronic idiopathic pulmonary fibrosis and she has been on an experimental drug for said condition. She also has been placed on prednisone which she states may have been tapered rather abruptly. She feels that this may have something to do with her condition right now as it is the only variable that was changed that led her to being admitted here. Objective: General Observation: Patient was seen and being transported from her room to [facility] by RT Boss via wheelchair. Mental Status: Alert and oriented as to person, place, time, and purpose. Able to pay attention, focus, and respond appropriately. Pain: None reported Vital Signs: Oxygen desaturation to 80% on 12 L of oxygen during mobility assessment but was able to be saturate back up to 92% after 2 to 3 minutes. Nurse Rena and RT Boss both aware. ROM: Right Upper Extremity: Shoulder Flexion WFL. Shoulder abduction WFL. Elbow flexion WFL. Wrist flexion WFL. Functional opening and closing of hand WFL. Left Upper Extremity: Shoulder Flexion WFL. Shoulder abduction WFL. Elbow flexion WFL. Wrist flexion WFL. Functional opening and closing of hand WFL. Right Lower Extremity: Hip flexion WFL. Hip abduction WFL. Knee flexion WFL. Ankle dorsiflexion WFL. Ankle plantarflexion WFL. Left Lower Extremity: Hip flexion WFL. Hip abduction WFL. Knee flexion WFL. Ankle dorsiflexion WFL. Ankle plantarflexion WFL. Strength: Right Upper Extremity: Shoulder flexors 4/5. Shoulder abductors 4/5. Elbow flexors 5/5. Elbow extensors 5/5. Licensed Life And Health Agent strong. Left Upper Extremity: Shoulder flexors 4/5. Shoulder abductors 4/5. Elbow flexors 5/5. Elbow extensors 5/5. Licensed Life And Health Agent strong. Right Lower Extremity: Hip flexors 4/5. Hip abductors 5/5. Knee flexors 5/5. Knee extensors 4/5. Ankle dorsiflexors 5/5. Ankle plantarflexors 5/5. Left Lower Extremity: Hip flexors 4/5. Hip abductors 5/5. Knee flexors 5/5. Knee extensors 4/5. Ankle dorsiflexors 5/5. Ankle plantarflexors 5/5. Bed Mobility/Transfers: Rolling supervision Supine to sit supervision Sit to supine supervision Sit to stand supervision Stand to sit supervision Bed to reclining chair standby assist Reclining chair to bed standby assist Gait: Instructed patient with level surface ambulation of 10 steps +5 steps +5 steps requiring standby assist. Destiney decreased. Desaturation down to 80% on 12 L/min. Denies dizziness. Balance: Static Sitting: Normal Dynamic Sitting: Normal Static Standing: Good Dynamic Standing: Good Special Tests: Mobility Limitations Standardized Measure [facility] AM-PAC 6 clicks Basic Mobility Inpatient Short Form: Raw Score: 23 CMS Score: 11% deficit Informed Consent/Education: Patient was instructed in purpose of PT consult and plan of care. Agreeable to proceed with established PT POC to achieve personal goals. Assessment: Sienna demonstrates decreased activity tolerance and desaturation to low levels even with high rate of oxygen supplementation during mobility performance. Needs to demonstrate saturation level WNL consistently. Patient presents with clinical signs and symptoms consistent with current/admitting diagnoses that have resulted to mobility limitations and activity limitations demonstrated by the following impairment level findings: 1. Impaired activity tolerance 2. Significant desaturation with minimal activity Impairments are contributing to the following functional limitations: 1. Difficulty with ambulation due to aberrant saturation level despite high rate of oxygen supplementation 2. Increased completion time for mobility ADL performance Patient is assessed as a antibiotics to moderate complexity based on the following: History: 71-year-old female with past medical history as indicated above Examination: Demonstrable impairment in strength, balance, and mobility level with underlying impairments and functional limitations as exhibited above as well as deficit score of 11% utilizing the [facility] Mobility Inpatient Short Form Presentation: Evolving Decision Makin moderate complexity Goals: Goals X1 week 1. Supine-Sit independent 2. Sit-Supine independent 3. Sit-Stand independent 4. Stand-Sit independent with no assistive device 5. Bed-Chair independent with no assistive device 6. Chair-Bed independent with no assistive device 7. Independent gait on level surface with use of no assistive device for at least 50 feet without report of pain nor dyspnea 8. Independent stair negotiation while holding onto 5 rails for at least 3 steps without report of pain nor dyspnea Plan of Care/Treatment Plan: 1-2x/day, 7 days/week x 1 week. Plan of care has been reviewed with the RECOATING MACHINE OPERATOR providing the service under Physical Therapy direction. Initiate Physical Therapy intervention for pain management as needed, strengthening, bed mobility, transfers, gait, stairs, balance training, and use of assistive device. DISCHARGE RECOMMENDATIONS: [] Home with no services [] [X] Home with services. Home when medically cleared by hospitalist. Will benefit from home health PT services in order to progress mobility level to premorbid independent status without an assistive device. [] Home with outpatient PT [] [] SNF for continued rehabilitation [] [] Transport Assistant Care [] [] SNF versus LTC based on ability to participate and progress [] TREATMENT CODE/TIME: 71004 x 15 minutes, 53602 x 10 minutes beginning at 11:38 AM. Thank you for the opportunity to participate in the care of this patient. Ainsley Gloria PT, DPT, CLT [facility] [place], [place]
--- NOTE | 2021-09-07 13:30 | W.PM.PROGNOT ---
Date of Service Date of service: 09/07/21 Time of Service: 13:30 Assessment and Plan Assessment and plan (1) Acute exacerbation of idiopathic pulmonary fibrosis: Status: Acute Assessment and plan: Patient underwent fiberoptic bronchoscopy with BAL washings to rule out any fungal component or bacterial component to her exacerbation since we will keep her on high-dose steroids. \ She is not febrile and she has no leukocytosis nor any elevation of procalcitonin, she has not been put on any antimicrobials. Will initiate prophylaxis for PJP (e.g. atovaquone). She has a sulfa allergy listed in her medical record and states that she apparently had some reaction as an infant that resulted in the possibility of a sulfa allergy. She believes it was a skin manifestation and she is willing to try bactrim SS daily; initiated on 09/01 w/o incident. Fungal serology pending. Viral PCR studies neg. Coughing paroxysms for up to 10mins in length. O2 desaturations with cough. Overall, improving. PRN guaifenesin/codeine Tessalon Perls 200mg TID scheduled. Cough drop lozenges. Has gone for a long stretch this AM and into the early afternoon w/o a paroxysm. Duonebs, albuterol. Prednisone (2) Acute and chronic respiratory failure with hypoxia: Status: Acute Assessment and plan: Due to above. As above. PE ruled out. (3) Elevated troponin: Status: Acute Assessment and plan: Troponin peaked then declined. Cardiology agreed that this is type II ischemia brought on by hypoxemia and SVT. Echocardiogram: Normal left ventricular wall thickness and chamber size. Estimated ejection fraction is 55 to 60%. Wall motion is normal The right ventricle is not well visualized, unable to assess right ventricular function Both atria are normal in size The aortic valve is sclerotic and trileaflet without stenosis or regurgitation Mild mitral annular calcification. Trace to mild mitral regurgitation Normal tricuspid valve with trace to mild regurgitation. Estimated right ventricular systolic pressure is 37 mmHg Mildly dilated ascending aorta (4) SVT (supraventricular tachycardia): Status: Resolved Assessment and plan: Resolved. Now has sinus tachycardia that is improving. No CP. (5) Chest pain: Status: Resolved Assessment and plan: In setting of hypoxemia and SVT. No further chest pain. Troponin I decreased to 0.17 from high of 0.4. Cardiology also does not feel that this was ACS but rather was d/t type II demand ischemia (6) Hypokalemia: Status: Acute Assessment and plan: The patient was recently initiated on HCTZ which can cause hypokalemia. Repleted and now normal. Potassium corrected and increased to 4.9 > 4.5 > 4.5. Patient was on potassium 40 meq daily; decrease to 20meq daily. Monitor. (7) Hypomagnesemia: Status: Acute Assessment and plan: Mg++ went up to 2.3. Mg of 1.9 > 1.7. Increase MgOxide to 400mg BID. Monitor. (8) Rib fracture: Status: Acute Assessment and plan: Likely due to cough as the patient is denying trauma. Vitamin D level 14.8 Vit D 50,000 Units po Qweek. (9) Discharge planning issues: Status: Acute Assessment and plan: Full code as confirmed by conversation with the patient on admission She is planning, with care managment, d/c to her son's home in [place]. He is a visiting nurse by profession. (10) DVT prophylaxis: Status: Acute Assessment and plan: Enoxaparin SC (11) Hyponatremia: Status: Acute Assessment and plan: Na 126 today; 125 yesterday. No confusion. Subjective Subjective Patient reports: no new complaints, tolerating a regular diet, bowel movement and afebrile; denies nausea and vomiting Interval history since last seen: Conts to have intermittent cough / tickle in throat causing cough. This AM had a cough with a different quality per pt. The cough was deep in chest / congested sounding. No phlegm expectorated. Exam Narrative Exam Narrative: Sitting in chair. Const General: cooperative, no acute distress and other Resp Effort & Inspection: normal respiratory effort and able to speak in complete sentences (Does fatigue and O2 saturations drop to 88% intermittently with conversatio) Auscultation: crackles Cardio Rate: regular rate Rhythm: regular rhythm Heart Sounds: S1 normal and S2 normal GI Inspection: normal to inspection Palpation: soft and nontender Skin General skin exam: no rashes or lesions noted Extrem General: no pedal edema and no calf tenderness Objective Last Vital Signs Temp 37.3 C 09/07/21 12:30 Pulse 90 09/07/21 12:13 Resp 18 09/07/21 12:13 BP 115/57 L 09/07/21 08:00 Pulse Ox 94 09/07/21 12:13 Laboratory Results - last 24 hr 09/07/21 09/07/21 06:08 06:08 WBC 8.54 RBC 3.81 L Hgb 11.0 L Hct 32.4 L MCV 85.0 MCH 28.9 MCHC 34.0 RDW 13.2 Plt Count 281 MPV 9.3 Immature Gran % 1.2 Neutrophils % 73.9 Lymphocytes % 12.5 Monocytes % 8.4 Eosinophils % 3.9 Basophils % 0.1 Nucleated RBC % 0 Absolute Neutrophils 6.31 Absolute Lymphocytes 1.07 L Absolute Monocytes 0.72 Absolute Eosinophils 0.33 Absolute Basophils 0.01 Sodium 129 L Potassium 4.5 Chloride 94 L Carbon Dioxide 30.0 Anion Gap 5.0 BUN 26 H Creatinine 0.8 Estimated GFR/1.73 m2 >= 60.00 Glucose 104 Calcium 8.4 L Total Bilirubin 0.4 AST 30 ALT 28 Alkaline Phosphatase 44 L Total Protein 6.1 L Albumin 2.7 L PAWSS Have you Been Recently Intoxicated or Drunk Within the Last 30 days?: No Have you Ever Experienced Previous Episodes of Alcohol Withdrawal?: No Have you ever Experienced Withdrawal Seizures?: No Have you ever Experienced Delirium Tremens(DT)s?: No Have you ever undergone Alcohol Rehabilitation Treatment (i.e, inpt ot outpatient treatment programs)?: No Have you ever Experienced Blackouts?: No Have you ever Combined Alcohol with other Downers within the last 90 days?: No Have you ever Combined Alcohol with any other Substance of Abuse during the last 90 days?: No Positive Blood Alcohol level on Presentation? [PCS.BAL]: No Evidence of Increased Autonomic Activity (i.e. HR>120, tremor, sweating, agitation, nausea)?: No Result: 0
[2021-09-07] MEDS: Senna TAB 1 TAB PO (13:43)
--- NOTE | 2021-09-07 13:52 | NUR.NOTE ---
Nursing Note: Cristy Cool from case management in room talking to patient and her son at this time. Dalia Cool also saw patient at approximately 1100 this morning.
--- NOTE | 2021-09-07 15:59 | CHAPLAIN ---
Sienna was visiting with her son, Quinn, when I stopped in. Quinn is planning to have Sienna go to his home in [place] after she is discharged. Quinn is a nurse. He plans to meet with Dr. Buckley on Friday (09/10) as he is surprised that Sienna is still requiring high levels of oxygen. Quinn is also keeping other family members (including his brother and sister) updated on Sienna's condition. Sienna said she is grateful for Quinn's involvement. I let Sienna know that I'm electron beam welding machine operator this weekend and would come in anytime if she needed a improvement specialist visit.
[2021-09-07 16:28] LABS: Blastomyces Ag Result Not Detected; Blastomyces Ag Value Not Detected
[2021-09-07] MEDS: Atorvastatin 20 MG TAB PO (19:44)
[2021-09-07] MEDS: Melatonin 3 MG TAB PO (21:48)
[2021-09-07] MEDS: Zolpidem 5 MG TAB PO (22:16)
[2021-09-08] VITALS (198 sets, daily range): BP systolic 104–139; BP diastolic 57–78; PULSE 77–106; RESP 2–37; TEMP 31–36.6; O2SAT 68–100
[2021-09-08] MEDS: Albuterol 2.5 MG/3 ML INH SOLN VIAL UPD ×2 (00:42→04:32)
[2021-09-08] MEDS: guaiFENesin/CODEINE PHOSPHATE 10 ML CUP PO ×4 (02:04→19:01)
[2021-09-08] MEDS: Levothyroxine 50 MCG TAB PO (05:52)
[2021-09-08] MEDS: Ibuprofen 400 MG TAB PO (05:52)
[2021-09-08 07:41] LABS: Magnesium 2.1 mg/dL (1.8-2.4)
[2021-09-08 07:48] LABS: ALT 27 U/L (14-59); AST 29 U/L (15-37); Albumin 2.8 g/dL (3.4-5.0); Alkaline Phosphatase 49 U/L (46-116); Anion Gap 7.1 mmol/L (3-11); BUN 25 mg/dL (7-18); Bilirubin, Total 0.4 mg/dL (0.2-1.0); CO2 27.9 mmol/L (21.0-32.0); CREATININE 0.8 mg/dL (0.55-1.02); Calcium 8.6 mg/dL (8.5-10.1); Chloride 93 mmol/L (98-107); Glucose 107 mg/dL (74-106); Potassium 4.3 mmol/L (3.5-5.1); Sodium 128 mmol/L (136-145); Total Protein 6.3 g/dL (6.4-8.2)
[2021-09-08] MEDS: Potassium Chloride 20 MEQ TABCR PO (08:27)
[2021-09-08] MEDS: Atenolol 50 MG TAB PO (08:28)
[2021-09-08] MEDS: Losartan 50 MG TAB 100 MG PO (08:28)
[2021-09-08] MEDS: Sertraline 50 MG TAB PO (08:28)
[2021-09-08] MEDS: predniSONE 20 MG TAB 60 MG PO (08:28)
[2021-09-08] MEDS: Benzonatate 200 MG CAP PO ×3 (08:29→20:07)
[2021-09-08] MEDS: Milk of Magnesia 30 ML CUP PO (08:29)
[2021-09-08] MEDS: Albuterol/Ipratropium 3 ML UPD VIAL UPD ×4 (08:30→20:06)
[2021-09-08] MEDS: Budesonide/Formoterol 160/4.5 6 GM 60 PUFF INH IH ×2 (08:30→20:06)
[2021-09-08] MEDS: Normal Saline Flush 10 ML SYR IVP (08:30)
[2021-09-08] MEDS: Polyethylene Glycol 3350 17 GM PACKET PO ×2 (08:31→20:07)
[2021-09-08] MEDS: Enoxaparin 40 MG/0.4 ML SYR SC (08:31)
[2021-09-08] MEDS: Furosemide 20 MG TAB PO ×2 (08:31→15:56)
[2021-09-08] MEDS: Docusate Sodium 100 MG CAP PO (08:32)
[2021-09-08] MEDS: Famotidine 20 MG TAB PO (08:32)
[2021-09-08] MEDS: Magnesium Oxide 400 MG TAB PO ×2 (08:32→20:07)
[2021-09-08] MEDS: Senna TAB 1 TAB PO (08:32)
--- NOTE | 2021-09-08 10:55 | PT.INTREAT ---
Date of service: 09/08/21 Time of Service: 08:47 PT Notes Visit Reasons: Hypoxic Respiratory Failure,Pulmonary Fibrosis, Inpatient Physical Therapy Treatment Note [facility] Date: 09/08/2021 PRECAUTIONS: Activity as Tolerated SUBJECTIVE: Sienna states that she is feeling a little better but feels that she is still quite weak. She is pleasant and agreeable to participating in PT. OBJECTIVE: PAIN: No c/o pain BED MOBILITY/TRANSFERS Sit-stand: I Stand-sit: I Bed-Chair: S Chair-bed: S GAIT Assistive Device: No AD Weight bearing: Full Assist: S Distance: ~15' Deviation: Slow pacing VITALS: 87-90% on 12L O2 via NC with oximizer with gait training THEREX: Patient was instructed in a seated UE and LE strengthening program, as per flow sheet. She requires rests between each exercise due to minimal SOB and global fatigue. ASSESSMENT: Patient was able to tolerate a progression in gait distance without assistive device support. She continues to demonstrate limited activity tolerance, and global weakness due to recent immobility due to illness. PLAN: Continue with global strengthening and general conditioning for continued progression toward independent baseline level of function. TREATMENT CODE/TIME: 38 minutes; 74129 x2, [id number] (08:47)
--- NOTE | 2021-09-08 11:05 | PGE_ITS ---
Date of Service Date of service: 09/08/21 Time of Service: 11:05 Assessment and Plan Assessment and plan (1) Acute exacerbation of idiopathic pulmonary fibrosis: Status: Acute Assessment and plan: Status post fiberoptic bronchoscopy with BAL of right middle lobe 08/31/2021. BAL was sent to [facility] for viral, TB, fungal studies. Fluid cell count showed predominantly mononuclear cells. But no bacteria were seen. Studies for adenovirus DNA, parainfluenza 1, 2, 3, 4 all negative. Rhinovirus PCR was negative. Human metapneumovirus RNA was negative. Urine for histoplasma antigen was not detected. Bacterial cultures grew few usual oropharyngeal stalin. Beta D glucan was not detected. AFB culture is pending. And fungal cultures are still pending. Patient remains on high-dose prednisone 60 mg daily and she is on prophylactic Bactrim to prevent P JULIO CESAR. She remains on Symbicort 160/4.5 mcg 2 puffs twice daily along with scheduled doses of DuoNeb 4 times daily and as needed albuterol updrafts every 2 hours. I will asked respiratory to look into matching her oxygen needs with activity. I suspect she is going need a higher flow oxygen with activity. I will also ch balaji a portable chest x-ray to make sure the pneumonic consolidation has not developed in the interim since her BAL was performed last week. (2) Acute and chronic respiratory failure with hypoxia: Status: Acute Assessment and plan: As above. PE was ruled out on admission with a CTA of the chest. If chest x-ray is unknown changed we may need to consider repeating her CTA of her chest. (3) Elevated troponin: Status: Acute Assessment and plan: Secondary to type II demand ischemia brought on by her hypoxemia which led to her PSVT. Patient currently has no symptoms of chest pain. (4) SVT (supraventricular tachycardia): Status: Resolved Assessment and plan: self limited d/t hypoxemia. Will continue to monitor. Rhythm remains sinus rhythm however during periods of activity that are associated with severe hypoxemia she will go and will bundle branch block. (5) Hypokalemia: Status: Resolved Assessment and plan: Patient had presented with hypokalemia on admission secondary to recent initiation of hydrochlorothiazide. HCTZ has now been discontinued. However patient remains on furosemide 20 mg twice a day but is currently being repleted with potassium 20 mEq daily. Current potassium level is 4.3. BUN and creatinine are stable at 25 and 0.8. Magnesium level stable at 2.1. (6) Hypomagnesemia: Status: Resolved Assessment and plan: Magnesium has been repleted and is now up to 2.1. Currently is on magnesium supplement magnesium oxide 400 mg twice daily. (7) Rib fracture: Status: Acute Assessment and plan: Right ninth rib likely due to cough as the patient is denying trauma. 25 hydroxy Vitamin D level was low at 14.8 ng/mL. Patient now on ergocalciferol 50,000 units weekly. Qualifiers: Encounter type: initial encounter Rib fracture type: single rib Fracture type: closed Laterality: right Qualified Code(s): S22.31XA - Fracture of one rib, right side, initial encounter for closed fracture (8) Discharge planning issues: Status: Acute Assessment and plan: Full code as confirmed by conversation with the patient on admission. Discharge plans for her to move to [place] to live w/ her son who is a visiting nurse. CM and RT are assisting her in setting up her home oxygen and any other medical equipment she will need. (9) DVT prophylaxis: Status: Acute Assessment and plan: Enoxaparin 40 mg SC daily Subjective Subjective Interval history since last seen: Patient remains on high flow nasal cannula at 8 L/min at rest and requires 12 L/min with activity. And at rest when she is not coughing her saturation is in the low 90s. However with paroxysms of coughing her oxygen saturation will drop down into the 70s but quickly recovers. However with any kind of activity such as getting up to use the bedside commode or washing up she will desaturate into the high 40s and associated with a bundle branch block. Takes her a while to recover. Nursing has noted that her hypoxemia often will not occurred during the physical activity but will happen shortly after she gets back to bed. Cough remains nonproductive and she remains afebrile. She remains on high-dose prednisone along with inhaled L.A.B.A/I.C.S. (Symbicort) along with scheduled doses of DuoNeb aerosol treatments and as needed albuterol treatments which seems to help with her coughing and wheezing. She continues to take the Robitussin AC which helps with her cough and for breakthrough coughing she will use the Tessalon Perles. Exam Narrative Exam Narrative: Pleasant white female sitting up in bed and at rest she is able to talk in complete sentences without becoming terribly dyspneic. Neck veins are flat Lungs with bilateral fine rales heard in all lung ventura but more prominent at the bases. Anteriorly she has an inspiratory wheeze in the left upper chest Heart is regular rate and rhythm without appreciable murmur rub Abdomen soft and nontender nondistended Extremities without peripheral edema or cyanosis or calf tenderness Objective Last Vital Signs Temp 36.1 C L 09/08/21 08:12 Pulse 98 H 09/08/21 09:00 Resp 18 09/08/21 09:00 BP 132/70 09/08/21 08:00 Pulse Ox 92 09/08/21 09:15 Laboratory Results - last 24 hr 08/31/21 09/08/21 09/08/21 17:40 06:10 06:10 Sodium 128 L Potassium 4.3 Chloride 93 L Carbon Dioxide 27.9 Anion Gap 7.1 BUN 25 H Creatinine 0.8 Estimated GFR/1.73 m2 >= 60.00 Glucose 107 H Calcium 8.6 Magnesium 2.1 Total Bilirubin 0.4 AST 29 ALT 27 Alkaline Phosphatase 49 Total Protein 6.3 L Albumin 2.8 L Blastomyces Ag Result Not Detected Blastomyces Ag Comment Not Detected PAWSS Have you Been Recently Intoxicated or Drunk Within the Last 30 days?: No Have you Ever Experienced Previous Episodes of Alcohol Withdrawal?: No Have you ever Experienced Withdrawal Seizures?: No Have you ever Experienced Delirium Tremens(DT)s?: No Have you ever undergone Alcohol Rehabilitation Treatment (i.e, inpt ot outpatient treatment programs)?: No Have you ever Experienced Blackouts?: No Have you ever Combined Alcohol with other Downers within the last 90 days?: No Have you ever Combined Alcohol with any other Substance of Abuse during the last 90 days?: No Positive Blood Alcohol level on Presentation? [PCS.BAL]: No Evidence of Increased Autonomic Activity (i.e. HR>120, tremor, sweating, agitation, nausea)?: No Result: 0
--- NOTE | 2021-09-08 11:15 | DI.RAD_ITS ---
Exam(s) XR PORTABLE CHEST AP EXAM: XR PORTABLE CHEST AP CLINICAL HISTORY: hypoxemia, ILD. TECHNIQUE: 2D digital imaging was performed. COMPARISON: CT CHEST WITH CONTRAST from 01/19/2016 CT CHEST WITH CONTRAST from 01/19/2016 CR,XR XR PORTABLE CHEST AP from 08/30/2021 CR,XR XR PORTABLE CHEST AP from 08/30/2021 CR XR PORTABLE CHEST AP from 09/03/2021 FINDINGS: Heart size is upper normal. The mediastinum is not widened. There is no radiographic improvement in the extensive bilateral interstitial and confluent disease in both lung ventura. Most probably acute on chronic disease. No pleural effusions. No pneumothorax. Cardiac leads again noted. IMPRESSION: No radiographic improvement. DATA REPOSITORY: RADIATION DOSE DELIVERED: All CT scans at this facility use at least one of these dose optimization techniques: automated exposure control; mA and/or kV adjustment per patient size (includes targeted e xams where dose is matched to clinical indication); or iterative reconstruction.
--- NOTE | 2021-09-08 12:38 | DI.VRAD_ITS ---
PROCEDURE INFORMATION: Exam: XR Chest Exam date and time: 09/08/2021 11:20 AM Age: 71 years old Clinical indication: Shortness of breath TECHNIQUE: Imaging protocol: XR of the chest. Views: 1 view. COMPARISON: CR XR PORTABLE CHEST AP 09/03/2021 8:52 AM FINDINGS: Lungs: Bilateral airspace disease consistent with a bilateral pneumonitis process. Most significant in the right upper lobe and left lower lobe. There is some involvement of the right lung base which may be right lower lobe. In comparison with prior study 09/03/2021, there appears to be a slight progression of the degree of airspace disease. Pleural spaces: No pleural effusion. Heart/Mediastinum: Normal heart size. Bones/joints: Degenerative thoracic spine disease. IMPRESSION: Bilateral pneumonitis most prominent in the right upper lobe and left lower lobe with some features suggesting slight worsening of the degree of disease since 09/03/2021. Dictated and Authenticated by: Federico Peña MD. Ordering:[facility] Angelia Kaiser MD
[2021-09-08 13:11] LABS: C-Reactive Protein 3.13 mg/dL (0.0-0.3)
[2021-09-08 13:46] LABS: Procalcitonin < 0.1 ng/mL
[2021-09-08] MEDS: Atorvastatin 20 MG TAB PO (20:07)
[2021-09-08] MEDS: Pantoprazole 40 MG TABCR PO (20:07)
--- NOTE | 2021-09-08 21:08 | DSE_ITS ---
Date of service: 09/08/21 Time of Service: 21:09 DS: Diagnosis Discharge Diagnosis (1) Acute exacerbation of idiopathic pulmonary fibrosis: Status: Acute Asessment and Plan: Patient presented with worsening dyspnea and hypoxemia with bilateral Groundglass opacities with patchy consolidations and increased interstitial markings with peripheral honeycombing along with peripheral basilar blebs. Pulmonary/critical care medicine consultation was obtained with our local design editor Dr. Lina White. Work-up for potential infectious etiology was performed including fiberoptic bronchoscopy BAL washings with cultures for bacterial and fungal as well as respiratory viral pathogens and TB. All of which so far have been negative. Patient was treated with IV Solu- Medrol on admission and then transition to oral prednisone 60 mg daily and treated with high flow nasal cannula at 50 L/min which was eventually weaned down to a nasal cannula 8 L/min but with worsening hypoxemia had to go back on high flow nasal cannula at 50 L/min and an FiO2 of 50%. See hospital course for details. On the day of transfer a phone consultation was obtained with pulmonary and critical care medicine from [facility] who accepted the patient in transfer to their medical ICU. Patient was treated with high-dose Solu-Medrol 1000 mg IV on the day of transfer. (2) Acute and chronic respiratory failure with hypoxia: Status: Acute (3) Elevated troponin: Status: Resolved Asessment and Plan: Patient had a transient elevation of her troponin I levels that peaked at 0.40 on admission and declined down to 0.17 by the next morning of 08/31/2021. Cardiology consultation was obtained with Dr. Sienna Wong who felt that the patient had a type II demand ischemia secondary to her PSVT and hypoxemia. Echocardiogram demonstrated normal LV function. (4) SVT (supraventricular tachycardia): Status: Resolved Asessment and Plan: PSVT felt to be secondary to hypoxemia. Patient also demonstrated intermittent bundle branch block during periods of hypoxemia. Both resolved with correction of her hypoxemia. Serial troponins were monitored and peaked at 0.40 on admission and declined down to 0.17 by the next morning on 08/31/2021. Echocardiogram demonstrated normal LV function. (5) Rib fracture: Status: Acute Asessment and Plan: Acute/subacute displaced right 10th rib fracture, old right ninth rib fracture felt to be secondary to prolonged coughing. No history of trauma. Paroxysms of coughing were treated with Robitussin AC and as needed use of Tessalon Perles Discharge Plan Disposition Patient Disposition: [facility] Condition: Critical Discharge Details Reason For Visit: Hypoxic Respiratory Failure,Pulmonary Fibrosis, Admit Date/Time: 08/30/21 18:49 Admit Provider: Lisa Li Attending Provider: Lisa Li Primary Care Provider: Regi Helton [place] [facility] Hospital Course: 71-year-old female with a history of pulmonary fibrosis on Ofev who has chronic hypoxic respiratory failure requiring 2 L of oxygen at baseline, oxygen was initiated about 6 weeks ago by [facility] pulmonology. Patient is followed by Dr. Guzman Shepherd at [facility]. Patient presented to the emergency department at [facility] on 08/30/2021 with worsening dyspnea with hypoxemia over the last couple days prior to admission. She reportedly had a low-grade fever of 100.9 a couple days prior to admission but denied any purulent sputum production or chills or rigors. Oxygen saturation was dropping down into the 70s percent at rest. On arrival to the emergency department her oxygen saturation was between 60 to 70% on 2 L per n grisel cannula and her oxygen requirements were increased to 9 L/min. Patient had been complaining of palpitations and while in the emergency department was noted to go into nonsustained SVT. Nasal swab for SARS-CoV-2 was negative on admission. She was found to have an elevated troponin of 0.4 without ischemic changes on her EKG and that trended down to 0.29. CT of the chest was performed and a PE was ruled out. However she was found to have worsening pulmonary fibrosis as evidenced by bilateral groundglass opacities with a patchy appearance and increased interstitial markings with peripheral honeycombing and traction bronchiectasis as well as subacute right 10th rib fracture and an old right ninth rib fracture. Patient was admitted to the intensive care unit and started on high flow nasal cannula at 50 L/min and 40% FiO2 achieving oxygen saturations in the 90% range. For her hypoxic respiratory failure she was started on high-dose prednisone 60 mg daily after being given a total of 120 mg of methylprednisolone in the emergency department. For her work-up of potential infectious etiology initial CBC on admission showed a normal white cell count of 5800 with no leftward shift in her neutrophils. Her procalcitonin level on admission was 0.1. Subsequent level was checked on the day of transfer and it remained less than 0.1. Pulmonology consultation was obtained with Dr. Lina White who saw the patient on August 31, 2021 and performed fiberoptic bronchoscopy with BAL washings of her right middle lobe. BAL cell count showed 30% PMNs and 70% mononuclear cells. Gram stain showed no bacteria. Culture grew few usual oropharyngeal stalin. Bronchial washings were processed through [facility] pathology. Studies for fungal etiology were performed including BAL for Blastomyces antigen which came back negative. Urine was sent for histoplasma antigen which came back negative. BAL was sent for respiratory viral PCR testing and came back negative for parainfluenza type I, type II, type III, type IV RNA as well as adenovirus DNA and metapneumovirus RNA and rhinovirus RNA. AFB culture as well as fungal culture were sent. 1, 3 beta D glucan was not detected. For treatment of her ILD after she was initially treated with 120 mg of Solu- Medrol in the emergency department she was put on prednisone 60 mg daily which was continued until the day of her transfer when she was given a dose of Solu- Medrol 1000 mg IV. She was kept on her home dose of nintedanib 100 mg bid. Patient CRP was high at 22.5 on admission but at the time of transfer to [facility] her CRP was down to 3.1. In spite of being on high-dose prednisone her WBCs never spiked at the time of transfer her total WBC was 8500 with no shift in her neutrophil count. Patient was maintained on high flow nasal cannula between 40 and 50 L/min through September 03, 2021 at which point she was able to be weaned down to 5 L/min per nasal cannula at rest but required 8 to 10 L/min with any activity. On the evening of September 07, 2021 and throughout the day on September 08, 2021 patient was experiencing significant hypoxemic spells with minimal activity such as toileting with oxygen saturations that would drop down into the high 40s and low 50s occurring within a couple minutes of activity and taking as long as 3 minutes to recover even wit h higher flow nasal cannula at 10 to 12 L/min patient was transitioned to high flow nasal cannula again in the afternoon on September 08, 2021 and placed at 50 L/min and an FiO2 of 50% in order to maintain her oxygen saturation in the low to mid 90s. Repeat chest x-ray was obtained on September 08, 2021 and showed no radiographic improvement in her extensive bilateral interstitial and confluent lung disease. Discussion was held with her daughter as well as her son and with the patient regarding potential transfer to tertiary care center. Initially family was requesting that she be transferred to [facility] so that she could be closer to her son who works as a nurse in [place]. I spoke with both the transfer center at [facility] as well as the transfer center at [facility]. [facility] was not able to accommodate the transfer request as they were at bed capacity. I spoke with [facility] and after discussing her presentation and hospital course with the on-call critical care fellow Dr. Perez as well as the attending car sweeper Dr. Elizabeth they agreed to accept the patient in transfer to the service of Dr. Chauhan, on the [facility] ICU team. With respect to her work-up of her PSVT and her transient troponin elevation cardiology consultation was obtained with Dr. Sienna Wong and an echocardiogram was ordered. Dr. Wong's impression was that her transient elevation in her troponin levels were secondary to demand ischemia brought on by her hypoxemia and her SVT. She did not recommend further ischemic work-up and recommend continued supportive care and treatment of her underlying interstitial lung disease and avoidance of further hypoxemia. Echocardiogram demonstrated normal left ventricular wall thickness and chamber size with an ejection fraction of 55 to 60% with normal LV wall motion. RV was not well visualized and therefore unable to assess right ventricular function. Both atria were normal in size. She had no significant valvulopathy. Mild tricuspid regurgitation was present and RVSP was estimated at 37 mm. On the day of transfer patient demonstrated intermittent bundle branch block associated with her episodic hypoxemia with minimal activity. These were transient and would resolve once her hypoxemia was corrected. Home Meds and New Rx's Prescriptions: No Action Ofev 100 mg capsule 100 mg PO BID RF: 0 famotidine [Pepcid AC] 20 mg tablet 20 mg PO BID PRNRF: 0 Shingrix (PF) 50 mcg/0.5 mL suspension for reconstitution 0.5 ml IM ONCE Qty: 1 RF: 1 ibuprofen 200 MG capsule 2 tab PO TID PRN Qty: 100 RF: 4 Sodium Chloride For Inhalation [Sodium Chloride] 15 ML VIAL.NEB 15 ml Inhalation BID RF: 0 atenolol 50 mg tablet 50 mg PO DAILY Qty: 90 RF: 4 levothyroxine 50 mcg tablet 50 mcg PO DAILY Qty: 90 RF: 4 losartan 100 mg tablet 100 mg PO DAILY Qty: 90 RF: 4 sertraline 50 mg tablet 50 mg PO DAILY Qty: 90 RF: 4 hydrochlorothiazide 25 mg tablet 25 mg PO DAILY RF: 0 ibuprofen [Advil] 200 mg Tablet 200 mg PO PRN PRNRF: 0 codeine-guaifenesin 10-100 mg/5 mL Liquid 10 ml PO HS PRN (Reason: Cough) RF: 0 atorvastatin 20 mg tablet 20 mg PO HS RF: 0 loratadine-pseudoephedrine [Lorata-D] 10-240 mg tablet extended release 24 hr 1 tab PO DAILY RF: 0 prednisone 10 mg tablet See Rx Instructions .ROUTE .COMPLEX RF: 0 prednisone 10 mg tablet RF: 0 Discharge Instructions Instructions: Pulmonary Fibrosis (DC), Chronic Respiratory Failure (DC), Chronic Lung Disease and Infection Prevention (DC) Activity:: Bedrest Diet:: Normal Diet DS: Summary Time Spent with Patient providing and/or coordinating discharge services: Greater than 30 minutes Status at Discharge Functional status at discharge: bed bound Overall status at discharge: patient is not back to baseline Mental Status: mental status grossly normal Speech and Movement: speech and movement normal Mood: congruent mood Affect: normal affect Exam Narrative Exam Narrative: Pleasant white female sitting up in bed and at rest she is able to talk in complete sentences however she does get dyspneic with prolonged conversation. She is tearful and anxious this evening as she knows that she is requiring higher level of care and is fearful of the potential outcomes. Neck veins are flat Lungs with bilateral fine rales heard in all lung [place]ura but more prominent at the bases. Anteriorly she has an inspiratory wheeze in the left upper chest Heart is regular rate and rhythm without appreciable murmur rub Abdomen soft and nontender nondistended Extremities without peripheral edema or cyanosis or calf tenderness Psych Mental Status: mental status grossly normal Speech and Movement: speech and movement normal Mood: congruent mood Affect: normal affect DS: Data Vitals/I&O Vitals and I&O: Vital Signs Temperature 36.1 C L 09/08/21 16:46 Temperature Source Temporal Artery Scan 09/08/21 16:46 Pulse 89 09/08/21 18:07 Pulse 88 09/08/21 18:35 Respiratory Rate 20 09/08/21 18:35 Respiratory Effort 09/08/21 16:46 Respiratory Depth Normal 09/08/21 16:46 Respiratory Pattern Normal 09/08/21 16:46 Blood Pressure 104/76 09/08/21 18:07 Blood Pressure Mean 83 09/08/21 18:07 Blood Pressure Position Sitting 09/08/21 16:46 Pulse Oximetry 95 09/08/21 18:35 Oxygen Delivery Method Hi Flow Nasal Cannula 09/08/21 18:03 Oxygen Flow Rate 50 09/08/21 18:03 Fraction of Inspired Oxygen (FIO2) 50 09/08/21 18:03 Pain Level 0 09/08/21 16:46 Comment 09/05/21 14:25 Intake & Output 09/07/21 09/08/21 09/08/21 23:59 11:59 23:59 Intake Total 1190 / 1710 705 / 1105 400 / 1105 Output Total 905 / 1190 875 / 2550 1675 / 2550 Balance 285 / 520 -170 / -1445 -1275 / -1445 Weight 57.5 kg Intake: IV 5 / 5 Oral 1190 / 1710 700 / 1100 400 / 1100 Output: Urine 905 / 1190 875 / 2550 1675 / 2550 Other: Urine Color Yellow Light Merari Yellow Urine Appearance Clear Clear Clear Urine Odor Normal Normal None Comment Using bedside commode. Voiding Methods Bedside Commode Bedside Commode Bedside Commode Data Completed and Pending Labs on day of discharge: Labs from last 24 hours 09/08/21 09/08/21 09/08/21 12:55 12:55 06:10 Sodium 128 L Potassium 4.3 Chloride 93 L Carbon Dioxide 27.9 Anion Gap 7.1 BUN 25 H Creatinine 0.8 Estimated GFR/1.73 m2 >= 60.00 Glucose 107 H Calcium 8.6 Magnesium Total Bilirubin 0.4 AST 29 ALT 27 Alkaline Phosphatase 49 C-Reactive Protein 3.13 H Total Protein 6.3 L Albumin 2.8 L Procalcitonin < 0.1 Blastomyces Ag Result Blastomyces Ag Comment 09/08/21 08/31/21 06:10 17:40 Sodium Potassium Chloride Carbon Dioxide Anion Gap BUN Creatinine Estimated GFR/1.73 m2 Glucose Calcium Magnesium 2.1 Total Bilirubin AST ALT Alkaline Phosphatase C-Reactive Protein Total Protein Albumin Procalcitonin Blastomyces Ag Result Not Detected Blastomyces Ag Comment Not Detected PFSH Active Problem List Hyponatremia (Acute) Abnormal CT of the chest (Acute) Acute exacerbation of idiopathic pulmonary fibrosis (Acute) Rib fracture (Acute) Acute and chronic respiratory failure with hypoxia (Acute) Hypoxia (Acute) Non-ST elevation [place] (NSTEMI) (Acute) Factor V Leiden carrier (Chronic) Pulmonary fibrosis (Chronic) Medical History Cervical 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 (10/30/11) h/o LEEP 2003 Chronic low back pain Chronic respiratory failure with hypoxia Depression (06/20/15) Factor V Leiden mutation H/O cervical fibromuscular dysplasia (06/23/15) HTN (hypertension) Hyperlipidemia Hypothyroidism (acquired) Impaired fasting glucose (09/19/12) Mass of skin (12/01/12) Pulmonary fibrosis Pulmonary nodule, right 07/2021- 10 mm, with enlarged hilar lymph node- rec 3 mo f/- [facility] following Rupture of right tympanic membrane (02/07/15) due to infection, healed 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 HIRAM Zaragoza of colonoscopy S/P right knee arthroscopy Family History Mother , AGE 63 Essential hypertension Heart disease Lung cancer Hypertension Father , AGE 81 Essential hypertension Stroke Lung cancer Heart disease Hypertension Sister , AGE 63 Essential hypertension Hyperlipidemia Bladder cancer Maternal Grandfather , age 56 Essential hypertension Heart disease Stroke Hypertension Paternal Grandfather , age 59 Throat cancer Hypertension Maternal Grandmother , age 54 Diabetes Hypertension Paternal Grandmother , age 82 Stomach cancer Hypertension Maternal Aunt Breast cancer Social History Smoking/Tobacco Use Status: Former Tobacco Use Quit Date: 10/13/05 Tobacco: How many years used: 5 Second Hand Exposure: Yes (As a child) Smoking risk assessment performed?: Yes Alcohol Intake: current Alcohol Intake frequency: a few times a week Alcohol type: wine Drug use: Never Substance use type: does not use Caregiver/Support person: No Household members: none Housing: house Number of Children: 3 Communication Needs: None Education Level: college Do you need help understanding health information?: Never 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 Pets and animals: No Sexually active: No Do you think of yourself as: straight/heterosexual Current gender identity: female What is your relationship status?: How often do you talk on the phone with friends or family?: three or more times per week How often do you get together with friends or relatives?: three or more times per week How often do you attend congregational or temple services?: 4 or more times per year Do you belong to any clubs or organized social groups?: yes Panel score (0-1 are the most socially isolated patients): 3 What type of physical activity do you participate in: walking Duration: 15-30 minutes/day Frequency: daily Jayde/Jainism: Scientologist Special jayde needs: No Seatbelt use: always Helmet use: Yes Helmet use: always Drive intox or ride w/intox route sales delivery drivers supervisor: No Female Reproductive History Menstrual Menopause type: natural History History 3 Para Hx # Term Pregnancies 3 Multiple births Hx # Pregnancies Ectopic pregnancies AB induced Hx Number of Living Children AB spontaneous
[2021-09-08] MEDS: diazePAM 2 MG TAB PO (22:13)
[2021-09-08] MEDS: Melatonin 3 MG TAB PO (22:13)
[2021-09-09] VITALS: PULSE 100; RESP 20; TEMP 36.6; O2SAT 87
[2021-09-09] MEDS: guaiFENesin/CODEINE PHOSPHATE 10 ML CUP PO (00:11)
[2021-09-09] MEDS: Albuterol 2.5 MG/3 ML INH SOLN VIAL UPD (00:18)
[2021-09-09 00:28] VITALS: BP 126/105; PULSE 95; RESP 20; O2SAT 92
[2021-09-09 00:48] VITALS: RESP 4
[2021-09-09 01:00] VITALS: PULSE 93; RESP 26; O2SAT 96
[2021-09-09 02:00] VITALS: PULSE 97; RESP 25; O2SAT 94
[2021-09-28 12:53] LABS: Fungus Smear No Fungi Seen
== END 2021-09-09 02:25 | disposition short-term general hospital (02) | DRG 196 ==
LOC: ER 22:19 → ICU 23:27
PROVIDERS: Family Medicine; Internal Medicine; Student in an Organized Health Care Education/Training Program; Admitting Provider Internal Medicine; Emergency Provider Emergency Medicine; PCP Nurse Practitioner; Visit Provider Internal Medicine
DX: J84.112 Idiopathic pulmonary fibrosis (principal); J96.21 Acute and chronic respiratory failure with hypoxia; I21.A1 Myocardial infarction type 2; S22.31XA Fracture of one rib, right side, initial encounter for closed fracture; I47.1 Supraventricular tachycardia; E87.1 Hypo-osmolality and hyponatremia; D68.51 Activated protein C resistance; Z20.822 Contact with and (suspected) exposure to COVID-19; E87.6 Hypokalemia; E83.42 Hypomagnesemia; R73.01 Impaired fasting glucose; M54.50 Low back pain, unspecified; G89.29 Other chronic pain; F32.A Depression, unspecified; I10 Essential (primary) hypertension; E78.5 Hyperlipidemia, unspecified; E03.9 Hypothyroidism, unspecified; Z87.891 Personal history of nicotine dependence; X50.3XXA Overexertion from repetitive movements, initial encounter
CPT/HCPCS: 36415; 71275; 80048; 80053; 80061; 82306; 82805; 84145; 85027; 87070; 87102; 87116; 87205; 87206; 87449; 87632; 87635; 89051; 93005; 93306; 94640; 96361; 96365; 96366; 96367; 96375; 97110; 97162; 97530; 99221; 99285; J1650; 71045; 83735; 83880; 84484; 85025; 86140; 87385; 93010; 99223; 99232; 99233; 99239; 99291; J2250; J2930; J3010; J3475; J3480; J3490; J7512; J7613; J7620

== ENCOUNTER → 2021-08-31 09:49 | Outpatient (BNVA) | payer MEDICARE, BC, SELFPAY ==
--- NOTE | 2021-09-10 17:40 | PT.INDS ---
Date of service: 09/10/21 PT Notes Visit Reasons: INPT Consult - Elecated Troponin Physical Therapy Inpatient Discharge Summary Date: 09/10/2021 Dates of Service: 09/07/2021 through 09/08/2021 This is a clinical summary of care provided for the duration of dates listed above. No charge was made in the completion of this documentation. Referring Doctor: Porfirio Beltran MD PT Orders: PT CONSULT: Eval/treat Precautions: Fall. Standard. Activity as tolerated. Patient Profile/Admitting Diagnosis: Sienna is a 71-year-old female with diagnosis of exacerbation of idiopathic pulmonary fibrosis, acute on chronic respiratory failure with hypoxia, elevated troponin, hypokalemia, hypomagnesemia, rib fracture, and hyponatremia. Active Problem List Elevated troponin (Acute) Acute exacerbation of idiopathic pulmonary fibrosis (Acute) Rib fracture (Acute) Hypomagnesemia (Acute) Hypokalemia (Acute) Discharge planning issues (Acute) DVT prophylaxis (Acute) Acute and chronic respiratory failure with hypoxia (Acute) Hypoxia (Acute) Non-ST elevation [place] (NSTEMI) (Acute) Factor V Leiden carrier (Chronic) Pulmonary fibrosis (Chronic) PMHX: Medical History Cervical 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 (10/30/11) h/o LEEP 2003 Chronic low back pain Chronic respiratory failure with hypoxia Depression (06/20/15) Factor V Leiden mutation H/O cervical fibromuscular dysplasia (06/23/15) HTN (hypertension) Hyperlipidemia Hypothyroidism (acquired) Impaired fasting glucose (09/19/12) Mass of skin (12/01/12) Pulmonary fibrosis Pulmonary nodule, right 07/2021- 10 mm, with enlarged hilar lymph node- rec 3 mo f/- [facility] following Rupture of right tympanic membrane (02/07/15) due to infection, healed 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 HIRAM Zaragoza of colonoscopy S/P right knee arthroscopy Social History/Home Situation: Sienna states that she will be recuperating at her son's house in [place] when medically cleared for discharge from this hospital. Independent with all aspects of ADLs without an assistive ambulatory device. Equipment Owned/DME: None Subjective: NT. See most recent POTTERY DECORATION DESIGNER notes. Objective: General Observation: NT. See most recent POTTERY DECORATION DESIGNER notes. Mental Status: NT. See most recent POTTERY DECORATION DESIGNER notes. Pain: NT. See most recent POTTERY DECORATION DESIGNER notes. Vital Signs: NT. See most recent POTTERY DECORATION DESIGNER notes. ROM: Right Upper Extremity: Shoulder Flexion WFL. Shoulder abduction WFL. Elbow flexion WFL. Wrist flexion WFL. Functional opening and closing of hand WFL. Left Upper Extremity: Shoulder Flexion WFL. Shoulder abduction WFL. Elbow flexion WFL. Wrist flexion WFL. Functional opening and closing of hand WFL. Right Lower Extremity: Hip flexion WFL. Hip abduction WFL. Knee flexion WFL. Ankle dorsiflexion WFL. Ankle plantarflexion WFL. Left Lower Extremity: Hip flexion WFL. Hip abduction WFL. Knee flexion WFL. Ankle dorsiflexion WFL. Ankle plantarflexion WFL. Strength: Right Upper Extremity: Shoulder flexors 4/5. Shoulder abductors 4/5. Elbow flexors 5/5. Elbow extensors 5/5. Meter Engineer strong. Left Upper Extremity: Shoulder flexors 4/5. Shoulder abductors 4/5. Elbow flexors 5/5. Elbow extensors 5/5. Meter Engineer strong. Right Lower Extremity: Hip flexors 4/5. Hip abductors 5/5. Knee flexors 5/5. Knee extensors 4/5. Ankle dorsiflexors 5/5. Ankle plantarflexors 5/5. Left Lower Extremity: Hip flexors 4/5. Hip abductors 5/5. Knee flexors 5/5. Knee extensors 4/5. Ankle dorsiflexors 5/5. Ankle plantarflexors 5/5. Bed Mobility/Transfers: Rolling independent Supine to sit independent Sit to supine independent Sit to stand independent Stand to sit independent Bed to reclining chair supervision Reclining chair to bed supervision Gait: Instructed patient with level surface ambulation of 10-15 feet requiring supervision. Destiney decreased. Desaturation down to 87%-90% on 12 L/min. Denies dizziness. Balance: Static Sitting: Normal Dynamic Sitting: Normal Static Standing: Good Dynamic Standing: Good Assessment: Sienna demonstrates decreased activity tolerance and desaturation to low levels even with high rate of oxygen supplementation during mobility performance. Needs to demonstrate saturation level WNL consistently. Patient presents with clinical signs and symptoms consistent with current/admitting diagnoses that have resulted to mobility limitations and activity limitations demonstrated by the following impairment level findings: 1. Impaired activity tolerance 2. Significant desaturation with minimal activity Impairments are contributing to the following functional limitations: 1. Difficulty with ambulation due to aberrant saturation level despite high rate of oxygen supplementation 2. Increased completion time for mobility ADL performance Goals: Goals X1 week 1. Supine-Sit independent MET 2. Sit-Supine independent MET 3. Sit-Stand independent MET 4. Stand-Sit independent with no assistive device MET 5. Bed-Chair independent with no assistive device NOT MET 6. Chair-Bed independent with no assistive device NOT MET 7. Independent gait on level surface with use of no assistive device for at least 50 feet without report of pain nor dyspnea NOT MET 8. Independent stair negotiation while holding onto 5 rails for at least 3 steps without report of pain nor dyspnea NOT MET Plan of Care/Treatment Plan: 1-2x/day, 7 days/week x 1 week. Plan of care has been reviewed with the POTTERY DECORATION DESIGNER providing the service under Physical Therapy direction. Initiate Physical Therapy intervention for pain management as needed, strengthening, bed mobility, transfers, gait, stairs, balance training, and use of assistive device. DISCHARGE RECOMMENDATIONS: [] Home with no services [] [X] Home with services. Home when medically cleared by hospitalist. Will benefit from home health PT services in order to progress mobility level to premorbid independent status without an assistive device. [] Home with outpatient PT [] [] SNF for continued rehabilitation [] [] Longterm Care [] [] SNF versus LTC based on ability to participate and progress [] TREATMENT CODE/TIME: NC Thank you for the opportunity to participate in the care of this patient. Ainsley Gloria PT, DPT, CLT [facility] [place], [place]
== END ==
PROVIDERS: PCP Nurse Practitioner; Referring Provider Nurse Practitioner; Visit Provider Internal Medicine Cardiovascular Disease
DX: R69 Illness, unspecified (principal)